=== PATIENT | female | born 1975 | race Caucasian/White ===

== ENCOUNTER 2023-07-12 09:57 | Outpatient (AMB) | payer OTHER, SELFPAY ==
--- NOTE | 2023-07-12 10:00 | MHC.PC.OV ---
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 She would like to see Ortho for right small toe, and degerative disc disease in her neck. Is last menstrual period known: No (hystorectomy in 2019) Allergies buspirone [From BuSpar] Adverse Reaction (Mild, Verified 07/12/23 10:08) anxiety, jittery steri strips Allergy (Mild, Uncoded 07/12/23 10:08) burning skin Medication List - Last Reconciled 07/12/23 by Ney Fermin MD albuterol (refill) 90 mcg/actuation mcg inhalation buprenorphine-naloxone 2-0.5 mg (Suboxone) 1 film buccal DAILY clonidine HCl 0.1 mg PO BID escitalopram oxalate 20 mg PO DAILY hydroxyzine HCl 10 mg PO BEDTIME Tobacco use date assessed: 07/12/23 Dental Screening Dental Screen Date: 07/12/23 Did you have a dental visit in the last 12 months?: Yes Did you have a dental problem in the last 6 months where you did not have access to dental care?: No Was dental information given to patient?: Patient has dentist HPI 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 Cervicalgia, Fibroids SurgHx: Hysterctomy, L breast lumpectomy benign x 2. Iridotomy b/L FHx: Mom: Breast CA., Anx/Dep. Dad: Anx/Dep. SocHx: Smokes 1/2 ppd. EtoH None. MJ daily. No recent drug since 2010 IV and opiods 2018 [facility] Medical History (Updated 07/12/23 @ 10:56 by Joe Mariano) Pneumothorax Cellulitis Pneumonia Tuberculosis Hepatitis Surgical History S/P lumpectomy, left breast [place] teeth extracted H/O: hysterectomy Family History Mother Breast cancer Anxiety Depression Substance use disorder Father Mental health disorder Paternal Grandmother Breast cancer Social History Household Members: Family Both parents involved: No Caregiver staying overnight: No Housing: House Are you a primary critical care unit manager to a significant other at home: No Do you presently have visiting nurse or other home services: No 75 years or older and lives alone: No Alcohol intake: former Patient Tobacco Use Status: Current everyday Tobacco user Tobacco use type: Cigarette Cigarette Packs Per Day: 10 e-Cigarette/Vaping Use: Never Used Patient Interested in Nicotine Replacement: No Use of substances other than those prescribed or required for medical reasons: Yes Substance Use Type: Club/Commercial Credit Lead Drugs, Crack/Cocaine, Hallucinogens, Heroin, IV Drugs, Marijuana, Opiates, Other, Painkillers and Prescription Drugs Substance Use Type Other:: cannabis Last Used Substance Other:: 2019 clean since Have you been hit, kicked, punched, or otherwise hurt by someone within the past year? 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 1. Little interest or pleasure in doing things: more than half the days 2. Feeling down, depressed, or hopeless: more than half the days 3. Trouble falling or staying asleep, or sleeping too much: several days 4. Feeling tired or having little energy: several days 5. Poor appetite or overeating: several days 6. Feeling bad about yourself - or that you are a failure or have let yourself or your family down: several days 7. Trouble concentrating on things, such as reading the newspaper or watching television: more than half the days 8. Moving or speaking so slowly that other people could have noticed. Or the opposite - being so fidgety or restless that you have been moving around a lot more than usual: several days 9. Thoughts that you would be better off or of hurting yourself in some way: not at all Total score: 11 Depression Screening Interpretation: Positive Depression Screening Done: Yes 39761 - PHQ-9 Billing: Yes Source: Developed by Drs. Kingston Neff, Tyesha Silver, Roberto Tamayo and colleagues, with an educational yovany from [employer]. Thrive Questionnaire Date Thrive assessed: 07/12/23 I am a: Patient What is your living situation today?: I have a steady place to live Within the past 12 months, did the food you bought not last and you didn't have the money to get more?: Never true Within the past 12 months, did you worry whether your food would run out before you got money to buy more?: Never true Do you have trouble paying for medicines?: No Do you have trouble getting transportation to medical appointments?: No Do you have trouble paying your heating and electricity bill?: No Do you have trouble taking care of your child, family member or friend?: No Do you have trouble with day-to-day activities such as bathing, preparing meals, shopping, managing finances, etc.?: No Are you currently unemployed and looking for a job?: No Are you interested in more education?: No THRIVE Score: 0 AUDIT C Alcohol Use Questionnaire (AUDIT-C) 1. How often do you have a drink containing alcohol?: Never 3. How often do you have six or more drinks on one occasion?: Never Total Score: 0 CHEMA-7 AMB Questionnaire CHEMA-7 Date CHEMA - 7 assessed: 07/12/23 Feeling nervous, anxious, or on edge: 2 = More than half the days Not being able to stop or control worryin = More than half the days Worrying too much about different things: 2 = More than half the days Trouble relaxin = More than half the days Being so restless that it is hard to sit still: 2 = More than half the days Becoming easily annoyed or irritable: 0 = Not at all Feeling afraid as if something awful might happen: 2 = More than half the days Total CHEMA-7 score (0-4 normal; 5-9 mild; 10-14 moderate; 15-21 severe): 12 Source: Developed by Drs. Kingston Neff, Tyesha Silver, Roberto Tamayo and colleagues, with an educational yovany from [employer]. CHEMA-7 Assessment Billing CHEMA-7 Assessment Tool: CHEMA-7 Assessment 30025 ACT Questionnaire In the past 4 weeks, how much of the time did your asthma keep you from getting as much done at work, school or at home?: A little of the time During the past 4 weeks, how often have you had shortness of breath?: 1-2 times a week (5 times in the past 4 weeks) During the past 4 weeks, how often did your asthma symptoms wake you up at night or earlier than usual in the morning?: Not at all During the past 4 weeks, how often have you had to use your rescue inhaler or nebulizer medication?: Once a week or less (5 or 6 times in the last month) How would you rate your asthma control during the past 4 weeks?: Well controlled ACT Interpretation: Positive Score: 21 Review of Systems Const Denies chills, Denies fatigue, Denies fever(s), Denies headache(s) and Denies weakness ENT Denies dizziness and Denies headache(s) Card Denies chest pain, Denies lightheadedness, Denies dyspnea and Denies other (Palpitations) Resp Denies cough, Denies dyspnea, Denies wheezing and Denies other ( shortness of breath) Musc Denies numbness and Denies tingling Neuro Denies dizziness, Denies headache(s), Denies numbness, Denies tingling, Denies paresthesias and Denies weakness Psych Reports anxiety and Reports depression Endo Denies fatigue Aller/Immun Denies wheezing Physical exam (Primary Care) Vital Signs: Last Vital Signs Pulse 71 07/12/23 10:03 BP 104/62 07/12/23 10:03 Pulse Ox 97 07/12/23 10:03 Oxygen Delivery Method Room Air 07/12/23 10:03 BMI result Body Mass Index 23.4 Tobacco/Smoking Status: Tobacco use Status Tobacco use date assessed 04/11/24 04/11/24 10:32 Patient Tobacco Use Status Current everyday Tobacco 07/12/23 10:32 Tobacco use type Cigarette 07/12/23 10:32 e-Cigarette/Vaping Use Never Used 07/12/23 10:32 PHQ-9: PHQ-9 Score PHQ-9: Total score 11 07/12/23 10:38 Depression Screening Interpretation: Positive Thrive Assessment: Date of Thrive Assessment Date Thrive assessed 07/12/23 07/12/23 10:32 Const General: no acute distress and well developed Nutritional Appearance: well nourished Orientation/consciousness: patient oriented x3 HENMT Head: Yes normocephalic and Yes atraumatic Eyes General: appearance normal, both eyes and all related structures Pupils: Equal, round and reactive pupils present EOM: EOMs intact bilaterally Resp Effort & Inspection: normal respiratory effort Auscultation: clear to auscultation bilaterally Cardio Rate: regular rate Rhythm: regular rhythm Heart sounds: S1 normal heart sound present, S2 normal heart sound present, no gallops, no murmurs and no rubs Neuro General: patient oriented x3 and gait normal Cranial nerves: Yes Equal, round and reactive pupils present Psych Affect: normal affect Assessment and Plan Assessment & Plan (1) Abnormal bowel movement: Code(s): R19.8 - Other specified symptoms and signs involving the digestive system and abdomen Plan: Patient?notes?abnormal?BM?and?is?also?due?for?screening?colonoscopy Referred?to?GI (2) Cervicalgia: Code(s): M54.2 - Cervicalgia Plan: Neck?pain?with?radicular?symptoms?on?the?left She?had?been?followed?by?Ortho?and?I?have?referred?her?to?Orthopedics (3) Right foot pain: Code(s): M79.671 - Pain in right foot Plan: Right?5th?toe?dislocation.??Checking?x-ray?and?refer?to?ortho (4) Fungal infection of toenail: Code(s): B35.1 - Tinea unguium Plan: Avoid?excess?moisture Terbinafine?cream Checking?liver?enzymes?for?discussion?of?oral?medication (5) Asthma: Code(s): J45.909 - Unspecified asthma, uncomplicated Plan: Asthma?with?symptoms?more?than?once?a?week Refilled?her?Ventolin?and?added?Symbicort,?controller?medication.??She?says?she?had?been?on?Advair?in?the?past. Advised?smoking?cessation (6) Smoker: Code(s): F17.200 - Nicotine dependence, unspecified, uncomplicated Plan: Has?nicotine?gum?and?I?advised?she?continue?this?and?work?at?weaning?down?and?stop She?can?also?discuss?bupropion?with?her?psych?med?provider (7) Carpal tunnel syndrome: Code(s): G56.00 - Carpal tunnel syndrome, unspecified upper limb Plan: History?of?Bilateral?carpal?tunnel. She?can?let?me?know?if?this?is?acting?up?and?requires?intervention. (8) History of substance abuse: Code(s): F19.11 - Other psychoactive substance abuse, in remission Plan: History?of?IVDU - last?use?2010 History?of?opiate?abuse?around?2019 Now?on?Suboxone from?[facility] ?and?doing?well.??Has?a?psych?med?provider?and?therapist. Recently?started?clonidine?for?anxiety?and?can?also?help?with?this (9) Depression with anxiety: Code(s): F41.8 - Other specified anxiety disorders Plan: Anxiety?is?elevated?and?also?has?depression.??She?is?in?treatment?and?has?escitalopram?and?clonidine Continue?current?care. (10) Screening for colon cancer: Code(s): Z12.11 - Encounter for screening for malignant neoplasm of colon Plan: Patient?is?47?and?due?for?colonoscopy. Referred?to?GI (11) Laboratory exam ordered as part of routine general medical examination: Code(s): Z00.00 - Encounter for general adult medical examination without abnormal findings Plan: Check?labs Orders: Orders Complete Blood Count Auto Diff Today Z00.00 - Encounter for general adult medical examination without abnormal findings Microalbumin, Random (w Creat) Today I10 - Essential (primary) hypertension TSH reflex Free T4 Today Z00.00 - Encounter for general adult medical examination without abnormal findings UA and rflx microscopic Today Z00.00 - Encounter for general adult medical examination without abnormal findings Vitamin D 25-OH Total Today E55.9 - Vitamin D deficiency, unspecified Vitamin B12 and Folate Today E53.8 - Deficiency of other specified B group vitamins Comprehensive [place]. Panel Fast Today Z00.00 - Encounter for general adult medical examination without abnormal findings Lipid Panel Today Z00.00 - Encounter for general adult medical examination without abnormal findings XR foot RT min 3V Today M54.2 - Cervicalgia, M79.671 - Pain in right foot, R19.8 - Other specified symptoms and signs involving the digestive system and abdomen Referrals Orthopedics Referral M54.2 - Cervicalgia, M79.671 - Pain in right foot Gastroenterology Referral R19.8 - Other specified symptoms and signs involving the digestive system and abdomen, Z12.11 - Encounter for screening for malignant neoplasm of colon Medications: New albuterol sulfate 90 mcg/actuation (Ventolin HFA) 2 puffs inhalation Q4-6H 30 days PRN 8.5 grams 4RF shortness of breath or wheezing budesonide-formoterol 80-4.5 mcg/actuation (Symbicort) 1 inh inhalation BID 30 days 10.2 grams 3RF terbinafine HCl 1% (Antifungal (terbinafine)) 1 appl topical BID 30 days 30 grams 2RF Coding Level of Care Code New Pt Level 4 (06417) Diagnoses Abnormal bowel movement R19.8 Cervicalgia M54.2 Right foot pain M79.671 Fungal infection of toenail B35.1 Asthma J45.909 Smoker F17.200 Carpal tunnel syndrome G56.00 History of substance abuse F19.11 Depression with anxiety F41.8 Screening for colon cancer Z12.11 Laboratory exam ordered as part of routine general medical examination Z00.00 Additional Codes CHEMA-7 Assessment Billing - CHEMA-7 Assessment Tool: CHEMA-7 Assessment 18589 ([id number])
[2023-07-12 10:03] VITALS: BP 104/62; PULSE 71; O2SAT 97; BMI 23.4
== END 2023-07-12 11:14 | disposition home or self-care (01) ==
PROVIDERS: Visit Provider Family Medicine
DX: M54.2 Cervicalgia (principal); M79.671 Pain in right foot; F19.11 Other psychoactive substance abuse, in remission; B35.1 Tinea unguium; R19.8 Other specified symptoms and signs involving the digestive system and abdomen; J45.909 Unspecified asthma, uncomplicated; F17.200 Nicotine dependence, unspecified, uncomplicated; G56.00 Carpal tunnel syndrome, unspecified upper limb; F41.8 Other specified anxiety disorders; Z12.11 Encounter for screening for malignant neoplasm of colon
CPT/HCPCS: 99204

== ENCOUNTER 2023-07-24 09:15 | Outpatient (REF) | payer OTHER, SELFPAY ==
[2023-07-24 11:29] LABS: Appearance Urine Clear; Color Urine Yellow; Glucose Urine UA Negative (Negative); Leukocyte Esterase Urine Negative (Negative); Nitrite Urine Negative (Negative); PH 5.5 (5.0-9.0); Specific Gravity - Urine 1.015 (1.005-1.025); Urine Blood Negative (Negative); Urine Ketones Negative (Negative); Urine Protein Negative (Neg-Trace)
[2023-07-24 11:36] LABS: MANUAL DIFF FLAG NO
[2023-07-24 11:42] LABS: Basophils Absolute Auto 0.1 X10*3/uL (0.0-0.2); Eosinophils Percent Auto 0.8 % (0-4); Hematocrit 44.6 % (37.0-47.0); Hemoglobin 15.1 g/dl (12.0-16.0); Imm Gran Abs Auto 0.01 X10*3/uL (0.00-0.03); Imm Gran Pct Auto 0.2 % (0.0-0.4); Lymphocytes Absolute Auto 1.7 X10*3/uL (1.2-4.9); Lymphocytes Percent Auto 33.3 % (20-40); Mean Corpuscular HGB Conc 33.9 g/dl (31.0-35.0); Mean Corpuscular Hemoglobin 31.5 pg (27.0-33.0); Mean Corpuscular Volume 93.1 fL (80.0-98.0); Mean Platelet Volume 10.2 fL (9.4-12.3); Monocytes Absolute Auto 0.3 X10*3/uL (0.1-1.2); Monocytes Percent Auto 6.2 % (2-11); Neutrophils Absolute Auto 2.9 x10*3/uL (2.0-8.3); Neutrophils Percent Auto 58.5 % (45-73); Platelet Count 238 X10*3/uL (160-400); Red Blood Count 4.79 X10*6/uL (4.20-5.50); Red Cell Distribution Width 12.7 % (11.0-16.0)
[2023-07-24 12:17] LABS: Microalbumin Urine < 5.0 mg/L
[2023-07-24 12:36] LABS: Alanine Aminotransferase 12 U/L (0-31); Albumin Level 4.3 g/dL (3.5-5.0); Alkaline Phosphatase 74 U/L (39-117); Anion Gap 9 (12-20); Aspartate Amino Transferase 18 U/L (5-31); Bilirubin Total 0.8 mg/dL (0.0-1.0); Blood Urea Nitrogen 13 mg/dL (9-16); Calcium 9.6 mg/dL (8.4-10.2); Carbon Dioxide 28 mmol/L (22-29); Chloride 108 mmol/L (96-108); Cholesterol 220 mg/dL (<200); Estimated Glomerular Filt Rate > 60; Glucose Fasting 95 mg/dL (60-99); HDL Cholesterol 58 mg/dL (>40); LDL Cholesterol Calculated 151 mg/dL (<100); Potassium 4.2 mmol/L (3.3-5.1); Sodium 141 mmol/L (135-145); Total Protein 7.3 g/dL (6.5-8.0); Triglycerides 56 mg/dL (<150)
[2023-07-24 12:39] LABS: TSH reflex Free T4 0.72 uIU/mL (0.32-4.0); Vitamin D 25-OH Total 17.7 ng/mL (>30)
[2023-07-24 12:54] LABS: Folate 7.8 ng/mL (> or = 4.0); Vitamin B12 345 pg/mL (200-900)
== END 2023-07-24 09:16 | disposition home or self-care (01) ==
LOC: HO.WFDLDS 09:15
PROVIDERS: Visit Provider Family Medicine
DX: Z00.00 Encounter for general adult medical examination without abnormal findings (principal); E55.9 Vitamin D deficiency, unspecified; E53.8 Deficiency of other specified B group vitamins; I10 Essential (primary) hypertension
CPT/HCPCS: 36415; 80053; 80061; 81003; 82043; 82306; 82570; 82607; 82746; 84443; 85025

== ENCOUNTER 2023-08-23 08:36 | Outpatient (AMB) | payer OTHER, SELFPAY ==
[2023-08-23 08:43] VITALS: BMI 26.2
--- NOTE | 2023-08-23 08:43 | MHC.OFFVIS ---
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 She was reffered by her PCP, Ney Fermin for degenerative disc disease in her neck. Patient reports that she has seen an ortho spine surgeon in the past who recommended surgical intervention. She also reports that she has carpal tunnel of bilateral hands. She reports that she has a chronically dislocated small toe on the right foot, she was told that she would need to have a pin placed in her foot. Allergies buspirone [From BuSpar] Adverse Reaction (Mild, Verified 08/23/23 08:52) anxiety, jittery steri strips Allergy (Mild, Uncoded 08/23/23 08:52) burning skin Medication List - Last Reconciled 08/23/23 by Chely Vo MD albuterol sulfate 90 mcg/actuation (Ventolin HFA) 2 puffs inhalation Q4-6H PRN 30 days budesonide-formoterol 80-4.5 mcg/actuation (Symbicort) 1 inh inhalation BID 30 days buprenorphine-naloxone 2-0.5 mg (Suboxone) 1 film buccal DAILY clonidine HCl 0.1 mg PO BID escitalopram oxalate 20 mg PO DAILY hydroxyzine HCl 10 mg PO BEDTIME terbinafine HCl 1% (Antifungal (terbinafine)) 1 appl topical BID 30 days HPI Comments Details: Chronic neck pain, more than 5 years. Not as frequent from previous. Hurts less with exercise and yoga. Currently having pain mostly left trapezius. Alternates sides. Tinglings on arms but not numbness. Sometimes cracks . History of CTS bilateral, based on EMG per patient's report, no surgery. Treatment done so far: physical therapy - none past year yoga at home No injection yet. History of substance abuse; on suboxoen. Smokes cigarette and marijuana. Last MRI 5 years ago. Saw a neurosurgeon around that time. Have not seen any specialist since. [facility] Medical History (Updated 08/23/23 @ 09:10 by Chely Vo MD) Cervical spondylosis Pneumothorax Cellulitis Pneumonia Tuberculosis Hepatitis Surgical History S/P lumpectomy, left breast [place] teeth extracted H/O: hysterectomy Family History Mother Breast cancer Anxiety Depression Substance use disorder Father Mental health disorder Paternal Grandmother Breast cancer Social History Household Members: Family Both parents involved: No Caregiver staying overnight: No Housing: House Are you a primary care coordinator to a significant other at home: No Do you presently have visiting nurse or other home services: No 75 years or older and lives alone: No Alcohol intake: former Patient Tobacco Use Status: Current everyday Tobacco user Tobacco use type: Cigarette Cigarette Packs Per Day: 10 e-Cigarette/Vaping Use: Never Used 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 Use 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: 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 Bilingual Drugs, Crack/Cocaine, Hallucinogens, Heroin, IV Drugs, Marijuana, Opiates, Other, Painkillers and Prescription Drugs Special nick needs: Yes Special nick accommodation details: [facility] service: No Current occupational status: employed 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 Patient was appropriately conversant and oriented. Good historian. MSK: Inspection reveals appropriate head and neck positioning. Tight on left upper trapezius. Trigger points on left rhomboids. Cervical ROM was full. Spurling's sign negative. Negative scapular winging. Bilateral shoulder, elbow and wrist ROM WNL. No ligamentous laxity or crepitance. No increased effusion. Strength is 5/5 in all muscle groups tested. No increased tone noted. Neurological: Neurologic examination of the upper and lower extremities was nonfocal with intact sensation, muscle stretch reflexes and without focal motor deficits. Nunez?s negative bilaterally. Babinski was down going bilaterally. Clonus was negative. Gait is non-antalgic without loss of balance. Results Reviewed Results Reviewed: I independently reviewed the results of the following: Cervical x-rays done today in the office shows loss of lordosis, decreased disc space most notably C3-4. Await final reading. I reviewed records from the following: PCP Assessment & Plan Assessment & Plan (1) Myofascial pain: Code(s): M79.18 - Myalgia, other site Category: Medical (2) Cervical spondylosis: Code(s): M47.812 - Spondylosis without myelopathy or radiculopathy, cervical region Category: Medical Plan Chronic neck pain, presenting today with tightness and trapezius and rhomboids. Suspect myofascial. No signs of cervical myelopathy radiculopathy at this time. Encouraged to continue got home as this helps with myofascial pain. Also agreed on referring her to physical therapy. We briefly discussed options for trigger point injections, which she will consider if not improve after PT. Assessment and plan discussed with patient, and patient was agreeable. All questions were answered thoroughly. Follow-up after 3-4 months. 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 She understands that I am not a foot/ankle surgeon but she still wants to see me as scheduled in a couple weeks for preliminary workup. Chely Vo MD, NANCY Board Certified, [place] [employer] and Rehabilitation (ABPMR) Board Certified, [place] Board [employer] Electrodiagnostic [employer] (ABEM) Orders: Orders XR cervical spine 3V Today M54.2 - Cervicalgia PT Evaluation and Treatment Today M47.812 - Spondylosis without myelopathy or radiculopathy, cervical region, M79.18 - Myalgia, other site Coding Level of Care Code New Pt Level 4 (71879) Diagnoses Myofascial pain M79.18 Cervical spondylosis M47.812
== END 2023-08-23 09:10 | disposition home or self-care (01) ==
PROVIDERS: Visit Provider Physical Medicine & Rehabilitation
DX: M47.812 Spondylosis without myelopathy or radiculopathy, cervical region (principal); M79.18 Myalgia, other site
CPT/HCPCS: 99203

== ENCOUNTER 2023-08-23 08:59 | Outpatient (REF) | payer OTHER, SELFPAY ==
--- NOTE | ~2023-08-23 | XR_ITS ---
EXAMINATION: XR CERVICAL SPINE CLINICAL INFORMATION: Neck pain. COMPARISON: None available. TECHNIQUE: 3 views of the cervical spine were obtained. FINDINGS: Straightening of the normal cervical lordosis. Advanced multilevel degenerative changes in the cervical spine with loss of disc space height and hypertrophic change at C3-C4, C4-C5, C5-C6, and C6-C7. Limited visualization of C7 due to overlying soft tissues. XR/XR cervical spine 3V IMPRESSION: Advanced multilevel degenerative disc disease in the cervical spine.
== END 2023-08-23 09:00 | disposition home or self-care (01) ==
LOC: HO.HOSX 08:59
PROVIDERS: Visit Provider Physical Medicine & Rehabilitation
DX: M79.18 Myalgia, other site (principal); M47.812 Spondylosis without myelopathy or radiculopathy, cervical region
CPT/HCPCS: 72040; 99202

== ENCOUNTER 2023-09-06 10:07 | Outpatient (REF) | payer OTHER, SELFPAY ==
--- NOTE | ~2023-09-06 | XR_ITS ---
EXAMINATION: XR FOOT, RIGHT CLINICAL INFORMATION: An unspecified foot fifth toe. COMPARISON: None available. TECHNIQUE: AP, lateral, and oblique views of the right foot. FINDINGS: There is subluxation at the proximal interphalangeal joint of the fifth toe with lateral and proximal displacement of the distal component. Small ossicle along the medial base of the distal portion. Moderate degenerative changes at the PIP joint of the fifth digit. Minimal degenerative changes in the first metatarsophalangeal joint. Moderate plantar calcaneal spur. Tiny dorsal calcaneal spur. XR/XR foot RT min 3V IMPRESSION: Subluxation at the proximal interphalangeal joint of the fifth toe with lateral and proximal displacement of the distal component. Small ossicle along the medial base of the distal portion. Moderate degenerative changes at the PIP joint of the fifth digit.
== END 2023-09-06 10:08 | disposition home or self-care (01) ==
LOC: HO.HOSX 10:07
PROVIDERS: Visit Provider Physical Medicine & Rehabilitation
DX: S93.104S Unspecified dislocation of right toe(s), sequela (principal)
CPT/HCPCS: 73630; 99212

== ENCOUNTER 2023-10-19 09:35 | Outpatient (AMB) | payer OTHER, SELFPAY ==
--- NOTE | 2023-10-19 09:38 | A.OFFVIS_ITS ---
Vital Signs 10/19/23 09:50 Height 5 ft 3 in Weight 135 lb 12.876 oz BMI 24.1 BP 110/76 Blood Pressure Location Rt brachial Position Sitting Pulse 82 Pulse Source Pulse Oximeter Pulse Oximetry (%) 98 Oxygen Delivery Method Room Air Intake Visit Reasons: Colonoscopy Screening Intake Note: Noa presents in office today for a scheduled initial assessment visit. CC; Pt is here for colo screen. Pt has hx of multiple GI issues including but not limited to; abnormal bowel habits, h pylori infection, as well as gastroparesis. Pt reports that they often experience nausea and abdominal pain which they report could be somewhat related to their moderate to severe anxiety, however; given their GI related hx, they are also concerned about the potential health related implications. Pt also reports having frequent diarrhea which has been a recent change. Pt also reports a new onset of motor vehicle / motion related sickness. Pt states that this will result in moderate to severe nausea and vomiting. Pt has prior hx of colo s/p approximately 10 years ago. Evaluation Analyst Required: No Allergies benzoin Allergy (Intermediate, Verified 10/19/23 09:41) Rash povidone-iodine Allergy (Intermediate, Verified 10/19/23 09:41) Rash buspirone [From BuSpar] Adverse Reaction (Mild, Verified 10/19/23 09:41) anxiety, jittery steri strips Allergy (Mild, Uncoded 08/23/23 08:52) burning skin HPI HPI Colonoscopy Screening: Details: 47 year old? female here today for pre colonoscopy screening.? Patient was sent to us by her PCP.? Patient reports that she had colonoscopy 9 or 10 years ago along with upper endoscopy.? Patient admits to have symptoms of anxiety and occasionally attributes that her nausea and epigastric pain she feels like is worse when patient gets very anxious. Patient recently started drinking more water. Started couple months ago on Lexapro back again and it feels like it helps. Currently patient is on Suboxone. Previously patient was on methadone last time when she had upper endoscopy in day found H pylori, possible gastroparesis, that is when she started taking Suboxone. Denies any personal or family history of gastrointestinal disease, colon polyps, or CRC.? Denies history of difficulty with sedation or anesthesia in the past.? Negative for history of sleep apnea.? Denies any history of cardiac, renal, pulmonary, or hepatic disease.?? No history of infectious? diseases like hepatitis A, B, C, HIV or tuberculosis.? Patient is not on any anticoagulation [facility] Medical History Dislocation of fifth toe, right, closed Cervical spondylosis Pneumothorax Cellulitis Pneumonia Tuberculosis Hepatitis Surgical History Hx of colonoscopy (~2013) S/P lumpectomy, left breast [place] teeth extracted H/O: hysterectomy Family History Mother Breast cancer Anxiety Depression Substance use disorder Father Mental health disorder Paternal Grandmother Breast cancer Social History Household Members: Family Housing: House Are you a primary home health care coordinator to a significant other at home: No Do you presently have visiting nurse or other home services: No Alcohol intake: former Patient Tobacco Use Status: Current everyday Tobacco user Tobacco use type: Cigarette Cigarette Packs Per Day: 10 e-Cigarette/Vaping Use: Never Used Substance Use Type: Club/Lock Fitter Drugs, Crack/Cocaine, Hallucinogens, Heroin, IV Drugs, Marijuana, Opiates, Other, Painkillers and Prescription Drugs Special nick needs: Yes Special nick accommodation details: anglican service: No Current occupational status: employed 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 Cognitive needs: No Hearing needs: No Vision needs: Yes (Patient wears glasses) Review of Systems Const Denies weight gain and Denies weight loss ENT Reports no additional complaints, Denies dysphagia and Denies odynophagia Card Reports no additional complaints Resp Reports no additional complaints GI Reports abdominal pain (Occasional epigastric), Denies belching, Denies melena, Reports bloating, Denies change in bowel habits, Denies dysphagia, Denies excessive flatus, Denies dyspepsia, Reports heartburn, Denies diarrhea, Denies loose stools, Denies nausea, Denies odynophagia and Denies vomiting Reports no additional complaints Musc Reports no additional complaints Neuro Reports no additional complaints Psych Reports no additional complaints Endo Reports no additional complaints Physical Exam Vital Signs: Last Vital Signs Pulse 82 10/19/23 09:50 BP 110/76 10/19/23 09:50 Pulse Ox 98 10/19/23 09:50 Oxygen Delivery Method Room Air 10/19/23 09:50 BMI result Body Mass Index 24.1 Const General: healthy appearing, no acute distress and well developed Nutritional Appearance: well nourished Orientation/consciousness: patient oriented x3 Resp Effort & Inspection: normal respiratory effort, able to speak in complete sentences, no tracheal deviation and symmetric chest movement Auscultation: clear to auscultation bilaterally Cardio Rate: regular rate GI Inspection: Yes normal to inspection and No distended Palpation (GI): Soft to palpation, not firm, nontender and No hepatosplenomegaly present Auscultation: normal bowel sounds General: Yes no CVA tenderness Back/Spine/Pelvis Back: no CVA tenderness Skin General skin exam: elasticity normal, turgor normal and dry skin Neuro General: patient oriented x3 Psych Appearance: grossly normal Mental Status: mental status grossly normal Assessment & Plan Assessment & Plan (1) Screening for colon cancer: Code(s): Z12.11 - Encounter for screening for malignant neoplasm of colon Category: Medical (2) Nausea: Code(s): R11.0 - Nausea (3) GERD (gastroesophageal reflux disease): Code(s): K21.9 - Gastro-esophageal reflux disease without esophagitis Qualifiers: Esophagitis presence: esophagitis presence not specified Qualified Code(s): K21.9 - Gastro-esophageal reflux disease without esophagitis Plan Patient denies any cardiac or respiratory symptoms. Patient reports occasional epigastric pain, nausea and acid reflux. Occasional dyspepsia without dysphagia or odynophagia. Patient does admit that her anxiety makes her symptoms worse. Patient will be sent for upper endoscopy, history of H pylori in the past that he was on endoscopy and treated. Patient will be started on Nexium. She will call our office she will continue to have symptoms. Discussed with patient avoiding dietary triggers and late night snacking. Staying upright for minimum 3 hours after meals discussed patient.? Denies any issues with anesthesia in the past.? Denies any history of sleep apnea.? No history infectious diseases in the past or present.? Not on any anticoagulation therapy.? No family or personal history of colon cancer or polyps.? Patient denies melena, hematochezia, unintentional weight loss or ribbon like stools.? Discussed at length the pre- procedure,? prep, diet & medications as well as what to expect prior, during and after the procedure.?? Stressed the importance of good bowel prep.? Recommended the use of Vaseline or Calmoseptine OTC & baby wipes with bowel movements to promote comfort.? ?Patient verbalizes understanding and agrees to plan of care.? She was given the opportunity to ask questions and all questions answered.? We will see her after the procedure.? Medications: New polyethylene glycol 3350 (Miralax) As directed by gastroenterology department at [facility] 238 grams PO ONCE 238 grams 0RF Z12.11 - Encounter for screening for malignant neoplasm of colon esomeprazole magnesium (Nexium) 20 mg PO DAILY 30 caps 4RF bisacodyl (Dulcolax (bisacodyl)) take 4 tabs at noon the day before your colonoscopy 20 mg (4 x 5 mg) PO ONCE 1 day 4 tabs 0RF Z12.11 - Encounter for screening for malignant neoplasm of colon Coding Level of Care Code New Pt Level 4 (49378) Diagnoses Screening for colon cancer Z12.11 Nausea R11.0 Gastroesophageal reflux disease, unspecified whether esophagitis present K21.9 Esophagitis presence: esophagitis presence not specified Time Spent (min) 45 Comment 30 minutes spent with patient and additional 15 minutes spent reviewing her records
[2023-10-19 09:50] VITALS: BP 110/76; PULSE 82; O2SAT 98; BMI 24.1
== END 2023-10-19 11:03 | disposition home or self-care (01) ==
PROVIDERS: Visit Provider Nurse Practitioner Family
DX: Z12.11 Encounter for screening for malignant neoplasm of colon (principal); R11.0 Nausea; K21.9 Gastro-esophageal reflux disease without esophagitis; Z01.818 Encounter for other preprocedural examination
CPT/HCPCS: 99204

== ENCOUNTER → 2023-10-19 09:35 | Outpatient (BNVA) | payer OTHER, SELFPAY | PROVIDERS: Visit Provider Nurse Practitioner Family | DX: Z01.818 Encounter for other preprocedural examination (principal); K31.84 Gastroparesis; R11.0 Nausea; K21.9 Gastro-esophageal reflux disease without esophagitis | CPT/HCPCS: 99202 ==

== ENCOUNTER 2023-11-20 11:00 | Outpatient (RCR) | payer OTHER, SELFPAY | END 2023-11-21 14:28 | disposition home or self-care (01) | LOC: HO.PT 11:00 | PROVIDERS: PCP Family Medicine; Visit Provider Physical Medicine & Rehabilitation | DX: M79.18 Myalgia, other site (principal); M47.812 Spondylosis without myelopathy or radiculopathy, cervical region | CPT/HCPCS: 97110; 97112; 97140; 97162 ==

== ENCOUNTER 2023-12-05 09:03 | Outpatient (AMB) | payer OTHER, SELFPAY ==
--- NOTE | 2023-12-05 09:22 | A.OFFPC_ITS ---
Vital Signs 12/05/23 09:31 Height 5 ft 3 in Weight 136 lb 4 oz BMI 24.1 BP 116/60 Blood Pressure Location Rt brachial Position Sitting Respiration 12 Pulse 93 Pulse Source Pulse Oximeter Temp 98.6 F Temp Source Temporal Artery Scan Pulse Oximetry (%) 94 Oxygen Delivery Method Room Air Intake Visit Reasons: CPE with f/u labs and health maint. Intake Note: CPE Is last menstrual period known: No Post menopausal: Yes Patient : No Allergies benzoin Allergy (Intermediate, Verified 12/05/23 09:23) Rash povidone-iodine Allergy (Intermediate, Verified 12/05/23 09:23) Rash buspirone [From BuSpar] Adverse Reaction (Mild, Verified 12/05/23 09:23) anxiety, jittery steri strips Allergy (Mild, Uncoded 08/23/23 08:52) burning skin Tobacco use date assessed: 12/05/23 Dental Screening Dental Screen Date: 12/05/23 Did you have a dental visit in the last 12 months?: Yes Did you have a dental problem in the last 6 months where you did not have access to dental care?: No Was dental information given to patient?: Patient has dentist HPI CPE with f/u labs and health maint. HPI Details 48 y/o female presents for a CPE with f/ u labs and health maintenance. Labs drawn 07/24/23. Reviewed labs with pt. Triglycerides 56. TC 220. LDL 151. HDL 58. Vitamin D level low at 17.7. PHQ-9 11, CHEMA-7 13 today. Has complaints of perimenopausal symptoms. Ongoing complaints of toenail fungus. Her liver enzymes were fine at last check. HPI Comments History of Present Illness Details Documentation assistance for Ney Fermin MD, was provided by Joe Mariano, Prop Making Supervisor on 12/05/2023 at 9:26 AM EST. I, Dr. Fermin, have read, observed, and verified documentation. [facility] Medical History Dislocation of fifth toe, right, closed Cervical spondylosis Pneumothorax Cellulitis Pneumonia Tuberculosis Hepatitis Surgical History Hx of colonoscopy (~2013) S/P lumpectomy, left breast [place] teeth extracted H/O: hysterectomy Family History Mother Breast cancer Anxiety Depression Substance use disorder Father Mental health disorder Paternal Grandmother Breast cancer Social History (Updated 12/05/23 @ 09:28 by Maggie Araujo) Household Members: Family Both parents involved: No Caregiver staying overnight: No Housing: House Are you a primary career development counselor to a significant other at home: No Do you presently have visiting nurse or other home services: No 75 years or older and lives alone: No Alcohol intake: former Patient Tobacco Use Status: Current everyday Tobacco user Tobacco use type: Cigarette Cigarette Packs Per Day: 10 e-Cigarette/Vaping Use: Never Used Use of substances other than those prescribed or required for medical reasons: Yes Substance Use Type: Club/Licensed Psychologist Director Drugs, Crack/Cocaine, Hallucinogens, Heroin, IV Drugs, Marijuana, Opiates, Other, Painkillers and Prescription Drugs Substance Use Type Other:: MARIJUANA Special nick needs: Yes Special nick accommodation details: nondenominational Patient : No service: No Current occupational status: employed 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 1. Little interest or pleasure in doing things: several days 2. Feeling down, depressed, or hopeless: several days 3. Trouble falling or staying asleep, or sleeping too much: not at all 4. Feeling tired or having little energy: more than half the days 5. Poor appetite or overeating: several days 6. Feeling bad about yourself - or that you are a failure or have let yourself or your family down: several days 7. Trouble concentrating on things, such as reading the newspaper or watching television: nearly every day 8. Moving or speaking so slowly that other people could have noticed. Or the opposite - being so fidgety or restless that you have been moving around a lot more than usual: more than half the days 9. Thoughts that you would be better off or of hurting yourself in some way: not at all Total score: 11 Depression Screening Interpretation: Positive Depression Screening Done: Yes 67248 - PHQ-9 Billing: Yes Source: Developed by Drs. Kingston Neff, Tyesha Silver, Roberto Tamayo and colleagues, with an educational yovany from [employer]. Thrive Questionnaire Date Thrive assessed: 12/05/23 I am a: Patient What is your living situation today?: I have a steady place to live Within the past 12 months, did the food you bought not last and you didn't have the money to get more?: Never true Within the past 12 months, did you worry whether your food would run out before you got money to buy more?: Never true Do you have trouble paying for medicines?: No Do you have trouble getting transportation to medical appointments?: No Do you have trouble paying your heating and electricity bill?: No Do you have trouble taking care of your child, family member or friend?: No Do you have trouble with day-to-day activities such as bathing, preparing meals, shopping, managing finances, etc.?: No Are you currently unemployed and looking for a job?: No Are you interested in more education?: No Please select the resources that you would like help with: None Currently or been in a relationship where the following occur: No concerns reported THRIVE Score: 0 AUDIT C Alcohol Use Questionnaire (AUDIT-C) 1. How often do you have a drink containing alcohol?: Never 3. How often do you have six or more drinks on one occasion?: Never Total Score: 0 Score Reviewed/Action Taken: Yes CHEMA-7 AMB Questionnaire CHEMA-7 Date CHEMA - 7 assessed: 12/05/23 Feeling nervous, anxious, or on edge: 3 = Nearly every day Not being able to stop or control worryin = More than half the days Worrying too much about different things: 2 = More than half the days Trouble relaxin = More than half the days Being so restless that it is hard to sit still: 2 = More than half the days Becoming easily annoyed or irritable: 1 = Several days Feeling afraid as if something awful might happen: 1 = Several days Total CHEMA-7 score (0-4 normal; 5-9 mild; 10-14 moderate; 15-21 severe): 13 Source: Developed by Tyesha Alexander. Nadeem, Roberto Tamayo and colleagues, with an educational yovany from [employer]. CHEMA-7 Assessment Billing CHEMA-7 Assessment Tool: CHEMA-7 Assessment 93145 Review of Systems Const Denies chills, Denies fatigue, Denies fever(s), Denies headache(s) and Denies weakness Eyes Denies change in vision ENT Denies dizziness, Denies headache(s), Denies hearing loss, Denies nasal congestion, Denies sinus pain, Denies sinus pressure and Denies sore throat Card Denies chest pain, Denies lightheadedness, Denies dyspnea and Denies other (pal pitations) Resp Denies cough, Denies dyspnea and Denies wheezing GI Denies abdominal pain, Denies melena, Denies hematochezia, Denies change in bowel habits, Denies dyspepsia and Denies nausea Denies hematuria and Denies dysuria Musc Denies abnormal gait, Denies myalgias, Denies arthralgias, Denies numbness and Denies tingling Skin/Breast Denies rash, Denies unusual bruising and Denies wounds Neuro Denies abnormal gait, Denies dizziness, Denies headache(s), Denies memory loss, Denies numbness, Denies Sensory deficit (Neuro), Denies tingling and Denies weakness Psych Reports anxiety, Reports depression and Denies memory loss Endo Denies cold intolerance, Denies fatigue, Denies heat intolerance, Denies polydipsia and Denies polyuria Khalif/Lymph Denies easy bleeding and Denies easy bruising Aller/Immun Denies wheezing Physical exam (Primary Care) Vital Signs: Last Vital Signs Temp 98.6 F 12/05/23 09:31 Pulse 93 12/05/23 09:31 Resp 12 12/05/23 09:31 BP 116/60 12/05/23 09:31 Pulse Ox 94 12/05/23 09:31 Oxygen Delivery Method Room Air 12/05/23 09:31 BMI result Body Mass Index 24.1 Tobacco/Smoking Status: Tobacco use Status Tobacco use date assessed 12/05/23 12/05/23 09:34 Patient Tobacco Use Status Current everyday Tobacco 12/05/23 09:28 Tobacco use type Cigarette 12/05/23 09:28 e-Cigarette/Vaping Use Never Used 12/05/23 09:28 PHQ-9: PHQ-9 Score PHQ-9: Total score 11 12/05/23 09:34 Depression Screening Interpretation: Positive Thrive Assessment: Date of Thrive Assessment Date Thrive assessed 12/05/23 12/05/23 09:34 Currently or been in a relationship where the following occur: No concerns reported Const General: no acute distress, well developed, alert and awake Nutritional Appearance: well nourished Orientation/consciousness: patient oriented x3 HENMT Head: Yes normocephalic and Yes atraumatic Ears: hearing grossly normal bilaterally and TM's normal bilaterally General nose exam: Normal external nose present and Normal nares present Mouth: Normal oral and palatal mucosa present and moist mucous membranes Teeth and gingiva: dentition normal Throat: Yes posterior oropharynx normal Eyes General: appearance normal, both eyes and all related structures Pupils: Equal, round and reactive pupils present and Pupil accommodation reflex normal EOM: EOMs intact bilaterally Neck Neck: Yes normal visual inspection, Yes no lymphadenopathy and Yes trachea midline Thyroid: Thyroid normal Carotids: no bruits Lymphatic: no lymphadenopathy noted Chest Chest palpation & inspection: normal inspection of the chest Resp Effort & Inspection: normal respiratory effort Auscultation: clear to auscultation bilaterally Cardio Rate: regular rate Rhythm: regular rhythm Heart sounds: S1 normal heart sound present, S2 normal heart sound present, no gallops, no murmurs and no rubs Bruits: no abdominal aortic bruits and no carotid bruits GI Palpation (GI): No Abdominal aortic bruit present, Soft to palpation, nontender, No hepatosplenomegaly present and No Rebound tenderness present Auscultation: normal bowel sounds General: Yes no CVA tenderness Back/Spine/Pelvis Back: no CVA tenderness Cervical Spine: cervical ROM normal and No Cervical spine tenderness Thoracic/Lumbar Spine: thoraco-lumbar ROM normal, No pain with thoraco-lumbar ROM, No thoracic spinal tenderness and No lumbar spinal tenderness Skin Lesions: no lesions Rashes: no rashes Trauma: no lacerations or abrasions Wounds: no wounds Nails: normal Neuro General: patient oriented x3 Cranial nerves: Yes Equal, round and reactive pupils present Cognition (Neuro): normal cognition Gait exam (Neuro): Normal gait present Motor exam (neuro): 5/5 motor strength present throughout Sensory Exam: No Sensory deficit (Neuro) Deep tendon reflexes (DTR's): Right patellar reflex intensity grade: 2+ and Left patellar reflex intensity grade: 2+ Extrem General: Yes normal to inspection and No edema Psych Appearance: grossly normal Affect: normal affect Attitude: cooperative Thought process: Normal thought process present Assessment and Plan Assessment & Plan (1) Adult general medical exam: Code(s): Z00.00 - Encounter for general adult medical examination without abnormal findings Plan: 48-year-old?female?presents?for?complete?physical?exam Encouraged?healthy?diet?with?active?lifestyle?and?plenty?of?exercise (2) Hypercholesterolemia: Code(s): E78.00 - Pure hypercholesterolemia, unspecified Plan: LDL?cholesterol?is?too?high Encouraged?diet?low?in?saturated?fats?and?cholesterol Will?recheck?in?3?months.??We?discussed?that?if?she?is?unable?to?bring?this?down ?significantly,?we?should?discuss?medications (3) Low vitamin D level: Code(s): R79.89 - Other specified abnormal findings of blood chemistry Plan: Vitamin-D?level?is?significantly?low. Will?send?script?for?vitamin?D We?can?follow-up?at?in?a?few?months. (4) Perimenopausal symptoms: Code(s): N95.1 - Menopausal and female climacteric states Plan: Referred?to?director safety?at?patient?request (5) Screening for cervical cancer: Code(s): Z12.4 - Encounter for screening for malignant neoplasm of cervix Plan: She?is?s/p?hysterectomy She?would?like?a?referral?to?discuss?with?director safety Referred (6) Breast cancer screening by mammogram: Code(s): Z12.31 - Encounter for screening mammogram for malignant neoplasm of breast Plan: Prior?mammograms?at?[facility] History?of?lumpectomy She?says?she?is?due ?in?December?and?I?have?ordered?mammogram?which?she?can?get?done?at?[facility] (7) Screening for colon cancer: Code(s): Z12.11 - Encounter for screening for malignant neoplasm of colon Plan: Followed?by?Gastroenterology?at?[facility]?and?has?colonoscopy?scheduled (8) Fungal infection of toenail: Code(s): B35.1 - Tinea unguium Plan: Liver?enzymes?are?normal Trial?Lamisil She?will?follow-up?by?telemedicine?in?a?few?weeks?to?recheck?liver?enzymes Orders: Orders Comprehensive [place]. Panel Fast 2 Months E78.00 - Pure hypercholesterolemia, unspecified, Z00.00 - Encounter for general adult medical examination without abnormal findings Lipid Panel 2 Months E78.00 - Pure hypercholesterolemia, unspecified, Z00.00 - Encounter for general adult medical examination without abnormal findings Comprehensive [place]. Panel Fast Today B35.1 - Tinea unguium, Z00.00 - Encounter for general adult medical examination without abnormal findings Vitamin D 25-OH Total 2 Months E55.9 - Vitamin D deficiency, unspecified, R79.89 - Other specified abnormal findings of blood chemistry MM tomosynthesis screening BI Today Z12.31 - Encounter for screening mammogram for malignant neoplasm of breast Referrals [facility] Referral N95.1 - Menopausal and female climacteric states Medications: New terbinafine HCl 250 mg PO DAILY 30 days 30 tabs 1RF Coding Level of Care Code Est Pt Level 3 (49368) Est Pt Prev Care 40-64y(64311) Diagnoses Adult general medical exam Z00.00 Hypercholesterolemia E78.00 Low vitamin D level R79.89 Perimenopausal symptoms N95.1 Screening for cervical cancer Z12.4 Breast cancer screening by mammogram Z12.31 Screening for colon cancer Z12.11 Fungal infection of toenail B35.1 Additional Codes CHEMA-7 Assessment Billing - CHEMA-7 Assessment Tool: CHEMA-7 Assessment [id number] ([id number])
[2023-12-05 09:31] VITALS: BP 116/60; PULSE 93; RESP 12; TEMP 37; O2SAT 94; BMI 24.1
== END 2023-12-05 10:10 | disposition home or self-care (01) ==
PROVIDERS: PCP Family Medicine; Visit Provider Family Medicine
DX: Z00.00 Encounter for general adult medical examination without abnormal findings (principal); E78.00 Pure hypercholesterolemia, unspecified; R79.89 Other specified abnormal findings of blood chemistry; N95.1 Menopausal and female climacteric states; Z12.31 Encounter for screening mammogram for malignant neoplasm of breast; Z12.11 Encounter for screening for malignant neoplasm of colon; B35.1 Tinea unguium
CPT/HCPCS: 99213; 99396

== ENCOUNTER 2023-12-26 10:54 | Outpatient (REF) | payer OTHER, SELFPAY ==
[2023-12-26 15:02] LABS: Appearance Urine Clear; Color Urine Yellow; Glucose Urine UA Negative (Negative); Leukocyte Esterase Urine Negative (Negative); Nitrite Urine Negative (Negative); PH 6.5 (5.0-9.0); Specific Gravity - Urine <= 1.005 (1.005-1.025); Urine Blood Negative (Negative); Urine Ketones Negative (Negative); Urine Protein Negative (Neg-Trace)
== END 2023-12-26 10:55 | disposition home or self-care (01) ==
LOC: HO.LAB 10:54
PROVIDERS: PCP Family Medicine; Visit Provider Family Medicine
DX: N83.202 Unspecified ovarian cyst, left side (principal); R82.71 Bacteriuria
CPT/HCPCS: 81003; 87086; 99212

== ENCOUNTER 2023-12-26 10:54 | Outpatient (AMB) | payer OTHER, SELFPAY ==
--- NOTE | 2023-12-26 11:04 | A.OFFPC_ITS ---
Vital Signs 12/26/23 11:07 Height 5 ft 3 in Weight 138 lb BMI 24.4 BP 110/60 Blood Pressure Location Lt brachial Position Sitting Respiration 12 Pulse 105 H Pulse Source Pulse Oximeter Temp 96.3 F L Temp Source Tympanic Pulse Oximetry (%) 97 Oxygen Delivery Method Room Air Intake Visit Reasons: Cyst on ovary Intake Note: tcm Allergies benzoin Allergy (Intermediate, Verified 12/26/23 11:07) Rash povidone-iodine Allergy (Intermediate, Verified 12/26/23 11:07) Rash buspirone [From BuSpar] Adverse Reaction (Mild, Verified 12/26/23 11:07) anxiety, jittery steri strips Allergy (Mild, Uncoded 08/23/23 08:52) burning skin Medication List - Last Reconciled 12/26/23 by Ney Fermin MD acetylcysteine (NAC) 600 mg PO BID albuterol sulfate 90 mcg/actuation (Ventolin HFA) 2 puffs inhalation Q4-6H PRN 30 days bisacodyl (Dulcolax (bisacodyl)) 20 mg (4 x 5 mg) PO ONCE 1 day budesonide-formoterol 80-4.5 mcg/actuation (Symbicort) 1 inh inhalation BID 30 days buprenorphine-naloxone 2-0.5 mg (Suboxone) 1 film buccal DAILY clonidine HCl 0.1 mg PO BID escitalopram oxalate 20 mg PO DAILY pantoprazole 20 mg PO DAILY polyethylene glycol 3350 (Miralax) 238 grams PO ONCE terbinafine HCl 1% (Antifungal (terbinafine)) 1 appl topical BID 30 days terbinafine HCl 250 mg PO DAILY 30 days Tobacco use date assessed: 12/05/23 Dental Screening Dental Screen Date: 12/05/23 HPI Cyst on ovary HPI Details 48 y/o female presents today to f/u hosp [facility] discharge admit date 12/08/23, discharge date 12/10/23. Had presented for evaluation of L sided back pain accompanied by nausea and vomiting. Labs and UA unremarkable. US with ovarian cyst within septation and low flow. proof inspector did not feel small pelvic abscess likely source of pain. Had been admitted for intractable abd. pain. Pt notes abd pain eventually improved but she states they were unsure what had caused it. Pt notes they had seen bacteria in urine. TCM TCM Information Date of Discharge 12/10/23 Discharged From Other ([facility]) Interactive Contact Date (Reference documentation from this date) 12/26/23 HPI Comments History of Present Illness Details Documentation assistance for Ney Fermin MD, was provided by Joe Mariano, [employer] on 12/26/2023 at 11:54 AM EST. I, Dr. Fermin, have read, observed, and verified documentation. [facility] Medical History Dislocation of fifth toe, right, closed Cervical spondylosis Pneumothorax Cellulitis Pneumonia Tuberculosis Hepatitis Surgical History Hx of colonoscopy (~2013) S/P lumpectomy, left breast [place] teeth extracted H/O: hysterectomy Family History Mother Breast cancer Anxiety Depression Substance use disorder Father Mental health disorder Paternal Grandmother Breast cancer Social History (Updated 12/05/23 @ 09:28 by Maggie Araujo MA) Household Members: Family Both parents involved: No Caregiver staying overnight: No Housing: House Are you a primary manager of care to a significant other at home: No Do you presently have visiting nurse or other home services: No 75 years or older and lives alone: No Alcohol intake: former Patient Tobacco Use Status: Current everyday Tobacco user Tobacco use type: Cigarette Cigarette Packs Per Day: 10 e-Cigarette/Vaping Use: Never Used Substance Use Type: Club/Wireless Watcher Drugs, Crack/Cocaine, Hallucinogens, Heroin, IV Drugs, Marijuana, Opiates, Other, Painkillers and Prescription Drugs Special nick needs: Yes Special nick accommodation details: hinduism service: No Current occupational status: employed 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 Kingston Neff, Tyesha Silver, Roberto Tamayo and colleagues, with an educational yovany from [email or web address]. Review of Systems Const Denies chills, Denies fatigue, Denies fever(s), Denies headache(s) and Denies weakness ENT Denies dizziness and Denies headache(s) Card Denies dyspnea Resp Denies cough, Denies dyspnea, Denies wheezing and Denies other (shortness of breath) Musc Denies numbness and Denies tingling Neuro Denies dizziness, Denies headache(s), Denies numbness, Denies tingling and Denies weakness Psych Denies anxiety and Denies depression Endo Denies fatigue Aller/Immun Denies wheezing Physical exam (Primary Care) Vital Signs: Last Vital Signs Temp 96.3 F L 12/26/23 11:07 Pulse 105 H 12/26/23 11:07 Resp 12 12/26/23 11:07 BP 110/60 12/26/23 11:07 Pulse Ox 97 12/26/23 11:07 Oxygen Delivery Method Room Air 12/26/23 11:07 BMI result Body Mass Index 24.4 Tobacco/Smoking Status: Tobacco use Status Tobacco use date assessed 12/05/23 12/26/23 11:10 Patient Tobacco Use Status Current everyday Tobacco 12/26/23 11:10 Tobacco use type Cigarette 12/26/23 11:10 e-Cigarette/Vaping Use Never Used 12/26/23 11:10 Thrive Assessment: Date of Thrive Assessment Date Thrive assessed 12/05/23 12/26/23 11:10 Const General: well developed; No acute distress Nutritional Appearance: well nourished Orientation/consciousness: patient oriented x3 HENMT Head: Yes normocephalic and Yes atraumatic Eyes General: appearance normal, both eyes and all related structures Pupils: Equal, round and reactive pupils present EOM: EOMs intact bilaterally Resp Effort & Inspection: normal respiratory effort Neuro General: patient oriented x3 and gait normal Cranial nerves: Yes Equal, round and reactive pupils present Psych Affect: normal affect Assessment and Plan Assessment & Plan (1) Abdominal pain: Code(s): R10.9 - Unspecified abdominal pain Plan: This?has?resolved Uncertain?cause. Workup?included?CT?abdomen?pelvis?and?ultrasound. Ultrasound?did?show?a?complex?ovarian?cyst?but?this?was?rather?small?at?2.1?cm?a nd?no?evidence?torsion. Patient?is?on?Suboxone?and?may?have?issues?with ?constipation.??She?also?noted?some?urinary?symptoms?though?no?clear?evidence?of ?UTI. Will?recheck?urine?studies. Advised?patient?to?hydrate?well?and?avoid?constipation. (2) Complex ovarian cyst: Code(s): N83.299 - Other ovarian cyst, unspecified side Plan: Left?ovarian?cyst?with?septations, 2.1?cm?in?largest?dimension Recommended?follow-up?to?ensure?stability Referred?to?general production worker (3) Bacteria in urine: Code(s): R82.71 - Bacteriuria Plan: Some?bacteria?in?urine?and?patient?had?significant?abdominal?pain. Pain?has?resolved?but?patient?is?still?noting?some?urinary?symptoms Rechecking?urine?studies Orders: Orders UA and rflx microscopic Today R82.71 - Bacteriuria, Z00.00 - Encounter for general adult medical examination without abnormal findings Urine Culture Today R82.71 - Bacteriuria Referrals POINT OF CARE TECHNICIAN Referral N83.299 - Other ovarian cyst, unspecified side Coding Level of Care Code TCM Mod MDM <= 7 Days Diagnoses Abdominal pain R10.9 Complex ovarian cyst N83.299 Bacteria in urine R82.71
[2023-12-26 11:07] VITALS: BP 110/60; PULSE 105; RESP 12; TEMP 35.7; O2SAT 97; BMI 24.4
== END 2023-12-26 14:45 | disposition home or self-care (01) ==
PROVIDERS: PCP Family Medicine; Visit Provider Family Medicine
DX: R10.9 Unspecified abdominal pain (principal); N83.299 Other ovarian cyst, unspecified side; R82.71 Bacteriuria

== ENCOUNTER 2024-01-17 08:48 | Outpatient (REF) | payer OTHER, SELFPAY ==
[2024-01-17 11:42] LABS: Alanine Aminotransferase 13 U/L (0-31); Albumin Level 4.3 g/dL (3.5-5.0); Alkaline Phosphatase 81 U/L (39-117); Anion Gap 10 (12-20); Aspartate Amino Transferase 18 U/L (5-31); Bilirubin Total 0.7 mg/dL (0.0-1.0); Blood Urea Nitrogen 18 mg/dL (9-16); Calcium 9.6 mg/dL (8.4-10.2); Carbon Dioxide 23 mmol/L (22-29); Chloride 108 mmol/L (96-108); Cholesterol 209 mg/dL (<200); Estimated Glomerular Filt Rate > 60; Glucose Fasting 106 mg/dL (60-99); HDL Cholesterol 59 mg/dL (>40); LDL Cholesterol Calculated 140 mg/dL (<100); Potassium 4.2 mmol/L (3.3-5.1); Sodium 137 mmol/L (135-145); Total Protein 7.3 g/dL (6.5-8.0); Triglycerides 52 mg/dL (<150)
[2024-01-17 12:02] LABS: Vitamin D 25-OH Total 31.4 ng/mL (>30)
== END 2024-01-17 08:49 | disposition home or self-care (01) ==
LOC: HO.WFDLDS 08:48
PROVIDERS: Visit Provider Family Medicine
DX: Z00.00 Encounter for general adult medical examination without abnormal findings (principal); B35.1 Tinea unguium; E78.00 Pure hypercholesterolemia, unspecified; E55.9 Vitamin D deficiency, unspecified; R79.89 Other specified abnormal findings of blood chemistry
CPT/HCPCS: 36415; 80053; 80061; 82306

== ENCOUNTER 2024-01-23 15:31 | Outpatient (AMB) | payer OTHER, SELFPAY ==
--- NOTE | 2024-01-23 15:28 | A.OFFPC_ITS ---
Intake Visit Reasons: F/U LIVER ENZYMES VIA TELEMEDICINE Allergies benzoin Allergy (Intermediate, Verified 12/26/23 11:07) Rash povidone-iodine Allergy (Intermediate, Verified 12/26/23 11:07) Rash buspirone [From BuSpar] Adverse Reaction (Mild, Verified 12/26/23 11:07) anxiety, jittery steri strips Allergy (Mild, Uncoded 08/23/23 08:52) burning skin Tobacco use date assessed: 12/05/23 Dental Screening Dental Screen Date: 12/05/23 HPI F/U LIVER ENZYMES VIA TELEMEDICINE HPI Details 48 y/o female presents to f/u labs via t elemedicine. Labs drawn 01/17/24. Reviewed labs with pt. Elevated fasting glucose of 106. Liver enzymes are fine - AST 18 and ALT 13. Triglycerides 52. TC 209. LDL 140. HDL 59. Vitamin D 31.4. PFSH Medical History Dislocation of fifth toe, right, closed Cervical spondylosis Pneumothorax Cellulitis Pneumonia Tuberculosis Hepatitis Surgical History Hx of colonoscopy (~2013) S/P lumpectomy, left breast [place] teeth extracted H/O: hysterectomy Family History Mother Breast cancer Anxiety Depression Substance use disorder Father Mental health disorder Paternal Grandmother Breast cancer Social History (Updated 12/05/23 @ 09:28 by RENETTA Willis) Household Members: Family Both parents involved: No Caregiver staying overnight: No Housing: House Are you a primary healthcare project manager to a significant other at home: No Do you presently have visiting nurse or other home services: No 75 years or older and lives alone: No Alcohol intake: former Patient Tobacco Use Status: Current everyday Tobacco user Tobacco use type: Cigarette Cigarette Packs Per Day: 10 e-Cigarette/Vaping Use: Never Used Substance Use Type: Club/Information Technology Teacher Drugs, Crack/Cocaine, Hallucinogens, Heroin, IV Drugs, Marijuana, Opiates, Other, Painkillers and Prescription Drugs Special nick needs: Yes Special nick accommodation details: nondenominational service: No Current occupational status: employed 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 How many drinks containing alcohol do you have on a typical day when you are drinking?: 1 or 2 3. How often do you have six or more drinks on one occasion?: Never Total Score: 0 CHEMA-7 AMB Questionnaire CHEMA-7 Date CHEMA - 7 assessed: 12/05/23 Source: Developed by Drs. Kingston Neff, Tyesha Silver, Roberto Tamayo and colleagues, with an educational yovany from [employer]. Review of Systems Const Denies chills, Denies fatigue, Denies fever(s), Denies headache(s) and Denies weakness ENT Denies dizziness and Denies headache(s) Card Denies dyspnea Resp Denies cough, Denies dyspnea, Denies wheezing and Denies other (shortness of breath) Musc Denies numbness and Denies tingling Neuro Denies dizziness, Denies headache(s), Denies numbness, Denies tingling and Denies weakness Psych Denies anxiety and Denies depression Endo Denies fatigue Aller/Immun Denies wheezing Physical exam (Primary Care) Tobacco/Smoking Status: Tobacco use Status Tobacco use date assessed 12/05/23 01/23/24 15:31 Patient Tobacco Use Status Current everyday Tobacco 01/23/24 15:31 Tobacco use type Cigarette 01/23/24 15:31 e-Cigarette/Vaping Use Never Used 01/23/24 15:31 Thrive Assessment: Date of Thrive Assessment Date Thrive assessed 12/05/23 01/23/24 15:31 Telehealth Telehealth Telehealth Platform: Telephone Location of provider rendering services: practice address Location of patient: address on file Patient Identification confirmed using: Name, : Yes Telehealth method: voice only Patient verbally consented to treatment: Yes Patient verbally consented to billing insurance company: Yes Patient informed of any privacy concerns related to visit: Yes Minutes spent on Phone/Video with Pt.: 11 Coding Level of Care Code Tele Est Pt Level 2 (75801) Diagnoses Hypercholesterolemia E78.00 Elevated fasting glucose R73.01 Complex ovarian cyst N83.299 Assessment & Plan Assessment & Plan (1) Hypercholesterolemia: Code(s): E78.00 - Pure hypercholesterolemia, unspecified Category: Medical Plan: LDL?cholesterol?is?still?too?high?though?she?did?make?some?improvements. She?says?she?could?still?make?very?significant?improvements? to?her?diet?and?so?I?advised?she?try?to?do?so Will?recheck?in?about?3?months.??If?she?is?unable?to?make?significant?impact,?wi ll?discuss?medication (2) Elevated fasting glucose: Code(s): R73.01 - Impaired fasting glucose Category: Medical Plan: Mi ldly?elevated?fasting?blood?sugar?though?prior?check?showed?normal?fasting?blood ?sugar. Will?recheck?this?with?next?blood?draw?as?well?as?an?A1c (3) Complex ovarian cyst: Code(s): N83.299 - Other ovarian cyst, unspecified side Category: Medical Plan: Had?referred?patient?to?inpatient coder?at?[facility]?and?then?at?[facility] [place]. She?is?having?difficulty?getting?scheduled.??I?have?made?a?new?referral. I?have?also?advised?patient?to?check?with?her?insurance?to?see?where?she ?could?be?referred. Will?continue?to?follow-up?on Orders: Orders Comprehensive [place]. Panel Fast Today R73.01 - Impaired fasting glucose, Z00.00 - Encounter for general adult medical examination without abnormal findings Lipid Panel Today E78.00 - Pure hypercholesterolemia, unspecified, Z00.00 - Encounter for general adult medical examination without abnormal findings Hemoglobin A1c Today R73.01 - Impaired fasting glucose Vitamin D 25-OH Total Today E55.9 - Vitamin D deficiency, unspecified, R79.89 - Other specified abnormal findings of blood chemistry Referrals ENTRY DRIVER OPERATOR Referral N83.299 - Other ovarian cyst, unspecified side
== END 2024-01-23 17:05 ==
LOC: HO.HMCFM 15:31
PROVIDERS: PCP Family Medicine; Visit Provider Family Medicine
DX: E78.00 Pure hypercholesterolemia, unspecified (principal); R73.01 Impaired fasting glucose; N83.299 Other ovarian cyst, unspecified side

== ENCOUNTER → 2024-01-23 15:31 | Outpatient (BNVA) | payer OTHER, SELFPAY | PROVIDERS: PCP Family Medicine; Visit Provider Family Medicine ==

== ENCOUNTER 2024-01-29 09:00 | Outpatient (REF) | payer OTHER, SELFPAY ==
--- NOTE | ~2024-01-29 | MM_ITS ---
EXAMINATION: MM SCREENING DIGITAL BREAST TOMOSYNTHESIS, BILATERAL CLINICAL INFORMATION: Screening. Asymptomatic. COMPARISON: Mammography: Comparison is made with available priors TECHNIQUE: Digital breast mammography with tomosynthesis is performed in both the craniocaudal and mediolateral oblique views along with computer-aided detection (CAD). FINDINGS: The breasts are extremely dense, which lowers the sensitivity of mammography (ACR BI-RADS breast composition Category d). Postprocedural changes in the upper central left breast with distortion are stable. Marker clip in the left breast from previous needle core biopsy. Marker clip in the right breast from previous needle core biopsy. There are no significant masses, abnormal calcifications, or other abnormalities. MM/MM tomosynthesis screening BI IMPRESSION: No mammographic evidence of malignancy. ASSESSMENT: BI-RADS BI-RADS 2 - Benign Findings RECOMMENDATION: Routine annual mammography screening. 1 year F/U This examination should not preclude the clinical evaluation of a suspicious palpable abnormality. This patient's information was entered into a reminder system with a target due date for their next mammogram. Electronically signed by: Marietta Love DO 02/06/2024 10:46 AM [place]
== END 2024-01-29 09:01 | disposition home or self-care (01) ==
LOC: HO.MAMMO 09:00
PROVIDERS: PCP Family Medicine; Visit Provider Family Medicine
DX: Z12.31 Encounter for screening mammogram for malignant neoplasm of breast (principal)
CPT/HCPCS: 77063; 77067

== ENCOUNTER → 2024-01-29 09:00 | Outpatient (BNV) | payer OTHER, SELFPAY | PROVIDERS: PCP Family Medicine; Visit Provider Internal Medicine | DX: Z12.31 Encounter for screening mammogram for malignant neoplasm of breast (principal) | CPT/HCPCS: 77063; 77067 ==

== ENCOUNTER 2024-02-27 09:20 | Outpatient (REF) | payer OTHER, SELFPAY ==
[2024-02-27 11:47] LABS: Estimated Average Glucose 100 mg/dL; Hemoglobin A1C 118.5755 umol/L; Hemoglobin A1c % 5.1 % (<6.0); Total Hemoglobin (HGBA1C) 3728.0435 umol/L
[2024-02-27 12:09] LABS: Alanine Aminotransferase 19 U/L (0-31); Albumin Level 4.2 g/dL (3.5-5.0); Alkaline Phosphatase 83 U/L (39-117); Anion Gap 14 (12-20); Aspartate Amino Transferase 26 U/L (5-31); Bilirubin Total 0.6 mg/dL (0.0-1.0); Blood Urea Nitrogen 15 mg/dL (9-16); Calcium 9.6 mg/dL (8.4-10.2); Carbon Dioxide 23 mmol/L (22-29); Chloride 106 mmol/L (96-108); Cholesterol 211 mg/dL (<200); Estimated Glomerular Filt Rate > 60; Glucose Fasting 104 mg/dL (60-99); HDL Cholesterol 53 mg/dL (>40); LDL Cholesterol Calculated 144 mg/dL (<100); Potassium 4.3 mmol/L (3.3-5.1); Sodium 139 mmol/L (135-145); Triglycerides 73 mg/dL (<150)
[2024-02-27 12:10] LABS: Vitamin D 25-OH Total 19.9 ng/mL (>30)
== END 2024-02-27 09:21 | disposition home or self-care (01) ==
LOC: HO.WFDLDS 09:20
PROVIDERS: Visit Provider Family Medicine
DX: Z00.00 Encounter for general adult medical examination without abnormal findings (principal); R73.01 Impaired fasting glucose; E78.00 Pure hypercholesterolemia, unspecified; E55.9 Vitamin D deficiency, unspecified; R79.89 Other specified abnormal findings of blood chemistry
CPT/HCPCS: 36415; 80053; 80061; 82306; 83036

== ENCOUNTER 2024-03-05 08:48 | Outpatient (AMB) | payer OTHER, SELFPAY ==
--- NOTE | 2024-03-05 08:51 | MHC.PC.OV ---
Vital Signs 03/05/24 08:56 Height 5 ft 3 in Weight 140 lb BMI 24.8 BP 100/60 Blood Pressure Location Rt brachial Position Sitting Respiration 16 Pulse 101 H Pulse Source Pulse Oximeter Pulse Oximetry (%) 96 Oxygen Delivery Method Room Air Intake Visit Reasons: f/u hypercholesterolemia, low vitamin d Intake Note: f/u for lab review Allergies benzoin Allergy (Intermediate, Verified 03/05/24 08:53) Rash povidone-iodine Allergy (Intermediate, Verified 03/05/24 08:53) Rash buspirone [From BuSpar] Adverse Reaction (Mild, Verified 03/05/24 08:53) anxiety, jittery steri strips Allergy (Mild, Uncoded 08/23/23 08:52) burning skin Tobacco use date assessed: 12/05/23 Dental Screening Dental Screen Date: 12/05/23 HPI f/u hypercholesterolemia, low vitamin d HPI Details 48 y/o female presents to f/u hypercholesterolemia, low vitamin D. Labs drawn 02/27/24. Reviewed labs with pt. Elevated fasting gllucose of 104. A1c 5.1%. Triglycerides 73. TC 211. LDL 144. HDL 53. Vitamin D low at 19.9. PFSH Medical History Dislocation of fifth toe, right, closed Cervical spondylosis Pneumothorax Cellulitis Pneumonia Tuberculosis Hepatitis Surgical History Hx of colonoscopy (~2013) S/P lumpectomy, left breast [place] teeth extracted H/O: hysterectomy Family History Mother Breast cancer Anxiety Depression Substance use disorder Father Mental health disorder Paternal Grandmother Breast cancer Social History (Updated 12/05/23 @ 09:28 by RENETTA Willis) Household Members: Family Both parents involved: No Caregiver staying overnight: No Housing: House Are you a primary transitional care liaison to a significant other at home: No Do you presently have visiting nurse or other home services: No 75 years or older and lives alone: No Alcohol intake: former Patient Tobacco Use Status: Current everyday Tobacco user Tobacco use type: Cigarette Cigarette Packs Per Day: 10 e-Cigarette/Vaping Use: Never Used Substance Use Type: Club/Operations Support Coordinator Drugs, Crack/Cocaine, Hallucinogens, Heroin, IV Drugs, Marijuana, Opiates, Other, Painkillers and Prescription Drugs Special nick needs: Yes Special nick accommodation details: druze service: No Current occupational status: employed 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 1. Little interest or pleasure in doing things: more than half the days 2. Feeling down, depressed, or hopeless: several days 3. Trouble falling or staying asleep, or sleeping too much: several days 4. Feeling tired or having little energy: several days 5. Poor appetite or overeating: several days 6. Feeling bad about yourself - or that you are a failure or have let yourself or your family down: several days 7. Trouble concentrating on things, such as reading the newspaper or watching television: more than half the days 8. Moving or speaking so slowly that other people could have noticed. Or the opposite - being so fidgety or restless that you have been moving around a lot more than usual: several days 9. Thoughts that you would be better off or of hurting yourself in some way: not at all Total score: 10 Source: Developed by Drs. Kingston Neff, Tyesha Silver, Roberto Tamayo and colleagues, with an educational yovany from [employer]. Thrive Questionnaire Date Thrive assessed: 02/27/24 I am a: Patient What is your living situation today?: I have a steady place to live Within the past 12 months, did the food you bought not last and you didn't have the money to get more?: Never true Within the past 12 months, did you worry whether your food would run out before you got money to buy more?: Sometimes True Do you have trouble paying for medicines?: Yes Do you have trouble getting transportation to medical appointments?: No Do you have trouble paying your heating and electricity bill?: No Do you have trouble taking care of your child, family member or friend?: No Do you have trouble with day-to-day activities such as bathing, preparing meals, shopping, managing finances, etc.?: No Are you currently unemployed and looking for a job?: No Are you interested in more education?: No Please select the resources that you would like help with: None Currently or been in a relationship where the following occur: No concerns reported THRIVE Score: 1 AUDIT C Alcohol Use Questionnaire (AUDIT-C) 1. How often do you have a drink containing alcohol?: Never Total Score: 0 CHEMA-7 AMB Questionnaire CHEMA-7 Date CHEMA - 7 assessed: 12/05/23 Feeling nervous, anxious, or on edge: 2 = More than half the days Not being able to stop or control worryin = More than half the days Worrying too much about different things: 2 = More than half the days Trouble relaxin = More than half the days Being so restless that it is hard to sit still: 3 = Nearly every day Becoming easily annoyed or irritable: 1 = Several days Feeling afraid as if something awful might happen: 2 = More than half the days Total CHMEA-7 score (0-4 normal; 5-9 mild; 10-14 moderate; 15-21 severe): 14 Source: Developed by Drs. Kingston Neff, Tyesha Silver, Roberto Tamayo and colleagues, with an educational yovany from [employer]. Review of Systems Const Denies chills, Denies fatigue, Denies fever(s), Denies headache(s) and Denies weakness ENT Denies dizziness and Denies headache(s) Card Denies dyspnea Resp Denies cough, Denies dyspnea, Denies wheezing and Denies other (shortness of breath) Musc Denies numbness and Denies tingling Neuro Denies dizziness, Denies headache(s), Denies numbness, Denies tingling and Denies weakness Psych Denies anxiety and Denies depression Endo Denies fatigue Aller/Immun Denies wheezing Physical exam (Primary Care) Vital Signs: Last Vital Signs Pulse 101 H 03/05/24 08:56 Resp 16 03/05/24 08:56 BP 100/60 03/05/24 08:56 Pulse Ox 96 03/05/24 08:56 Oxygen Delivery Method Room Air 03/05/24 08:56 BMI result Body Mass Index 24.8 Tobacco/Smoking Status: Tobacco use Status Tobacco use date assessed 12/05/23 03/05/24 08:52 Patient Tobacco Use Status Current everyday Tobacco 03/05/24 08:52 Tobacco use type Cigarette 03/05/24 08:52 e-Cigarette/Vaping Use Never Used 03/05/24 08:52 PHQ-9: PHQ-9 Score PHQ-9: Total score 10 03/05/24 09:31 Thrive Assessment: Date of Thrive Assessment Date Thrive assessed 02/27/24 03/05/24 08:52 Currently or been in a relationship where the following occur: No concerns reported Const General: well developed; No acute distress Nutritional Appearance: well nourished Orientation/consciousness: patient oriented x3 HENMT Head: Yes normocephalic and Yes atraumatic Eyes General: appearance normal, both eyes and all related structures Pupils: Equal, round and reactive pupils present EOM: EOMs intact bilaterally Resp Effort & Inspection: normal respiratory effort Neuro General: patient oriented x3 and gait normal Cranial nerves: Yes Equal, round and reactive pupils present Psych Affect: normal affect Coding Level of Care Code Est Pt Level 4 (23666) Diagnoses Hypercholesterolemia E78.00 Low vitamin D level R79.89 Complex ovarian cyst N83.299 Elevated fasting glucose R73.01 Fungal infection of toenail B35.1 Assessment & Plan Assessment & Plan (1) Hypercholesterolemia: Code(s): E78.00 - Pure hypercholesterolemia, unspecified Category: Medical Plan: Lipids?are?again?to?high?despite?attempts?at?lifestyle?changes Start?atorvastatin Will?recheck?lipids?in?about?6?weeks (2) Low vitamin D level: Code(s): R79.89 - Other specified abnormal findings of blood chemistry Category: Medical Plan: Vitamin-D?level?is?low.??Advised?in?OTC?supplement (3) Complex ovarian cyst: Code(s): N83.299 - Other ovarian cyst, unspecified side Category: Medical Plan: Patient?has?followed?up?with?her?assistant city attorney (4) Elevated fasting glucose: Code(s): R73.01 - Impaired fasting glucose Category: Medical Plan: A1c?5.1%?is?at?upper?end?of?normal Encouraged?a?diet?lower?in?sugars?and?starches (5) Fungal infection of toenail: Code(s): B35.1 - Tinea unguium Category: Medical Plan: Check?liver?enzymes Orders: Orders Comprehensive [place]. Panel Fast Today B35.1 - Tinea unguium, Z00.00 - Encounter for general adult medical examination without abnormal findings Lipid Panel Today E78.00 - Pure hypercholesterolemia, unspecified, Z00.00 - Encounter for general adult medical examination without abnormal findings Medications: New atorvastatin 10 mg PO DAILY 90 days 90 tabs 3RF
[2024-03-05 08:56] VITALS: BP 100/60; PULSE 101; RESP 16; O2SAT 96; BMI 24.8
== END 2024-03-05 09:42 | disposition home or self-care (01) ==
PROVIDERS: PCP Family Medicine; Visit Provider Family Medicine
DX: E78.00 Pure hypercholesterolemia, unspecified (principal); R79.89 Other specified abnormal findings of blood chemistry; N83.299 Other ovarian cyst, unspecified side; R73.01 Impaired fasting glucose; B35.1 Tinea unguium

== ENCOUNTER → 2024-03-05 08:48 | Outpatient (BNVA) | payer OTHER, SELFPAY | PROVIDERS: PCP Family Medicine; Visit Provider Family Medicine | DX: E78.00 Pure hypercholesterolemia, unspecified (principal); R79.89 Other specified abnormal findings of blood chemistry; R73.01 Impaired fasting glucose; B35.1 Tinea unguium; N83.299 Other ovarian cyst, unspecified side | CPT/HCPCS: 96127; 99212 ==

== ENCOUNTER 2024-04-10 09:24 | Outpatient (REF) | payer OTHER, SELFPAY ==
--- OUTSIDE RECORDS SUMMARY | 2024-04-10 09:39 | XMS_ITS | Continuity of Care Document ---
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 [address] [place] [address], [facility], . tel:[phone] Referring Provider: Sin Mendiola , [address] [place] [address], [facility]. tel:[phone] [facility] [address] Services, [address], [place] [address], tel:[phone] [facility] No Information Marlena Vogt. [address] [place] [address], [facility], . tel:[phone] Referring Provider: Sin Mendiola [address] [place] [address], [facility]. tel:[phone] Family History Family Member Type Diagnosis Age [...]
[2024-04-10 11:56] LABS: Alanine Aminotransferase 18 U/L (0-31); Anion Gap 11 (12-20); Aspartate Amino Transferase 25 U/L (5-31); Bilirubin Total 0.8 mg/dL (0.0-1.0); Blood Urea Nitrogen 17 mg/dL (9-16); Calcium 9.6 mg/dL (8.4-10.2); Carbon Dioxide 22 mmol/L (22-29); Chloride 110 mmol/L (96-108); Cholesterol 175 mg/dL (<200); Estimated Glomerular Filt Rate > 60; Glucose Fasting 110 mg/dL (60-99); HDL Cholesterol 54 mg/dL (>40); LDL Cholesterol Calculated 112 mg/dL (<100); Potassium 4.1 mmol/L (3.3-5.1); Sodium 139 mmol/L (135-145); Total Protein 7.7 g/dL (6.5-8.0); Triglycerides 47 mg/dL (<150)
[2024-04-10 12:28] LABS: Alkaline Phosphatase 82 U/L (39-117)
== END 2024-04-10 09:25 | disposition home or self-care (01) ==
LOC: HO.WFDLDS 09:24
PROVIDERS: Visit Provider Family Medicine
DX: Z00.00 Encounter for general adult medical examination without abnormal findings (principal); B35.1 Tinea unguium; E78.00 Pure hypercholesterolemia, unspecified
CPT/HCPCS: 36415; 80053; 80061

== ENCOUNTER 2024-04-16 10:31 | Outpatient (AMB) | payer OTHER, SELFPAY ==
--- NOTE | 2024-04-16 10:33 | A.OFFPC_ITS ---
Vital Signs 04/16/24 10:41 Height 5 ft 3 in Weight 137 lb 4 oz BMI 24.3 BP 117/72 Blood Pressure Location Lt brachial Position Sitting Respiration 16 Pulse 96 Pulse Source Pulse Oximeter Temp 98.2 F Temp Source Oral Pulse Oximetry (%) 96 Oxygen Delivery Method Room Air Intake Visit Reasons: f/u liver enzymes, fungal treatment Intake Note: patient here for follow up on liver enzymes and fungal treatment Scale Model Maker Required: No Is last menstrual period known: No Post menopausal: No Patient : No Allergies benzoin Allergy (Intermediate, Verified 04/16/24 10:36) Rash povidone-iodine Allergy (Intermediate, Verified 04/16/24 10:36) Rash buspirone [From BuSpar] Adverse Reaction (Mild, Verified 04/16/24 10:36) anxiety, jittery steri strips Allergy (Mild, Uncoded 08/23/23 08:52) burning skin Medication List - Last Reconciled 04/16/24 by Ney Fermin MD acetylcysteine (NAC) 600 mg PO BID albuterol sulfate 90 mcg/actuation (Ventolin HFA) 2 puffs inhalation Q4-6H PRN 30 days atomoxetine 25 mg PO QAM atorvastatin 10 mg PO DAILY 90 days bisacodyl (Dulcolax (bisacodyl)) 20 mg (4 x 5 mg) PO ONCE 1 day budesonide-formoterol 80-4.5 mcg/actuation (Symbicort) 1 inh inhalation BID 30 days buprenorphine-naloxone 2-0.5 mg (Suboxone) 1 film buccal DAILY escitalopram oxalate 20 mg PO DAILY pantoprazole 20 mg PO DAILY polyethylene glycol 3350 (Miralax) 238 grams PO ONCE prazosin 1 mg PO BID terbinafine HCl 250 mg PO DAILY 30 days Tobacco use date assessed: 04/16/24 Dental Screening Dental Screen Date: 04/16/24 Did you have a dental visit in the last 12 months?: Yes Did you have a dental problem in the last 6 months where you did not have access to dental care?: No Was dental information given to patient?: Patient has dentist HPI f/u liver enzymes, fungal treatment HPI Details 48 y/o female presents to f/u terbinafin e treatment. Also f/u labs. Labs drawn 04/10/24. Reviewed labs with pt. Elevated fasting glucose of 110. Last A1c in January 5.1%. Liver enzymes are fine. Triglycerides 47. TC 175. LDL improved from 144 to 112. Had started her on artovastatin 10mg daily. HPI Comments History of Present Illness Details Documentation assistance for Ney Fermin MD, was provided by Joe Mariano,? Absorption Operator on 04/16/2024 at 10:56 AM EST. I, Dr. Fermin, have read, observed, and verified documentation. [facility] Medical History Dislocation of fifth toe, right, closed Cervical spondylosis Pneumothorax Cellulitis Pneumonia Tuberculosis Hepatitis Surgical History Hx of colonoscopy (~2013) S/P lumpectomy, left breast [place] teeth extracted H/O: hysterectomy Family History Mother Breast cancer Anxiety Depression Substance use disorder Father Mental health disorder Paternal Grandmother Breast cancer Social History (Updated 12/05/23 @ 09:28 by RENETTA Willis) Household Members: Family Both parents involved: No Caregiver staying overnight: No Housing: House Are you a primary emergency care tech to a significant other at home: No Do you presently have visiting nurse or other home services: No 75 years or older and lives alone: No Alcohol intake: former Patient Tobacco Use Status: Current everyday Tobacco user Tobacco use type: Cigarette Cigarette Packs Per Day: 10 e-Cigarette/Vaping Use: Never Used Substance Use Type: Club/Figure Model Drugs, Crack/Cocaine, Hallucinogens, Heroin, IV Drugs, Marijuana, Opiates, Other, Painkillers and Prescription Drugs Special nick needs: Yes Special nick accommodation details: tenriism service: No Current occupational status: employed 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 1. Little interest or pleasure in doing things: more than half the days 2. Feeling down, depressed, or hopeless: more than half the days 3. Trouble falling or staying asleep, or sleeping too much: more than half the days 4. Feeling tired or having little energy: more than half the days 5. Poor appetite or overeating: more than half the days 6. Feeling bad about yourself - or that you are a failure or have let yourself or your family down: several days 7. Trouble concentrating on things, such as reading the newspaper or watching television: several days 8. Moving or speaking so slowly that other people could have noticed. Or the opposite - being so fidgety or restless that you have been moving around a lot more than usual: not at all 9. Thoughts that you would be better off or of hurting yourself in some way: not at all Total score: 12 Depression Screening Interpretation: Positive Depression Screening Done: Yes 07010 - PHQ-9 Billing: Yes Source: Developed by Drs. Kingston Neff, Tyesha Silver, Roberto Tamayo and colleagues, with an educational yovany from [email or web address]. Thrive Questionnaire Date Thrive assessed: 04/16/24 I am a: Patient What is your living situation today?: I have a steady place to live Within the past 12 months, did the food you bought not last and you didn't have the money to get more?: Never true Within the past 12 months, did you worry whether your food would run out before you got money to buy more?: Never true Do you have trouble paying for medicines?: Yes Do you have trouble getting transportation to medical appointments?: No Do you have trouble paying your heating and electricity bill?: No Do you have trouble taking care of your child, family member or friend?: No Do you have trouble with day-to-day activities such as bathing, preparing meals, shopping, managing finances, etc.?: No Are you currently unemployed and looking for a job?: No Are you interested in more education?: Yes Please select the resources that you would like help with: Paying for medicine Currently or been in a relationship where the following occur: I choose not to answer THRIVE Score: 0 AUDIT C Alcohol Use Questionnaire (AUDIT-C) 1. How often do you have a drink containing alcohol?: Never 3. How often do you have six or more drinks on one occasion?: Never Total Score: 0 Score Reviewed/Action Taken: Yes CHEMA-7 AMB Questionnaire CHEMA-7 Date CHEMA - 7 assessed: 04/16/24 Feeling nervous, anxious, or on edge: 3 = Nearly every day Not being able to stop or control worryin = More than half the days Worrying too much about different things: 2 = More than half the days Trouble relaxin = More than half the days Being so restless that it is hard to sit still: 2 = More than half the days Becoming easily annoyed or irritable: 1 = Several days Feeling afraid as if something awful might happen: 2 = More than half the days Total CHEMA-7 score (0-4 normal; 5-9 mild; 10-14 moderate; 15-21 severe): 14 Source: Developed by Drs. Kingston Neff, Tyesha Silver, Roberto Tamayo and colleagues, with an educational yovany from [email or web address]. CHEMA-7 Assessment Billing CHEMA-7 Assessment Tool: CHEMA-7 Assessment 11788 ACT Questionnaire In the past 4 weeks, how much of the time did your asthma keep you from getting as much done at work, school or at home?: None of the time During the past 4 weeks, how often have you had shortness of breath?: 1-2 times a week During the past 4 weeks, how often did your asthma symptoms wake you up at night or earlier than usual in the morning?: Once a week During the past 4 weeks, how often have you had to use your rescue inhaler or nebulizer medication?: 2-3 times a week How would you rate your asthma control during the past 4 weeks?: Somewhat controlled Score: 18 Review of Systems Const Denies chills, Denies fatigue, Denies fever(s), Denies headache(s) and Denies weakness ENT Denies dizziness and Denies headache(s) Card Denies dyspnea Resp Denies cough, Denies dyspnea, Denies wheezing and Denies other (shortness of breath) Musc Denies numbness and Denies tingling Neuro Denies dizziness, Denies headache(s), Denies numbness, Denies tingling and Denies weakness Psych Denies anxiety and Denies depression Endo Denies fatigue Aller/Immun Denies wheezing Physical exam (Primary Care) Tobacco/Smoking Status: Tobacco use Status Tobacco use date assessed 12/05/23 04/16/24 10:35 Patient Tobacco Use Status Current everyday Tobacco 04/16/24 10:35 Tobacco use type Cigarette 04/16/24 10:35 e-Cigarette/Vaping Use Never Used 04/16/24 10:35 PHQ-9: PHQ-9 Score PHQ-9: Total score 12 04/16/24 10:35 Depression Screening Interpretation: Positive Thrive Assessment: Date of Thrive Assessment Date Thrive assessed 04/10/24 04/16/24 10:35 Currently or been in a relationship where the following occur: I choose not to answer Const General: well developed; No acute distress Nutritional Appearance: well nourished Orientation/consciousness: patient oriented x3 HENMT Head: Yes normocephalic and Yes atraumatic Eyes General: appearance normal, both eyes and all related structures Pupils: Equal, round and reactive pupils present EOM: EOMs intact bilaterally Resp Other: Some wheezing Effort & Inspection: normal respiratory effort Auscultation: clear to auscultation bilaterally Cardio Rate: regular rate Rhythm: regular rhythm Heart sounds: S1 normal heart sound present, S2 normal heart sound present, no gallops, no murmurs and no rubs Neuro General: patient oriented x3 and gait normal Cranial nerves: Yes Equal, round and reactive pupils present Psych Affect: normal affect Coding Level of Care Code Est Pt Level 4 (10739) Diagnoses Hypercholesterolemia E78.00 Fungal infection of toenail B35.1 Low vitamin D level R79.89 Depression with anxiety F41.8 Asthma J45.909 Additional Codes PHQ-9 - 69436 - PHQ-9 Billing: Yes ([id number]) CHEMA-7 Assessment Billing - CHEMA-7 Assessment Tool: CHEMA-7 Assessment 75044 ([id number]) Assessment & Plan Assessment & Plan (1) Hypercholesterolemia: Code(s): E78.00 - Pure hypercholesterolemia, unspecified Category: Medical Plan: Had?started?patient?on?atorvastatin?10?mg?daily?at?last?visit. LDL?cholesterol?is?significantly?improved?though?still?slightly?above?goal?of?le ss?than?100 Will?continue?current?medication?and?dose?but?a ?encouraged?her?to?work?at?a?diet?lower?in?saturated?fats?and?cholesterol Will?recheck?with?next?lab?draw (2) Fungal infection of toenail: Code(s): B35.1 - Tinea unguium Category: Medical Plan: Liver?enzymes?have?remained?low?in?stable on?oral?terbinafine She?notes?improvement?in?fungal?infection Continue?current?medication?and?interventions?discussed?at?last?visit. Will?continue?to?monitor (3) Low vitamin D level: Code(s): R79.89 - Other specified abnormal findings of blood chemistry Category: Medical Plan: Had?advise?an?oral?supplement?at?last?visit Will?recheck?vitamin-D?with?next?lab?draw (4) Depression with anxiety: Code(s): F41.8 - Other specified anxiety disorders Category: Medical Plan: She?is?on?escitalopram?and?has?been?recently?started?on?atomoxetine She?feels?these?medications?are?helping Follow-up?with?your?psych?med?provider (5) Asthma: Code(s): J45.909 - Unspecified asthma, uncomplicated Category: Medical Plan: Mild?wheezing?on?auscultation I?recommended?she?use?her?albuterol?inhaler?frequently Orders: Orders Comprehensive [place]. Panel Fast Today B35.1 - Tinea unguium, Z00.00 - Encounter for general adult medical examination without abnormal findings Lipid Panel Today E78.5 - Hyperlipidemia, unspecified, Z00.00 - Encounter for general adult medical examination without abnormal findings Vitamin D 25-OH Total Today E55.9 - Vitamin D deficiency, unspecified, R79.89 - Other specified abnormal findings of blood chemistry Medications: Refilled atorvastatin 10 mg PO DAILY 90 days 90 tabs 3RF albuterol sulfate 90 mcg/actuation (Ventolin HFA) 2 puffs inhalation Q4-6H 30 days PRN 8.5 grams 4RF shortness of breath or wheezing
[2024-04-16 10:41] VITALS: BP 117/72; PULSE 96; RESP 16; TEMP 36.8; O2SAT 96; BMI 24.3
--- OUTSIDE RECORDS SUMMARY | 2024-04-16 12:06 | XMS_ITS | Continuity of Care Document ---
Author Organization [address] [facility] Address [address] [place] [address] Phone Care Team Providers Care Director Of Cardiac Cath Lab Name Role Phone Sin Mendiola MD Unavailable Unavailabl e Procedures Procedure Date HOSPITAL DISCHARGE DAY INITIAL HOSPITAL CARE Advance Directives Directive Yes / No Effective Date File Name No Information Encounters Encounter Description Practice Location Reason(s) For Visit Diagnoses Date Provider Providers Copied on Encounter HOSPITAL DISCHARGE DAY [id number] [facility], [address], [place], [place], [facility], tel:[phone] [facility] No Information Marlena Vogt. [address] [place] [address], [facility], . tel:[phone] Referring Provider: Sin Mendiola , [address] [place] [address], [facility]. tel:[phone] [facility] [address] Services, [address], [place] [address], tel:[phone] [facility] No Information Marlena Vogt. [address] [place] [address], [facility], . tel:[phone] Referring Provider: Sin Mendiola [address] [place] [address], [facility]. tel:[phone] Family History Family Member Type Diagnosis Age [...]
== END 2024-04-16 10:59 | disposition home or self-care (01) ==
PROVIDERS: PCP Family Medicine; Visit Provider Family Medicine
DX: E78.00 Pure hypercholesterolemia, unspecified (principal); B35.1 Tinea unguium; R79.89 Other specified abnormal findings of blood chemistry; F41.8 Other specified anxiety disorders; J45.909 Unspecified asthma, uncomplicated

== ENCOUNTER → 2024-04-16 10:31 | Outpatient (BNVA) | payer OTHER, SELFPAY | PROVIDERS: PCP Family Medicine; Visit Provider Family Medicine | DX: E78.00 Pure hypercholesterolemia, unspecified (principal); B35.1 Tinea unguium; R79.89 Other specified abnormal findings of blood chemistry; F41.8 Other specified anxiety disorders; J45.909 Unspecified asthma, uncomplicated | CPT/HCPCS: 96127; 99212 ==

== ENCOUNTER 2024-06-04 06:30 | Day surgery (SDC) | payer OTHER, SELFPAY ==
--- OUTSIDE RECORDS SUMMARY | 2024-03-14 07:03 | XMS_ITS | Continuity of Care Document ---
Author Organization [address] [facility] Address [address] [place] [address] Phone Care Team Providers Care Extrusion Operator Name Role Phone Sin Mendiola MD Unavailable Unavailabl e Procedures Procedure Date HOSPITAL DISCHARGE DAY [facility]ITIAL HOSPITAL CARE Advance Directives Directive Yes / No Effective Date File Name No Information Encounters Encounter Description Practice Location Reason(s) For Visit Diagnoses Date Provider Providers Copied on Encounter HOSPITAL DISCHARGE DAY [id number] [facility], [address], [place], [place], [facility], tel:[phone] [facility] No Information Marlena Vogt. [address] [place] [address], [facility], . tel:[phone] Referring Provider: Sin Mendiola , [address] [place] [address], [facility]. tel:[phone] [facility] [address] Services, [address], [place] [address], tel:[phone] [facility] No Information Marlena Vogt. [address] [place] [address], [facility], . tel:[phone] Referring Provider: Sin Mendiola [address] [place] [address], [facility]. tel:[phone] Family History Family Member Type Diagnosis Age At Onset No Information Payers Payer name Insurance type Covered constitution party ID Authoriza tion(s) No Information Social History [...]
[2024-05-30 16:28] VITALS: BMI 24.3
--- NOTE | 2024-06-03 10:36 | HO.ANESPROP2 ---
HPI - Anesthesia Eval Consult details Narrative: 48yo F for Upper Endoscopy and Colonoscopy Suboxone daily TB in PMHx - ? previous treatment PMFSH Active Problems Active Problems: All Active Problems Hyperlipidemia (Acute) Elevated fasting glucose (Acute) Bacteria in urine (Acute) Complex ovarian cyst (Acute) Abdominal pain (Acute) Perimenopausal symptoms (Acute) Low vitamin D level (Acute) Hypercholesterolemia (Acute) Breast cancer screening by mammogram (Acute) Screening for cervical cancer (Acute) Adult general medical exam (Acute) Dislocation of fifth toe, right, closed (Acute) Cervical spondylosis (Acute) Myofascial pain (Acute) Smoker (Acute) Asthma (Acute) History of substance abuse (Acute) Screening for colon cancer (Acute) Carpal tunnel syndrome (Acute) Fungal infection of toenail (Acute) Laboratory exam ordered as part of routine general medical examination (Acute) Depression with anxiety (Acute) Right foot pain (Acute) Cervicalgia (Acute) Abnormal bowel movement (Acute) Past Medical History Medical History Dislocation of fifth toe, right, closed Cervical spondylosis Pneumothorax Cellulitis Pneumonia Tuberculosis Hepatitis Family History Family History Mother Breast cancer Anxiety Depression Substance use disorder Father Mental health disorder Paternal Grandmother Breast cancer Surgical History Surgical History Hx of colonoscopy (~2013) S/P lumpectomy, left breast [place] teeth extracted H/O: hysterectomy Social History Social History (Updated 12/05/23 @ 09:28 by RENETTA Willis) Household Members: Family Both parents involved: No Caregiver staying overnight: No Housing: House Are you a primary customer care specialist to a significant other at home: No Do you presently have visiting nurse or other home services: No 75 years or older and lives alone: No Alcohol intake: former Patient Tobacco Use Status: Current everyday Tobacco user Tobacco use type: Cigarette Cigarette Packs Per Day: 10 e-Cigarette/Vaping Use: Never Used Substance Use Type: Club/Environmental Control Administrator Drugs, Crack/Cocaine, Hallucinogens, Heroin, IV Drugs, Marijuana, Opiates, Other, Painkillers and Prescription Drugs Special nick needs: Yes Special nick accommodation details: [email or web address] service: No Current occupational status: employed 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 Cognitive needs: No Hearing needs: No Vision needs: Yes (Patient wears glasses) Meds Allergies Allergy/AdvReac Type Severity Reaction Status Date / Time benzoin Allergy Intermediate Rash Verified 04/16/24 10:36 povidone-iodine Allergy Intermediate Rash Verified 04/16/24 10:36 buspirone [From BuSpar] AdvReac Mild anxiety, Verified 04/16/24 10:36 jittery steri strips Allergy Mild burning Uncoded 08/23/23 08:52 skin Home Medications ?Medication ?Instructions ?Recorded ?Confirmed ?Last Taken ?Type buprenorphine 2 mg-naloxone 0.5 mg 1 film buccal DAILY 07/12/23 04/16/24 Unknown History sublingual film (Suboxone) escitalopram oxalate 20 mg tablet 20 mg PO DAILY 07/12/23 04/16/24 Unknown History acetylcysteine 600 mg capsule (NAC) 600 mg PO BID 12/05/23 04/16/24 Unknown History prazosin 1 mg capsule 1 mg PO BID 03/05/24 04/16/24 Unknown History atomoxetine 25 mg capsule 25 mg PO QAM 04/16/24 04/16/24 Unknown History Exam Height,Weight and Vital Signs: Height 5 ft 3 in Weight 62.256 kg Assessment and Plan Assessment Anesthesia Assessment: Chart Reviewed
[2024-06-04 07:20] VITALS: BP 121/73; PULSE 101; RESP 15; TEMP 36.9; O2SAT 97; BMI 22.9
[2024-06-04] MEDS: Lactated Ringers 1,000 ML 100 ML IVCONT (07:20)
--- NOTE | 2024-06-04 07:32 | P.CONAN_ITS ---
[facility] Active Problems Active Problems: All Active Problems Hyperlipidemia (Acute) Elevated fasting glucose (Acute) Bacteria in urine (Acute) Complex ovarian cyst (Acute) Abdominal pain (Acute) Perimenopausal symptoms (Acute) Low vitamin D level (Acute) Hypercholesterolemia (Acute) Breast cancer screening by mammogram (Acute) Screening for cervical cancer (Acute) Adult general medical exam (Acute) Myofascial pain (Acute) Smoker (Acute) Asthma (Acute) History of substance abuse (Acute) Screening for colon cancer (Acute) Carpal tunnel syndrome (Acute) Fungal infection of toenail (Acute) Laboratory exam ordered as part of routine general medical examination (Acute) Depression with anxiety (Acute) Right foot pain (Acute) Cervicalgia (Acute) Abnormal bowel movement (Acute) Dislocation of fifth toe, right, closed (Acute) Cervical spondylosis (Acute) Past Medical History Medical History Asthma Dislocation of fifth toe, right, closed Cervical spondylosis Pneumothorax Cellulitis Pneumonia Tuberculosis Hepatitis Functional capacity: independent ambulation Patient : No Family History Family History Mother Breast cancer Anxiety Depression Substance use disorder Father Mental health disorder Paternal Grandmother Breast cancer Surgical History Surgical History Hx of colonoscopy (~2013) S/P lumpectomy, left breast [place] teeth extracted H/O: hysterectomy History of Problems with Anesthesia: No Social History Social History Household Members: Family Housing: House Are you a primary manager primary care to a significant other at home: No Do you presently have visiting nurse or other home services: No Alcohol intake: former Patient Tobacco Use Status: Current everyday Tobacco user Tobacco use type: Cigarette Cigarette Packs Per Day: 10 e-Cigarette/Vaping Use: Never Used Substance Use Type: Club/Hot Strip Mill Supervisor Drugs, Crack/Cocaine, Hallucinogens, Heroin, IV Drugs, Marijuana, Opiates, Other, Painkillers and Prescription Drugs Special nick needs: Yes Special nick accommodation details: taoist Advance Directives: No Advance Directives Information Provided: Yes service: No Current occupational status: employed 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 Cognitive needs: No Hearing needs: No Vision needs: Yes (Patient wears glasses) Meds Allergies Allergy/AdvReac Type Severity Reaction Status Date / Time benzoin Allergy Intermediate Rash Verified 06/04/24 07:12 povidone-iodine Allergy Intermediate Rash Verified 06/04/24 07:12 buspirone [From BuSpar] AdvReac Mild anxiety, Verified 06/04/24 07:12 jittery steri strips Allergy Mild burning Uncoded 08/23/23 08:52 skin Active Medications: Current Medications Lactated Ringer's (Lr) 1,000 mls @ 100 mls/hr IVCONT .Q10H ZACH Home Medications ?Medication ?Instructions ?Recorded ?Confirmed ?Last Taken ?Type buprenorphine 2 mg-naloxone 0.5 mg 1 film buccal DAILY 07/12/23 04/16/24 Unknown History sublingual film (Suboxone) escitalopram oxalate 20 mg tablet 20 mg PO DAILY 07/12/23 04/16/24 Unknown History (Lexapro) acetylcysteine 600 mg capsule (NAC) 600 mg PO BID 12/05/23 04/16/24 Unknown History prazosin 1 mg capsule 1 mg PO BID 03/05/24 04/16/24 Unknown History atomoxetine 25 mg capsule 25 mg PO QAM 04/16/24 04/16/24 Unknown History Exam Height,Weight and Vital Signs: Height 5 ft 3 in Weight 62.256 kg Airway Mallampati Class: II TM Dist: >3cm Neck ROM: Full Heart: RRR Lungs: CTA Assessment and Plan Assessment Anesthesia Assessment: Anesthesia Plan Discussed, Smoking Cess. Discussed and Chart Reviewed Final Anesthetic Review History of Problems with Anesthesia: No NPO: Yes ASA Class: III Final Preanesthetic Review: Meds/Allgs Chart Reviewed, Consent Obtained/Reviewed and Anes Risks/Benef Reviewed Patient Risk: Low Procedure Risk: Low Anesthetic Plan Anesthetic Plan: MAC: Disposition: Standard PACU
--- NOTE | 2024-06-04 07:49 | P.HPSUR_ITS ---
Pre-Procedural Eval Section A - 24 Hr Update-Section A only Date of Service: 06/04/24 Section B - Complete if H&P > 30 days Chief Complaint: GERD, change in bowel habits Details of Present Illness: Dislocation of fifth toe, right, closed Cervical spondylosis Pneumothorax Cellulitis Pneumonia Tuberculosis Hepatitis Surgical History Hx of colonoscopy (~2013) S/P lumpectomy, left breast [place] teeth extracted H/O: hysterectomy Present Medications: see Short Stay Collaborative assessment Allergies: Allergies Allergy/AdvReac Type Severity Reaction Status Date / Time benzoin Allergy Intermediate Rash Verified 06/04/24 07:12 povidone-iodine Allergy Intermediate Rash Verified 06/04/24 07:12 buspirone [From BuSpar] AdvReac Mild anxiety, Verified 06/04/24 07:12 jittery steri strips Allergy Mild burning Uncoded 08/23/23 08:52 skin Review of Systems Review of Systems Comment: Ten point ROS negative Exam Exam Comment: Gen appear: No acute distress HEENT: no icterus Chest: No overt resp distress Abd: soft, nontender, nondistended Psych: Stable affect, answering questions appropriately Neuro: A/Ox3 noted to move all extremities spontaneously Ext: no peripheral edema Plan Diagnosis/Plan: Unchanged I have reviewed the history and physical and performed a pertinent physical examination on my patient. No changes have occurred unless specified. Time Spent With Patient Time: Total time managing care of this patient today ____ minutes.
--- NOTE | 2024-06-04 08:33 | P.OPN-COLO_ITS ---
Colonoscopy Operative Note Operative Note Date of Service: 06/04/24 Narrative: Procedure: Upper endoscopy and colonoscopy Indication: Abd pain, change in bowel habits Endoscopist: Shiloh Singre MD Anesthesia Provider: Dr Jenny Steele Anesthesia type: MAC Instrument: [id number]-H190 and [id number]-[id number] EGD Procedure:?? The procedure, indications, preparation and potential complications were reviewed with the patient, who indicated understanding and gave written informed consent to proceed. The endoscope was introduced through the mouth, and advanced to the 2nd part of the duodenum. The mucosa was carefully examined on slow withdrawal of the endoscope. The patient tolerated the procedure well. There were no immediate complications.? EGD Findings:? * Esophagus:? Normal esophageal mucosa was noted. The Z-line was at 39 cm. Cold forceps biopsies were taken from middle and lower esophagus to rule out eosinophilic esophagitis. * Stomach:? Normal gastric mucosa. Retroflexion was performed in the cardia. Random cold forceps biopsies were taken from the stomach. * Duodenum:? Patchy loss of vili with petechiae noted in the sweep. Remaining duodenal mucosa was normak. Cold forceps biopsies were taken to rule out celiac sprue. Colonoscopy Procedure:? The patient was then turned for the colonoscopy. A digital rectal exam was performed which was normal.? A distal attachment cap was affixed to the tip of the scope and the colonoscope was then inserted through the anus and advanced through the colon and advanced to the cecum at 70 cm and terminal ileum.? Appendiceal orifice and ileocecal valve were identified. Mucosa was carefully examined under high definition white light as the instrument was slowly withdrawn in a retrograde panoramic fashion. Retroflexion was performed in ascending colon and rectum. The procedure was not difficult. The quality of the prep was BBPS: 3+2+2 = adequate Withdrawal time 6 minutes Limitations: No limitations Findings: Mucosa: Normal colon and terminal ileum mucosa. Protruding lesions: * 1 sessile polyp of size 6 mm in transverse colon. Cold snare polypectomy was performed. The polyp was completely removed and retrieved. * Medium internal hemorrhoids without stigmata of recent bleeding. Impression: 1. Normal esophagus (biopsy) 2. Normal stomach (biopsy) 3. Duodenitis (biopsy) 4. Normal colon and terminal ileum mucosa (biopsy) 5. 1 polyp removed 6. Internal hemorrhoids Recommendations:?? * Follow-up path results * Avoid NSAIDs * H Pylori treatment if biopsies + * Repeat colonoscopy for CRC screening in 7-10 years.
[2024-06-04 08:37] VITALS: BP 117/78; PULSE 75; RESP 16; TEMP 36.1; O2SAT 98
[2024-06-04 08:52] VITALS: BP 124/88; PULSE 87; RESP 16; O2SAT 98
--- NOTE | 2024-06-04 14:22 | HO.POSTANES ---
Post Anesthesia Evaluation Post Anesthesia Evaluation Date of Service: 06/04/24 Vital Signs: Vital Signs Temp Pulse Resp BP Pulse Ox O2 Del Method 06/04/24 08:52 87 16 124/88 98 Room Air 06/04/24 08:37 97 F 75 16 117/78 98 Room Air 06/04/24 07:20 98.4 F 101 H 15 121/73 97 Room Air Anesthesia: Monitored Mental Status: Awake Pain Control: Satisfactory Nausea/Vomiting: None Hydration: Adequate Anesthesia-Related Issues: No Anes. Related Issues
== END 2024-06-04 09:19 | disposition home or self-care (01) ==
PROVIDERS: PCP Family Medicine; Visit Provider Internal Medicine
PROC: (CPT 45385; principal; 2024-06-04 07:30)
DX: R19.4 Change in bowel habit (principal); D12.3 Benign neoplasm of transverse colon; K64.8 Other hemorrhoids; R10.13 Epigastric pain; K21.9 Gastro-esophageal reflux disease without esophagitis; K29.80 Duodenitis without bleeding; J45.909 Unspecified asthma, uncomplicated; E78.00 Pure hypercholesterolemia, unspecified; F41.8 Other specified anxiety disorders; F11.20 Opioid dependence, uncomplicated; Z79.899 Other long term (current) drug therapy; Z88.8 Allergy status to other drugs, medicaments and biological substances; F19.11 Other psychoactive substance abuse, in remission; F17.210 Nicotine dependence, cigarettes, uncomplicated; Z98.890 Other specified postprocedural states
CPT/HCPCS: 45385; 43239; 88305; 88313; 88342; J2003; J2704

== ENCOUNTER → 2024-06-04 06:30 | Outpatient (BNV) | payer OTHER, SELFPAY | PROVIDERS: PCP Family Medicine; Visit Provider Internal Medicine | DX: Z12.11 Encounter for screening for malignant neoplasm of colon (principal); R19.4 Change in bowel habit; D12.3 Benign neoplasm of transverse colon; K64.8 Other hemorrhoids; K21.9 Gastro-esophageal reflux disease without esophagitis; K29.80 Duodenitis without bleeding | CPT/HCPCS: 43239; 45385 ==

== ENCOUNTER 2024-07-01 13:39 | Outpatient (AMB) | payer OTHER, SELFPAY ==
--- NOTE | 2024-07-01 13:41 | A.OFFPC_ITS ---
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 Is last menstrual period known: No Post menopausal: No Patient : No Allergies benzoin Allergy (Intermediate, Verified 07/01/24 13:45) Rash povidone-iodine Allergy (Intermediate, Verified 07/01/24 13:45) Rash buspirone [From BuSpar] Adverse Reaction (Mild, Verified 07/01/24 13:45) anxiety, jittery steri strips Allergy (Mild, Uncoded 08/23/23 08:52) burning skin Tobacco use date assessed: 07/01/24 Dental Screening Dental Screen Date: 07/01/24 Did you have a dental visit in the last 12 months?: Yes Did you have a dental problem in the last 6 months where you did not have access to dental care?: No Was dental information given to patient?: Patient has dentist HPI HPI Comments History of Present Illness Details 48-year-old female presents with complai nts of a possible spider bite to her right index finger. She noticed 3 small bumps to the lateral aspect of t he right index finger 4 days ago. She denies itching or pain. A day prior, she was doing house cleaning including cobweb. She notes history of spider bite with hospitalization a few years ago. [facility] Medical History (Updated 07/01/24 @ 14:44 by Catracho Leon CNP) Anxiety Depression OCD (obsessive compulsive disorder) ADHD Asthma Dislocation of fifth toe, right, closed Cervical spondylosis Pneumothorax Cellulitis Pneumonia Tuberculosis Hepatitis Surgical History Hx of colonoscopy (~2013) S/P lumpectomy, left breast [place] teeth extracted H/O: hysterectomy Family History Mother Breast cancer Anxiety Depression Substance use disorder Father Mental health disorder Paternal Grandmother Breast cancer Social History Household Members: Family Both parents involved: No Caregiver staying overnight: No Housing: House Are you a primary care transitions manager to a significant other at home: No Do you presently have visiting nurse or other home services: No 75 years or older and lives alone: No Alcohol intake: former Patient Tobacco Use Status: Current everyday Tobacco user Tobacco use type: Cigarette Cigarette Packs Per Day: 10 Cigarettes Per Day: 10 e-Cigarette/Vaping Use: Never Used Second Hand Smoke Exposure: Yes Substance Use Type: Club/Cad Draftsman Drugs, Crack/Cocaine, Hallucinogens, Heroin, IV Drugs, Marijuana, Opiates, Other, Painkillers and Prescription Drugs Special nick needs: Yes Special nick accommodation details: orthodoxy Patient : No service: No Current occupational status: employed 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 Cognitive needs: No Hearing needs: No Vision needs: Yes (Patient wears glasses) Questionnaire Thrive Questionnaire Date Thrive assessed: 04/10/24 I am a: Patient What is your living situation today?: I have a steady place to live Within the past 12 months, did the food you bought not last and you didn't have the money to get more?: Never true Within the past 12 months, did you worry whether your food would run out before you got money to buy more?: Never true Do you have trouble paying for medicines?: Yes Do you have trouble getting transportation to medical appointments?: No Do you have trouble paying your heating and electricity bill?: No Do you have trouble taking care of your child, family member or friend?: No Do you have trouble with day-to-day activities such as bathing, preparing meals, shopping, managing finances, etc.?: No Are you currently unemployed and looking for a job?: No Are you interested in more education?: Yes Please select the resources that you would like help with: Paying for medicine Currently or been in a relationship where the following occur: I choose not to answer THRIVE Score: 0 CHEMA-7 AMB Questionnaire CHEMA-7 Date CHEMA - 7 assessed: 04/16/24 Source: Developed by Drs. Kingston Neff, Tyesha Silver, Roberto Tamayo and colleagues, with an educational yovany from [employer]. Review of Systems Const Details: Const Denies chills, Denies fatigue, Denies fever(s), Denies headache(s) and Denies weakness ENT Denies dizziness and Denies headache(s) Card Denies chest pain, Denies lightheadedness, Denies dyspnea and Denies other (Palpitations) Resp Denies cough, Denies dyspnea, Denies wheezing and Denies other ( shortness of breath) GI Denies abdominal pain, Denies melena, Denies hematochezia, Denies change in bowel habits, Denies dyspepsia and Denies nausea Denies hematuria and Denies dysuria Musc Denies abnormal gait, Denies myalgias, Denies arthralgias, Denies numbness and Denies tingling Skin/Breast Reports as per HPI Neuro Denies abnormal gait, Denies dizziness, Denies headache(s), Denies memory loss, Denies numbness, Denies Sensory deficit (Neuro), Denies tingling and Denies weakness Psych Denies anxiety, Denies depression, Denies memory loss Endo Denies cold intolerance, Denies fatigue, Denies heat intolerance, Denies estephanie ydipsia and Denies polyuria Aller/Immun Denies wheezing Physical exam (Primary Care) Vital Signs: Last Vital Signs Temp 98.3 F 07/01/24 13:46 Pulse 105 H 07/01/24 13:46 Resp 16 07/01/24 13:46 BP 116/76 07/01/24 13:46 Pulse Ox 97 07/01/24 13:46 Oxygen Delivery Method Room Air 07/01/24 13:46 BMI result Body Mass Index 42.0 Tobacco/Smoking Status: Tobacco use Status Tobacco use date assessed 07/01/24 07/01/24 13:49 Patient Tobacco Use Status Current everyday Tobacco 07/01/24 13:44 Tobacco use type Cigarette 07/01/24 13:44 e-Cigarette/Vaping Use Never Used 07/01/24 13:44 Thrive Assessment: Date of Thrive Assessment Date Thrive assessed 04/10/24 07/01/24 13:44 Currently or been in a relationship where the following occur: I choose not to answer Const Other: General: no acute distress and well developed Nutritional Appearance: well nourished Orientation/consciousness: patient oriented x3 HENMT Head: Yes normocephalic and Yes atraumatic Eyes General: appearance normal, both eyes and all related structures Pupils: Equal, round and reactive pupils present EOM: EOMs intact bilaterally Resp Effort & Inspection: normal respiratory effort Auscultation: clear to auscultation bilaterally Cardio Rate: regular rate Rhythm: regular rhythm Heart sounds: S1 normal heart sound present, S2 normal heart sound present, no gallops, no murmurs and no rubs GI Palpation (GI): No Abdominal aortic bruit present, Soft to palpation, nontender, No hepatosplenomegaly present and No Rebound tenderness present Auscultation: normal bowel sounds General: Yes no CVA tenderness Back/Spine/Pelvis Back: no CVA tenderness Cervical Spine: cervical ROM normal and No Cervical spine tenderness Thoracic/Lumbar Spine: thoraco-lumbar ROM normal, No pain with thoraco-lumbar ROM, No thoracic spinal tenderness and No lumbar spinal tenderness Extrem General: Yes normal to inspection, No edema and No calf tenderness Skin General: warm and dry. Normal skin color. Normal skin turgor Lesions: no lesions Rashes: 3 slightly red, slightly raised blister like bumps to the lateral aspect of the right index finger, no pain, drainage, or overt infection Trauma: no lacerations or abrasions Wounds: no wounds Nails: normal Neuro General: patient oriented x3, gait normal and no focal neuro deficit Cranial nerves: Yes Equal, round and reactive pupils present Cognition (Neuro): normal cognition Gait exam (Neuro): Normal gait present Sensory Exam: No Sensory deficit (Neuro) Psych Appearance: grossly normal Affect: normal affect Attitude: cooperative Thought process: Normal thought process present Coding Level of Care Code Est Pt Level 3 (66583) Diagnoses Skin lesion L98.9 Assessment & Plan Assessment & Plan (1) Skin lesion: Code(s): L98.9 - Disorder of the skin and subcutaneous tissue, unspecified Category: Medical Plan: Reports possible spider bite to her right index finger which she noticed 4 days ago. Three slightly red, slightly raised blister like bumps to the lateral aspect of the right index finger, no pain, drainage, or overt infection. Advised to not pop the bumps. Encouraged to wash the area with soap and water few times daily and apply antibiotic ointment such as bacitracin or Neosporin twice daily. May apply antihistamine cream such as Benadryl for itching. May take Tylenol ibuprofen will apply cool compresses for pain or discomfort. Follow-up with worsening or new signs and symptoms such as fever, chills, body aches, severe pain, or increase redness to the area. Verbalized understanding and agreed with the plan.
[2024-07-01 13:46] VITALS: BP 116/76; PULSE 105; RESP 16; TEMP 36.8; O2SAT 97; BMI 42.0
== END 2024-07-01 14:44 | disposition home or self-care (01) ==
LOC: HO.HMCFM 13:40
PROVIDERS: PCP Family Medicine; Visit Provider Nurse Practitioner Family
DX: L98.9 Disorder of the skin and subcutaneous tissue, unspecified (principal)

== ENCOUNTER → 2024-07-01 13:39 | Outpatient (BNVA) | payer OTHER, SELFPAY | PROVIDERS: PCP Family Medicine; Visit Provider Nurse Practitioner Family | DX: L98.9 Disorder of the skin and subcutaneous tissue, unspecified (principal) | CPT/HCPCS: 99212 ==

== ENCOUNTER 2024-07-02 09:59 | Outpatient (AMB) | payer OTHER, SELFPAY ==
--- NOTE | 2024-07-02 10:01 | A.OFFVIS_ITS ---
Vital Signs 07/02/24 10:02 Height 5 ft 3 in Weight 134 lb 0.657 oz BMI 23.7 BP 90/64 Blood Pressure Location Rt brachial Position Sitting Pulse 128 H Pulse Source Pulse Oximeter Pulse Oximetry (%) 98 Oxygen Delivery Method Room Air Intake Visit Reasons: S/P Double; Dr. Singer Intake Note: ESTABLISHED PATIENT for s/p jasmin w/ Dr. Singer. Chief Complaint; C/O generalized GI upset related to stress and anxiety per pt. No additional concerns at this time. Pt reports this is per her baseline. Respiratory Care Specialist Required: No Accompanied by: Self / Same As Patient Allergies benzoin Allergy (Intermediate, Verified 07/02/24 11:35) Rash povidone-iodine Allergy (Intermediate, Verified 07/02/24 11:35) Rash buspirone [From BuSpar] Adverse Reaction (Mild, Verified 07/02/24 11:35) anxiety, jittery steri strips Allergy (Mild, Uncoded 07/02/24 11:35) burning skin HPI HPI S/P Double; Dr. Singer: Details: LAST VISIT: Screening for colon cancer Nausea GERD (gastroesophageal reflux disease) Plan Patient denies any cardiac or respiratory symptoms. Patient reports occasional epigastric pain, nausea and acid reflux. Occasional dyspepsia without dysphagia or odynophagia. Patient does admit that her anxiety makes her symptoms worse. Patient will be sent for upper endoscopy, history of H pylori in the past that he was on endoscopy and treated. Patient will be started on Nexium. She will call our office she will continue to have symptoms. Discussed with patient avoiding dietary triggers and late night snacking. Staying upright for minimum 3 hours after meals discussed patient.? Denies any issues with anesthesia in the past.? Denies any history of sleep apnea.? No history infectious diseases in the past or present.? Not on any anticoagulation therapy.? No family or personal history of colon cancer or polyps.? Patient denies melena, hematochezia, unintentional weight loss or ribbon like stools.? Discussed at length the pre- procedure,? prep, diet & medications as well as what to expect prior, during and after the procedure.?? Stressed the importance of good bowel prep.? Recommended the use of Vaseline or Calmoseptine OTC & baby wipes with bowel movements to promote comfort.? ?Patient verbalizes understanding and agrees to plan of care.? She was given the opportunity to ask questions and all questions answered.? We will see her after the procedure.? Medications New polyethylene glycol 3350 (Miralax) As directed by gastroenterology department at [facility] 238 grams PO ONCE 238 grams 0RF Z12.11 esomeprazole magnesium (Nexium) 20 mg PO DAILY 30 caps 4RF bisacodyl (Dulcolax (bisacodyl)) take 4 tabs at noon the day before your colonoscopy 20 mg (4 x 5 mg) PO ONCE 1 day 4 tabs 0RF Z12.11 UPPER ENDOSCOPY AND COLONOSCOPY EGD Procedure:?? The procedure, indications, preparation and potential complications were re viewed with the patient, who indicated understanding and gave written informed consent to proceed. The endoscope was introduced through the mouth, and advanced to the 2nd part of the duodenum. The mucosa was carefully examined on slow withdrawal of the endoscope. The patient tolerated the procedure well. There were no immediate complications.? EGD Findings:? * Esophagus:? Normal esophageal mucosa was noted. The Z-line was at 39 cm. Cold forceps biopsies were taken from middle and lower esophagus to rule out eosinophilic esophagitis. * Stomach:? Normal gastric mucosa. Retroflexion was performed in the cardia. Random cold forceps biopsies were taken from the stomach. * Duodenum:? Patchy loss of vili with petechiae noted in the sweep. Remaining duodenal mucosa was normak. Cold forceps biopsies were taken to rule out celiac sprue. Colonoscopy Procedure:? The patient was then turned for the colonoscopy. A digital rectal exam was performed which was normal.? A distal attachment cap was affixed to the tip of the scope and the colonoscope was then inserted through the anus and advanced through the colon and advanced to the cecum at 70 cm and terminal ileum.? Appendiceal orifice and ileocecal valve were identified. Mucosa was carefully examined under high definition white light as the instrument was slowly withdrawn in a retrograde panoramic fashion. Retroflexion was performed in ascending colon and rectum. The procedure was not difficult. The quality of the prep was BBPS: 3+2+2 = adequate Withdrawal time 6 minutes Limitations: No limitations Findings: Mucosa: Normal colon and terminal ileum mucosa. Protruding lesions: * 1 sessile polyp of size 6 mm in transverse colon. Cold snare polypectomy was performed. The polyp was completely removed and retrieved. * Medium internal hemorrhoids without stigmata of recent bleeding. Impression: 1. Normal esophagus (biopsy) 2. Normal stomach (biopsy) 3. Duodenitis (biopsy) 4. Normal colon and terminal ileum mucosa (biopsy) 5. 1 polyp removed 6. Internal hemorrhoids Recommendations:?? * Follow-up path results * Avoid NSAIDs * H Pylori treatment if biopsies + * Repeat colonoscopy for CRC screening in 7-10 years. PATHOLOGY: Diagnosis A. Duodenum, biopsy: Chronic inactive duodenitis. B. Stomach, random, biopsy: Antral-type mucosa with mild chronic inactive inflammation; no Helicobacter organisms seen. C. Esophagus, lower, biopsy: - Cardiac-type mucosa with mild chronic inactive inflammation; no intestinal metaplasia seen. - Active esophagitis (few neutrophils and eosinophils). D. Esophagus, middle, biopsy: Squamous epithelium within normal limits; no inflammation seen. D. Colon, transverse, polypectomy: Fragments of tubular adenoma; negative for high-grade dysplasia or carcinoma. TODAY'S VISIT Patient is here today for follow-up and to discuss upper endoscopy and colonoscopy results. Patient denies any ill effects from the prep, anesthesia or procedure itself. Patient reports to be feeling well takes pantoprazole daily and her symptoms are suppressed for the most part. Sometimes and patient eat something spicy or fried she my have symptoms, however she is trying to avoid dietary triggers. Patient had normal esophagus and stomach mild duodenitis. Patient is not taking NSAIDs. Colonoscopy showed tubular adenoma without high-grade dysplasia or carcinoma in transverse colon. Colonoscopy recommended in 7 years. Patient denies any melena, hematochezia, unintentional weight loss or ribbon like stools. Patient denies any dyspepsia, dysphagia or odynophagia. [facility] Medical History (Updated 07/02/24 @ 18:54 by Glenis Dozier FIELD ARTILLERY CANNONEER-) Tubular adenoma of colon Anxiety Depression OCD (obsessive compulsive disorder) ADHD Asthma Dislocation of fifth toe, right, closed Cervical spondylosis Pneumothorax Cellulitis Pneumonia Tuberculosis Hepatitis Surgical History Normal esophagogastroduodenoscopy (EGD) Hx of colonoscopy (~2013) S/P lumpectomy, left breast [place] teeth extracted H/O: hysterectomy Family History Mother Breast cancer Anxiety Depression Substance use disorder Father Mental health disorder Paternal Grandmother Breast cancer Social History Household Members: Family Both parents involved: No Caregiver staying overnight: No Housing: House Are you a primary animal daycare provider to a significant other at home: No Do you presently have visiting nurse or other home services: No 75 years or older and lives alone: No Alcohol intake: former Patient Tobacco Use Status: Current everyday Tobacco user Tobacco use type: Cigarette Cigarette Packs Per Day: 10 Cigarettes Per Day: 10 e-Cigarette/Vaping Use: Never Used Second Hand Smoke Exposure: Yes Substance Use Type: Club/Material Flow Analyst Drugs, Crack/Cocaine, Hallucinogens, Heroin, IV Drugs, Marijuana, Opiates, Other, Painkillers and Prescription Drugs Special nick needs: Yes Special nick accommodation details: voodoo service: No Current occupational status: employed 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 Cognitive needs: No Hearing needs: No Vision needs: Yes (Patient wears glasses) Review of Systems Const Denies weight gain and Denies weight loss ENT Reports no additional complaints, Denies dysphagia and Denies odynophagia Card Reports no additional complaints Resp Reports no additional complaints GI Reports abdominal pain (Occasional epigastric), Denies belching, Denies melena, Reports bloating, Denies change in bowel habits, Denies dysphagia, Denies excessive flatus, Denies dyspepsia, Reports heartburn, Denies diarrhea, Denies loose stools, Denies nausea, Denies odynophagia and Denies vomiting Reports no additional complaints Musc Reports no additional complaints Neuro Reports no additional complaints Psych Reports no additional complaints Endo Reports no additional complaints Physical Exam Vital Signs: Last Vital Signs Pulse 128 H 07/02/24 10:02 BP 90/64 07/02/24 10:02 Pulse Ox 98 07/02/24 10:02 Oxygen Delivery Method Room Air 07/02/24 10:02 BMI result Body Mass Index 23.7 Assessment & Plan Assessment & Plan (1) Tubular adenoma of colon: Code(s): D12.6 - Benign neoplasm of colon, unspecified Category: Medical (2) Status post colonoscopy: Code(s): Z98.890 - Other specified postprocedural states (3) Duodenitis: Code(s): K29.80 - Duodenitis without bleeding (4) GERD (gastroesophageal reflux disease): Code(s): K21.9 - Gastro-esophageal reflux disease without esophagitis Qualifiers: Esophagitis presence: without esophagitis Qualified Code(s): K21.9 - Gastro-esophageal reflux disease without esophagitis Plan Patient will continue taking pantoprazole daily. Avoid dietary triggers and late night snacking. Staying upright for minimum 3 hours of him as discussed with patient. Colonoscopy in 7 years, sooner if clinically necessary. Patient will follow-up in the office in 6 months, sooner on as needed basis. Patient is agreeable to this plan and verbalizes understanding of instructions. She was given the opportunity to ask questions and all questions answered. Thank you for allowing me to participate in her care Medications: Refilled pantoprazole 20 mg PO DAILY 90 tabs 1RF Coding Level of Care Code Est Pt Level 3 (99628) Diagnoses Tubular adenoma of colon D12.6 Status post colonoscopy Z98.890 Duodenitis K29.80 Gastroesophageal reflux disease without esophagitis K21.9 Esophagitis presence: without esophagitis Time Spent (min) 30 Comment 20 minutes spent with patient and additional 10 minutes spent reviewing her records
[2024-07-02 10:02] VITALS: BP 90/64; PULSE 128; O2SAT 98; BMI 23.7
== END 2024-07-02 10:46 | disposition home or self-care (01) ==
LOC: HO.HGI 09:59
PROVIDERS: PCP Family Medicine; Visit Provider Nurse Practitioner Family
DX: D12.6 Benign neoplasm of colon, unspecified (principal); Z98.890 Other specified postprocedural states; K29.80 Duodenitis without bleeding; K21.9 Gastro-esophageal reflux disease without esophagitis
CPT/HCPCS: 99213

== ENCOUNTER → 2024-07-02 09:59 | Outpatient (BNVA) | payer OTHER, SELFPAY | PROVIDERS: PCP Family Medicine; Visit Provider Nurse Practitioner Family | DX: B00.89 Other herpesviral infection (principal); I89.1 Lymphangitis; K29.80 Duodenitis without bleeding; K21.9 Gastro-esophageal reflux disease without esophagitis; D12.6 Benign neoplasm of colon, unspecified; Z79.899 Other long term (current) drug therapy; Z98.890 Other specified postprocedural states | CPT/HCPCS: 99212 ==

== ENCOUNTER 2024-07-02 11:09 | Outpatient (AMB) | payer OTHER, SELFPAY ==
--- NOTE | 2024-07-02 11:33 | AM.OFFWIN_ITS ---
Intake Vital Signs 07/02/24 11:34 Weight 135 lb BP 120/70 Blood Pressure Location Lt brachial Position Sitting Pulse 139 H Pulse Source Pulse Oximeter Temp 98.1 F Temp Source Oral Pulse Oximetry (%) 97 Oxygen Delivery Method Room Air Intake Visit Reasons: EP-rt arm sore thru pointer finger Intake Note: Patient here for bumps on pointer finger on right hand and is now having a red trail up the arm and armpit soreness. Patient Tobacco Use Status: Current everyday Tobacco user Allergies benzoin Allergy (Intermediate, Verified 07/02/24 11:35) Rash povidone-iodine Allergy (Intermediate, Verified 07/02/24 11:35) Rash buspirone [From BuSpar] Adverse Reaction (Mild, Verified 07/02/24 11:35) anxiety, jittery steri strips Allergy (Mild, Uncoded 07/02/24 11:35) burning skin Do you need a note to return to daycare/school/sports/work: No HPI HPI Comments History of Present Illness Details History of Present Illness - The patient is a 48-year-old female pr esenting with a recurrent finger infection x5d. She has a history of cellulitis, lymphangitis, and past MRSA infections but notes no recent intravenous drug use despite a history 15 years ago. The current episode involves blistering and swelling primarily on the right index finger following minor skin injuries and potential environmental exposure. Burning symptoms began Sunday after recent hand trauma, with subsequent blister worsening the following day. Previous episodes have led to significant finger enlargement and streaking, leading to hospital admissions. The patient works in a [id number] environment and utilizes artificial nails to mitigate compulsive biting due to OCD. She tells me she did go to her primary care doctor's office yesterday but was told to ?go home and wash her hands and put Neosporin on it . She now states the infection is worse, her skin is warm and painful. Patient has brought discharge paperwork from [facility] supporting her recurrent issues with cellulitis and lymphangitis x2 admissions. Physical Exam General: Cooperative, healthy appearing, comfortable, no acute distress and well developed Orientation: Patient oriented x3 Limitations: No limitations Head: Normal to inspection Ears: Hearing grossly normal bilaterally Nose: Normal External nose present Face and sinus: Normal facial exam Eyes: Appearance normal, both eyes and all related structures Neck: Normal visual inspection and Yes full ROM Respiratory: Normal respiratory effort and able to speak in complete sentences. Skin: No rashes or lesions noted Neuro: Patient oriented x3 Extremities: Right index finger with 3 small raised papules (not fluid filled) on medial side with erythema and warmth and red swath traversing up to her elbow. Full ROM hand, fingers and elbow. Fingers NVI. PFSH Medical History Anxiety Depression OCD (obsessive compulsive disorder) ADHD Asthma Dislocation of fifth toe, right, closed Cervical spondylosis Pneumothorax Cellulitis Pneumonia Tuberculosis Hepatitis Surgical History Normal esophagogastroduodenoscopy (EGD) Hx of colonoscopy (~2013) S/P lumpectomy, left breast [place] teeth extracted H/O: hysterectomy Family History Mother Breast cancer Anxiety Depression Substance use disorder Father Mental health disorder Paternal Grandmother Breast cancer Social History Household Members: Family Both parents involved: No Caregiver staying overnight: No Housing: House Are you a primary career services coordinator to a significant other at home: No Do you presently have visiting nurse or other home services: No 75 years or older and lives alone: No Alcohol intake: former Patient Tobacco Use Status: Current everyday Tobacco user Tobacco use type: Cigarette Cigarette Packs Per Day: 10 Cigarettes Per Day: 10 e-Cigarette/Vaping Use: Never Used Second Hand Smoke Exposure: Yes Substance Use Type: Club/Gaming Worker Drugs, Crack/Cocaine, Hallucinogens, Heroin, IV Drugs, Marijuana, Opiates, Other, Painkillers and Prescription Drugs Special nick needs: Yes Special nick accommodation details: jehovah's witness service: No Current occupational status: employed 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 Cognitive needs: No Hearing needs: No Vision needs: Yes (Patient wears glasses) Review of Systems Const All systems reviewed & are unremarkable except as noted in HPI and below Physical Exam Vital Signs: Last Vital Signs Temp 98.1 F 07/02/24 11:34 Pulse 139 H 07/02/24 11:34 BP 120/70 07/02/24 11:34 Pulse Ox 97 04/02/25 11:34 Oxygen Delivery Method Room Air 07/02/24 11:34 Assessment & Plan Assessment & Plan (1) Herpetic ronny of finger of right hand with lymphangitis: Code(s): B00.89 - Other herpesviral infection; I89.1 - Lymphangitis Plan: VSS, pt well appearing, right 2nd digit has a likely secondary bacterial infection from viral infection, now traveling up her right arm. The approach to managing the recurrent finger infection includes initiating a course of Keflex and Bactrim. We discussed a plan to escalate care to potential IV antibiotics if there is no improvement after initiating PO abx. The rationale includes a history of MRSA, former IVDA, and recurrent infections. The patient is advised to proceed to the ER with progression to systemic symptoms for further evaluation and management. The medications provided are aimed at symptomatic relief and containment pending reevaluation of the clinical response. Patient was informed and verbally consented to the use of an ambient scribe for clinic note documentation during this visit. Medications: New sulfamethoxazole-trimethoprim 800-160 mg (Bactrim DS) 1 tab PO Q12H 14 tabs 0RF cephalexin 500 mg PO Q6H 28 caps 0RF Coding Level of Care Code Est Pt Level 3 (75826) Diagnoses Herpetic ronny of finger of right hand with lymphangitis B00.89; I89.1
[2024-07-02 11:34] VITALS: BP 120/70; PULSE 139; TEMP 36.7; O2SAT 97
== END 2024-07-02 12:33 | disposition home or self-care (01) ==
PROVIDERS: PCP Family Medicine; Visit Provider Physician Assistant
DX: B00.89 Other herpesviral infection (principal); I89.1 Lymphangitis

== ENCOUNTER 2024-07-03 11:45 | Inpatient (IN) | payer OTHER, SELFPAY ==
[2024-07-03 11:59] VITALS: BP 116/87; PULSE 110; RESP 20; TEMP 37.2; O2SAT 97; BMI 24.5
--- NOTE | 2024-07-03 12:00 | ED.GENADULT ---
HPI - General Adult General Chief complaint: Skin/Abscess/Foreign Body Stated complaint: Bump on R hand Time Seen by Provider: 07/03/24 15:04 Source: patient, RN notes reviewed and old records reviewed Mode of arrival: ambulatory History of Present Illness ED Provider: Avis Del Real PA-C HPI narrative: 48-year-old female with a past medical history of anxiety, depression, OCD, ADHD, asthma, hepatitis, history of MRSA, former IVDA, presenting to the ED complaining of right index finger blistering and increasing swelling / erythema progressing to axilla x 4 days. Admits was seen by PCP on Sunday who told her to apply topical antibiotic ointment and wash her hands. Was seen at urgent care yesterday prescribed Bactrim and Keflex which she started taking, however states streaking erythema has worsened since yesterday. Reports chills. Denies fever, injury, recent IV placement, current IVDA. Related Data Home Medications ?Medication ?Instructions ?Recorded ?Confirmed buprenorphine 2 mg-naloxone 0.5 mg 1 film buccal DAILY 07/12/23 04/16/24 sublingual film (Suboxone) escitalopram oxalate 20 mg tablet 20 mg PO DAILY 07/12/23 04/16/24 (Lexapro) acetylcysteine 600 mg capsule (NAC) 600 mg PO BID 12/05/23 04/16/24 atomoxetine 40 mg capsule mg PO QAM 07/02/24 Previous Rx's ?Medication ?Instructions ?Recorded terbinafine HCl 250 mg tablet 250 mg PO DAILY 30 days #30 tabs 03/18/24 albuterol sulfate 90 mcg/actuation 2 puff inhalation Q4-6H PRN 04/16/24 aerosol inhaler (Ventolin HFA) shortness of breath or wheezing 30 days #8.5 grams atorvastatin 10 mg tablet 10 mg PO DAILY 90 days #90 tabs 04/16/24 cephalexin 500 mg capsule 500 mg PO Q6H #28 caps 07/02/24 pantoprazole 20 mg tablet,delayed 20 mg PO DAILY #90 tabs 07/02/24 release sulfamethoxazole 800 1 tab PO Q12H #14 tabs 07/02/24 mg-trimethoprim 160 mg tablet (Bactrim DS) Allergies Allergy/AdvReac Type Severity Reaction Status Date / Time benzoin Allergy Intermediate Rash Verified 07/03/24 12:02 povidone-iodine Allergy Intermediate Rash Verified 07/03/24 12:02 buspirone [From BuSpar] AdvReac Mild anxiety, Verified 07/03/24 12:02 jittery steri strips Allergy Mild burning Uncoded 07/03/24 12:02 skin Review of Systems Review of Systems: Yes all other systems are reviewed and are negative Constitutional: Constitutional: Reports as per [facility] Past Medical History Attestation statement: The following information was validated with the patient. Source: old records reviewed Medical History Tubular adenoma of colon Anxiety Depression OCD (obsessive compulsive disorder) ADHD Asthma Dislocation of fifth toe, right, closed Cervical spondylosis Pneumothorax Cellulitis Pneumonia Tuberculosis Hepatitis Surgical History Normal esophagogastroduodenoscopy (EGD) Hx of colonoscopy (~2013) S/P lumpectomy, left breast [place] teeth extracted H/O: hysterectomy Family History Family History Mother Breast cancer Anxiety Depression Substance use disorder Father Mental health disorder Paternal Grandmother Breast cancer Social History Social History Household Members: Family Housing: House Are you a primary acute care nurse practitioner to a significant other at home: No Do you presently have visiting nurse or other home services: No Alcohol intake: former Patient Tobacco Use Status: Current everyday Tobacco user Tobacco use type: Cigarette Cigarette Packs Per Day: 10 Cigarettes Per Day: 10 Smoked in Last 30 Days: Yes e-Cigarette/Vaping Use: Never Used Second Hand Smoke Exposure: Yes Use of substances other than those prescribed or required for medical reasons: Yes Substance Use Type: Marijuana Substance Use Frequency: Daily Last Used Substance: Hours (ago) Special nick needs: Yes Special nick accommodation details: mosque Advance Directives: No Advance Directives Information Provided: No Do you have a plan to hurt others: No Plan Nutrition Risks: No Nutritional Risk service: No Current occupational status: employed 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 Cognitive needs: No Hearing needs: No Vision needs: Yes (Patient wears glasses) Physical Exam ED Vital Signs: Vital Signs - 24 hr 07/03/24 11:59 07/03/24 15:44 Temperature 98.9 F 98.8 F Pulse Rate 110 H 86 Respiratory Rate 20 16 Blood Pressure 116/87 107/83 Pulse Oximetry 97 96 Oxygen Delivery Method Room Air Room Air BMI result Body Mass Index 24.5 Const General: cooperative, healthy appearing and no acute distress Orientation/consciousness: patient oriented x3 Limitations: no limitations HENMT Head: Yes normal to inspection and Yes atraumatic Ears: hearing grossly normal bilaterally General nose exam: Normal external nose present Face and sinus: Yes normal facial exam Eyes General: appearance normal, both eyes and all related structures EOM: EOMs intact bilaterally Neck Neck: Yes normal visual inspection and Yes no meningeal signs Resp Effort & Inspection: normal respiratory effort and no respiratory distress Cardio Rate: regular rate Skin Wounds: no wounds Neuro General: patient oriented x3, tone normal and no meningeal signs Cranial nerves: Yes CN's II-XII intact bilaterally Gait exam (Neuro): Normal gait present Extrem Other: Please refer to image above. Fluid-filled blister noted to right index finger with extending lymphangitis to axilla. Tender to palpation. ROM to index finger slightly limited secondary to pain/ swelling. Neurovascularly intact. Course Course Course Narrative: This is a rapid medical exam performed by Rodrick Gibbons NP: Additional HPI, ROS, PE not included below will be deferred to primary provider. 07/03/24 12:01 Patient is a 48-year-old right hand dominant female presenting with complaint of blistering to right index finger since Sunday. Noted streaking up arm to elbow yesterday, now has lymphangitis to axilla. History of similar infections requiring inpatient hospitalization in the past. Denies fevers. Started PO abx from yesterday. Plan: labs including cultures 1424-- CRP minimally elevated. Labs otherwise reassuring. > plan to admit for further management. Will discuss case with hospitalist Medications Administered Generic Name Dose Route Start Last Admin Trade Name Freq PRN Reason Stop Dose Admin Sodium Chloride 3 ml 07/03/24 16:00 07/03/24 16:02 0.9 % Sodium Chloride Flush 3 Ml Syringe IVFLUSH 3 ml QSHIFT ZACH Administration Discontinued Medications Generic Name Dose Route Start Last Admin Trade Name Freq PRN Reason Stop Dose Admin Ceftriaxone Sodium 1 gm 07/03/24 15:21 07/03/24 15:57 Ceftriaxone Sodium 1 Gm Vial IVPUSH 07/03/24 15:22 1 gm ONCE ONE Administration Vancomycin HCl 1,500 mg/ 500 mls @ 333.333 mls/hr 07/03/24 15:21 07/03/24 16:20 Sodium Chloride IV 07/03/24 16:50 333.33 mls/hr ONCE ONE Administration Medical Decision Making Medical Decision Making MDM Narrative: 48-year-old female with a past medical history of anxiety, depression, OCD, ADHD, asthma, hepatitis, history of MRSA, former IVDA, presenting to the ED complaining of right index finger blistering and increasing swelling / erythema progressing to axilla x 4 days. On exam tachycardic, NAD, nontoxic appearing, please refer to images above. Concern for cellulitis with extending lymphangitis to axilla. Concern for possible spider bite vs herpetic ronny. lower suspicion for abscess. Lower suspicion for acute tenosynovitis or septic joint at this time Plan: Labs, lactic / blood cultures, IV antibiotics, admission Please refer to course for remaining clinical decision making, interpretation of labs/imaging results, and discussions with consultants and/or family members. Differential Diagnosis Differential Diagnoses: The differential diagnosis associated with the presentation includes As above Admission/Observation Consideration of admission/observation: Escalation of care including admission/observation considered Consult Healthcare Provider Management of the patient was discussed with: Hospitalist Lab Data [facility] Lab Attestation statement: I reviewed the patient's lab results. 07/03/24 12:22 07/03/24 12:22 Labs: Lab Results 07/03/24 Range/Units 12:22 WBC 5.1 (4.8-10.8) X10*3/uL RBC 4.52 (4.20-5.50) X10*6/uL Hgb 14.6 (12.0-16.0) g/dl Hct 40.3 (37.0-47.0) % MCV 89.2 (80.0-98.0) fL MCH 32.3 (27.0-33.0) pg MCHC 36.2 H (31.0-35.0) g/dl RDW 12.6 (11.0-16.0) % Plt Count 178 D (160-400) X10*3/uL MPV 9.7 (9.4-12.3) fL Immature Gran % (Auto) 0.2 (0.0-0.4) % Neut % (Auto) 71.2 (45-73) % Lymph % (Auto) 20.1 (20-40) % [place] % (Auto) 7.5 (2-11) % Eos % (Auto) 0.4 (0-4) % Baso % (Auto) 0.6 (0-2) % Lymph # (Auto) 1.0 L (1.2-4.9) X10*3/uL [place] # (Auto) 0.4 (0.1-1.2) X10*3/uL Eos # (Auto) 0.0 (0.0-0.4) X10*3/uL Baso # (Auto) 0.0 (0.0-0.2) X10*3/uL Abs Immat Gran (auto) 0.01 (0.00-0.03) X10*3/uL Absolute Neuts (auto) 3.6 (2.0-8.3) x10*3/uL Absolute Nucleated RBC 0.000 (0.0-0.012) X10*3/uL Nucleated RBC % (auto) 0.0 (0.0-0.2) /100WBC ESR 10 (0-20) MM/HR Sodium 134 L (135-145) mmol/L Potassium 4.3 (3.3-5.1) mmol/L Chloride 107 (96-108) mmol/L Carbon Dioxide 20 L (22-29) mmol/L Anion Gap 11 L (12-20) BUN 14 (9-16) mg/dL Creatinine 0.68 (0.5-1.4) mg/dL Estim Creat Clear Calc 85.5 Estimated GFR > 60 Random Glucose 86 (60-115) mg/dL Lactic Acid 0.8 (0.5-2.0) mmol/L Calcium 9.0 D (8.4-10.2) mg/dL Total Bilirubin 0.5 (0.0-1.0) mg/dL AST 27 (5-31) U/L ALT 15 (0-31) U/L Alkaline Phosphatase 87 (39-117) U/L C-Reactive Protein 1.47 H (< or = 0.50) mg/dL Total Protein 7.4 (6.5-8.0) g/dL Albumin 4.4 (3.5-5.0) g/dL Radiology Impression Discussion of test interpretation with radiology: I have reviewed the radiologist's reading. External Record Review External record reviewed: Inpatient record, Office record, Outpatient record, Prior outpatient labs, Prior outpatient radiology, Primary care record and Outside ED record Tests considered The following testing was considered but not selected: As above Prescription Management I considered prescription management with: Pain Medication and Antibiotic Chronic Conditions Patient?s care impacted by: Other Social Determinants Patient?s care significantly limited by Social Determinants of Health including: Alcoholism and drug addiction in family and Problems related to primary support group Critical Care Time Critical Care Time Critical Care Time: Yes Total Critical Care Time: 32 Attestation: I have personally provided critical care time exclusive of time spent on separately billable procedures. Time includes review of lab data, radiology results, discussion with consultants, and monitoring for potential decompensation. Intervention performed as documented. Discharge Plan Discharge Clinical Impression: Lymphangitis Cellulitis Qualifiers: Site of cellulitis: extremity Site of cellulitis of extremity: upper extremity Laterality: right Qualified Code(s): L03.113 - Cellulitis of right upper limb Patient Disposition: Admitted As Inpatient Print Language: Ukrainian
[2024-07-03 12:28] LABS: MANUAL DIFF FLAG NO
[2024-07-03 12:29] LABS: Basophils Percent Auto 0.6 % (0-2); Eosinophils Percent Auto 0.4 % (0-4); Hematocrit 40.3 % (37.0-47.0); Hemoglobin 14.6 g/dl (12.0-16.0); Imm Gran Abs Auto 0.01 X10*3/uL (0.00-0.03); Imm Gran Pct Auto 0.2 % (0.0-0.4); Lymphocytes Percent Auto 20.1 % (20-40); Mean Corpuscular HGB Conc 36.2 g/dl (31.0-35.0); Mean Corpuscular Hemoglobin 32.3 pg (27.0-33.0); Mean Corpuscular Volume 89.2 fL (80.0-98.0); Mean Platelet Volume 9.7 fL (9.4-12.3); Monocytes Absolute Auto 0.4 X10*3/uL (0.1-1.2); Monocytes Percent Auto 7.5 % (2-11); Neutrophils Absolute Auto 3.6 x10*3/uL (2.0-8.3); Neutrophils Percent Auto 71.2 % (45-73); Platelet Count 178 X10*3/uL (160-400); Red Blood Count 4.52 X10*6/uL (4.20-5.50); Red Cell Distribution Width 12.6 % (11.0-16.0); White Blood Count 5.1 X10*3/uL (4.8-10.8)
[2024-07-03 12:52] LABS: Lactic Acid 0.8 mmol/L (0.5-2.0)
[2024-07-03 13:03] LABS: Alanine Aminotransferase 15 U/L (0-31); Albumin Level 4.4 g/dL (3.5-5.0); Alkaline Phosphatase 87 U/L (39-117); Anion Gap 11 (12-20); Aspartate Amino Transferase 27 U/L (5-31); Bilirubin Total 0.5 mg/dL (0.0-1.0); Blood Urea Nitrogen 14 mg/dL (9-16); C Reactive Protein 1.47 mg/dL (< or = 0.50); Carbon Dioxide 20 mmol/L (22-29); Chloride 107 mmol/L (96-108); Creatinine Clr Calc Pharmacy 85.5; Estimated Glomerular Filt Rate > 60; Glucose Random 86 mg/dL (60-115); Potassium 4.3 mmol/L (3.3-5.1); Sodium 134 mmol/L (135-145); Total Protein 7.4 g/dL (6.5-8.0)
[2024-07-03 13:13] LABS: Erythrocyte Sedimentation Rate 10 MM/HR (0-20)
[2024-07-03 15:44] VITALS: BP 107/83; PULSE 86; RESP 16; TEMP 37.1; O2SAT 96
--- NOTE | 2024-07-03 15:54 | P.HPHOSP_ITS ---
History of Present Illness Date of Service: 07/03/24 Attending physician on admission: Keri Johnson Chief Complaint: arm cellulitis 48y/o F recurrent finger infection x5d. She has a history of cellulitis, lymphangitis, and past MRSA infections ,hx of ivdu (she says she off ivdu last 15 years): she went to urgent care for blistering and swelling primarily on the right index finger/hand ,arm erythema following minor skin injuries and potential environmental exposure. Burning symptoms began day after recent hand trauma, with subsequent blister worsening the following day. Previous episodes have led to significant finger enlargement and streaking, leading to hospital admissions. The patient works in a [id number] environment and utilizes artificial nails to mitigate compulsive biting due to OCD. Patient initially tried to use Neosporin at home which did not help. Then subsequently went to walk-in clinic because hand and upper extremity were getting more warm and erythematous. Lab imaging reviewed: CBC seems fine mild hypernatremia on bmp esr normal crp :1.47 Patient was given vanco and ceftriaxone by ED, requested admission for upper extremity cellulitis. Denies any new complaint of chest pain or shortness of breath or abdominal pain or fever or chills or nausea or vomiting. Has some hand pain and erythema of hand going all the way up to the forearm and even to the forearm area. Review of Systems 2 Review of Systems: As above. Yes all other systems are reviewed and are negative FOR[facility]LY [facility] Medical History Tubular adenoma of colon Anxiety Depression OCD (obsessive compulsive disorder) ADHD Asthma Dislocation of fifth toe, right, closed Cervical spondylosis Pneumothorax Cellulitis Pneumonia Tuberculosis Hepatitis Family History Mother Breast cancer Anxiety Depression Substance use disorder Father Mental health disorder Paternal Grandmother Breast cancer Surgical History Normal esophagogastroduodenoscopy (EGD) Hx of colonoscopy (~2013) S/P lumpectomy, left breast [place] teeth extracted H/O: hysterectomy Social History Household Members: Family Housing: House Are you a primary critical care paramedic to a significant other at home: No Do you presently have visiting nurse or other home services: No Alcohol intake: former Patient Tobacco Use Status: Current everyday Tobacco user Tobacco use type: Cigarette Cigarette Packs Per Day: 10 Cigarettes Per Day: 10 Smoked in Last 30 Days: Yes e-Cigarette/Vaping Use: Never Used Second Hand Smoke Exposure: Yes Use of substances other than those prescribed or required for medical reasons: Yes Substance Use Type: Marijuana Substance Use Type Other:: Suboxone Substance Use Frequency: Daily Last Used Substance: Hours (ago) Do you feel safe in your current relationship?: Yes Special nick needs: Yes Special nick accommodation details: [facility] Advance Directives: No Advance Directives Information Provided: No Do you have a plan to hurt others: No Plan Recently lost weight without trying: No Nutrition Risks: No Nutritional Risk Patient : No : No Poor oral hygiene: No service: No Current occupational status: employed 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 Cognitive needs: No Hearing needs: No Vision needs: Yes (Patient wears glasses) Meds Allergies Allergy/AdvReac Type Severity Reaction Status Date / Time benzoin Allergy Intermediate Rash Verified 07/03/24 12:02 povidone-iodine Allergy Intermediate Rash Verified 07/03/24 12:02 buspirone [From BuSpar] AdvReac Mild anxiety, Verified 07/03/24 12:02 jittery steri strips Allergy Mild burning Uncoded 07/03/24 12:02 skin Active Medications: Current Medications Acetaminophen (Acetaminophen 325 Mg Tablet) 650 mg PO Q6H PRN PRN Reason: Pain, Mild 1-3,fever,headache Calcium Carbonate (Calcium Carbonate 750 Mg Tab.Chew) 750 mg PO Q4H PRN PRN Reason: Heartburn Ceftriaxone Sodium (Ceftriaxone Sodium 2 Gm Vial) 2 gm IVPUSH Q24H Z[facility] Vancomycin HCl 1,500 mg/ (Sodium Chloride) 500 mls @ 333.333 mls/hr IV ONCE ONE Stop: 07/03/24 16:50 Magnesium Hydroxide (Milk Of Magnesia 30 Ml Oral.Susp) 30 ml PO DAILY PRN PRN Reason: Constipation Melatonin (Melatonin 3 Mg Tablet) 6 mg PO BEDTIME PRN PRN Reason: Insomnia Pharmacy Consult (Consult Rx Vancomycin Dosing) 1 each MISCELLANE DAILY PRN PRN Reason: Consult order Sodium Chloride (0.9 % Sodium Chloride Flush 3 Ml Syringe) 3 ml IVFLUSH QSHIFT [facility] Home Medications ?Medication ?Instructions ?Recorded ?Confirmed ?Last Taken ?Type buprenorphine 2 mg-naloxone 0.5 mg 0.5 film buccal DAILY 07/12/23 07/03/24 07/02/24 History sublingual film (Suboxone) escitalopram oxalate 20 mg tablet 20 mg PO BEDTIME 07/12/23 07/03/24 07/02/24 History (Lexapro) acetylcysteine 600 mg capsule (NAC) 1,200 mg PO BID 12/05/23 07/03/24 07/03/24 History atomoxetine 40 mg capsule 40 mg PO DAILY 07/02/24 07/03/24 07/02/24 History acetaminophen 325 mg tablet 650 mg PO Q6H PRN Pain 07/03/24 07/03/24 Unknown History atorvastatin 10 mg tablet 10 mg PO BEDTIME 07/03/24 07/03/24 07/02/24 History pantoprazole 20 mg tablet,delayed 20 mg PO DAILY@0630 07/03/24 07/03/24 07/02/24 History release prazosin 1 mg capsule 1 mg PO BID PRN anxiety 07/03/24 07/03/24 Unknown History Physical Exam 2 Vital Signs and Narrative: Vital Signs: Last Vital Signs Temp 98.8 F 07/03/24 15:44 Pulse 86 07/03/24 15:44 Resp 16 07/03/24 15:44 BP 107/83 07/03/24 15:44 Pulse Ox 96 07/03/24 15:44 O2 Del Method Room Air 07/03/24 15:44 BMI result Body Mass Index 24.5 Appearance: Alert.? Oriented X3.? cvs: [id number], [id number] . res: clear to auscultation ,no rhonchii or wheezing abd: no rebound or guarding ,nt, bs present. ext pulses present , no cyanosis . skin:Has some hand pain and erythema of hand going all the way up to the forearm and even to the forearm area. neuro: axo3 , nonfocal. Results Labs 07/03/24 12:22 07/04/24 07:17 Labs: Laboratory Results - last 24 hr 07/03/24 12:22 MCV 89.2 MCH 32.3 MCHC 36.2 H RDW 12.6 Plt Count 178 D MPV 9.7 Immature Gran % (Auto) 0.2 Neut % (Auto) 71.2 Lymph % (Auto) 20.1 [place] % (Auto) 7.5 Eos % (Auto) 0.4 Baso % (Auto) 0.6 Lymph # (Auto) 1.0 L [place] # (Auto) 0.4 Eos # (Auto) 0.0 Baso # (Auto) 0.0 Abs Immat Gran (auto) 0.01 Absolute Neuts (auto) 3.6 Absolute Nucleated RBC 0.000 Nucleated RBC % (auto) 0.0 ESR 10 Anion Gap 11 L Estim Creat Clear Calc 85.5 Estimated GFR > 60 Random Glucose 86 Lactic Acid 0.8 Calcium 9.0 D Total Bilirubin 0.5 AST 27 ALT 15 Alkaline Phosphatase 87 C-Reactive Protein 1.47 H Total Protein 7.4 Albumin 4.4 Assessment and Plan (1) Cellulitis: Qualifiers: Laterality: right Site of cellulitis: extremity Site of cellulitis of extremity: upper extremity Qualified Code(s): L03.113 - Cellulitis of right upper limb Status: Acute Plan 48y/o F recurrent finger infection x5d. She has a history of cellulitis, lymphangitis, anxiety, depression, OCD, ADHD, asthma(mild intermittent),and past MRSA infections ,hx of ivdu (she says she off ivdu last 15 years): she went to urgent care for blistering and swelling primarily on the right index finger/hand ,arm erythema. Right arm cellulitis/ lymphangitis: No leukocytosis, blood culture pending esr normal , crp mild elevated Currently not septic. Continue IV vanco and ceftriaxone, vanco trough monitoring as per pharmacy ID evaluation Rest of the medical reconciliation pending. DVT prophylaxis: Low risk, ambulation. Patient will benefit from two midnight stay considering multiple episode of cellulitis requiring IV antibiotics, failed outpatient antibiotic therapy: Need IV antibiotics, significant area of cellulitis need close monitoring, blood culture pending Quality Stroke Does the patient have a stroke diagnosis?: No VTE Prior VTE?: No VTE Risk Level:: Medical - moderate - high VTE Device Contraindication: N/A - Device Ordered VTE Drug Contraindication: N/A - Med Ordered
[2024-07-03] MEDS: cefTRIAXone sodium 1 GM VIAL IVPUSH (15:57)
[2024-07-03] MEDS: 0.9 % Sodium Chloride Flush 3 ML SYRINGE IVFLUSH (16:02)
--- NOTE | 2024-07-03 16:13 | PC.NURSE ---
pharmacy called by this RN to retime the rocephin as the ED dose was just given and it is Q24 hours.
[2024-07-03] MEDS: vancomycin HCL 1,500 MG in 0.9 % Sodium Chloride 500 ML 333.33 MG IV (16:20)
[2024-07-03 17:58] VITALS: BP 106/69; PULSE 86; RESP 20; TEMP 36.9; O2SAT 98
--- NOTE | 2024-07-03 18:43 | PC.NURSE ---
Diet order placed, aware, kitchen called at this time.
--- NOTE | 2024-07-03 19:05 | PHA.PROG ---
Admission Date/Time: July 03, 2024 16:31 Indication: Skin Weight in k.8 kg Adjusted body weight in Kg: [place] body weight in Kg: Obesity Dosing Indication % IBW: Serum Creatinine - Last 168 Hours 07/03/24 12:22 Creatinine 0.68 Estimated CrCl and GFR - Last 168 Hours 07/03/24 12:22 Estim Creat Clear Calc 85.5 Estimated GFR > 60 Vancomycin Loading Dose: 1500mg x 1 Current Vancomycin Dosing Regimen: 1000mg Q12H Vancomycin Monitoring using AUC goal of 400 - 600 range with trough as surrogate marker: 502 mg/L Date and Time for next Vancomycin Level to be drawn: 07/04 @1500 Pharmacist Comments on Vancomycin Plan: Predicted trough of 14.9mg/L. Have to get level after 2 doses due to timing. Will continue to monitor and adjust as necessary Vancomycin dosing will take advantage of [employer] as a clinical decision support tool that uses Bayesian modeling to calculate individual patient's pharmacokinetic parameters and forecast the patient's drug concentration time course with the target goal AUC 24 range of 400 - 600 mg/L/hr.
--- NOTE | 2024-07-03 19:09 | PHA.MEDREC ---
Addendum entered by Godfrey Mitchell RPh 07/03/24 19:42: Reviewed by [facility]. Pt started antibiotics yesterday to complete on 07/08. Original Note: Pharmacy Consult ? Medication Reconciliation Pharmacy has completed the medication reconciliation. Spoke with patient and confirmed her medications. Patient confirmed her buprenorphine 2 mg-naloxone 0.5 mg sublingual film and stated she cuts the films into 5ths (1/5 or 0.2mg) and takes 1 of those daily. She confirmed she started taking the Cephalexin 500mg and sulfamethoxazole 800 mg-trimethoprim 160 mg tablets yesterday. She states she stopped taking the Terbenafine about 1 month ago due to not seeing much of a different taking it or not. She confirmed she got switched from Clonidine 0.1mg tab to the Prazosin 1mg tab back in December for her anxiety. She confirmed she took a dose of the Cephalexin, NAC and sulfamethoxazole trimethoprim this morning and everything else was taken yesterday.
[2024-07-03 21:45] LABS: Amphetamine Screen Urine Not Detected (Not Detect); Barbiturates, Urine Not Detected (Not Detect); Benzodiazepines Screen Urine Not Detected (Not Detect); Buprenorphine Scr Positive (Not Detect); Cannabinoid Screen Urine POSITIVE (Not Detect); Cocaine Screen Urine Not Detected (Not Detect); Fentanyl, urine Not Detected (Not Detect); Methadone Screen, Urine Not Detected (Not Detect); Opiate Screen Urine Not Detected (Not Detect); Oxycodone Screen Urine Not Detected (Not Detect); Phencyclidine Screen Urine Not Detected (Not Detect)
[2024-07-03 23:41] VITALS: BP 112/70; PULSE 80; RESP 20; TEMP 36.9; O2SAT 96
[2024-07-04] MEDS: 0.9 % Sodium Chloride Flush 3 ML SYRINGE IVFLUSH ×4 (03:57→20:33)
[2024-07-04 04:05] VITALS: BP 119/70; PULSE 64; RESP 16; TEMP 36.4; O2SAT 99
[2024-07-04] MEDS: vancomycin HCL 1,000 MG in 0.9 % Sodium Chloride 250 ML 270 MG IV (05:54)
[2024-07-04 07:45] LABS: Creatinine Clr Calc Pharmacy 84.2; Estimated Glomerular Filt Rate > 60
--- NOTE | 2024-07-04 08:31 | PC.NURSE ---
eliu olivarez sent to Dr. Johnson requesting order of home medications
--- NOTE | 2024-07-04 09:00 | MHC.EDTECH ---
pt transfered to [facility], provided clean linens and oriented to room and controls, resting comfortably at this time
[2024-07-04] MEDS: Acetaminophen 325 MG TABLET 650 MG PO ×2 (09:47→20:29)
[2024-07-04] MEDS: Buprenorphine/Naloxone 2/0.5mg FILM 0.5 FILM SUBLINGUAL (09:48)
[2024-07-04 12:00] VITALS: BP 123/77; PULSE 87; RESP 16; TEMP 36.6; O2SAT 97
[2024-07-04 13:52] VITALS: BP 120/81; PULSE 97; RESP 18; TEMP 36.2; O2SAT 98
--- NOTE | 2024-07-04 14:03 | MHC.CM.PN ---
pt is indepedent and working has own ride home declined hcp
--- NOTE | 2024-07-04 14:53 | HO.PM.IMPN ---
Subjective Subjective Date of Service: 07/04/24 Interval History: arm erythema Review of Systems arm erythema somewhat improving , has significant erythema no fevers Physical Exam Vital Signs: Vital Signs: Last Vital Signs Temp 97.1 F 07/04/24 13:52 Pulse 97 07/04/24 13:52 Resp 18 07/04/24 13:52 BP 120/81 07/04/24 13:52 Pulse Ox 98 07/04/24 13:52 O2 Del Method Room Air 07/04/24 13:52 BMI result Body Mass Index 24.5 Appearance: Alert.? Oriented X3.? cvs: rrr, [id number] . res: clear to auscultation ,no rhonchii or wheezing abd: no rebound or guarding ,nt, bs present. ext pulses present , no cyanosis . skin:Has some hand pain and erythema of hand going all the way up to the forearm and even to the forearm area. neuro: axo3 , nonfocal. Objective Data Active Medications Acetaminophen (Acetaminophen 325 Mg Tablet) 650 mg PO Q6H PRN PRN Reason: Pain, Mild 1-3,fever,headache Last Admin: 07/04/24 09:47 Dose: 650 mg Documented By: NATALIA Albuterol Sulfate (Albuterol Sulfate 90 Mcg 8 Gm Inhaler) 2 puff INHALE Q4H PRN PRN Reason: sob Atorvastatin Calcium (Atorvastatin Calcium 10 Mg Tablet) 10 mg PO BEDTIME [facility] Buprenorphine/Naloxone (Buprenorphine/Naloxone 2/0.5mg Film) 0.5 film SUBLINGUAL DAILY [facility] Last Admin: 07/04/24 09:48 Dose: 0.5 film Documented By: NATALIA Calcium Carbonate (Calcium Carbonate 750 Mg Tab.Chew) 750 mg PO Q4H PRN PRN Reason: Heartburn Ceftriaxone Sodium (Ceftriaxone Sodium 2 Gm Vial) 2 gm IVPUSH Q24H [facility] Escitalopram Oxalate (Escitalopram Oxalate 20 Mg Tablet) 20 mg PO BEDTIME [facility] Vancomycin HCl 1,000 mg/ (Sodium Chloride) 270 mls @ 270 mls/hr IV Q12H [facility] Last Infusion: 07/04/24 07:36 Dose: Infused Documented By: ESTEFANIA Magnesium Hydroxide (Milk Of Magnesia 30 Ml Oral.Susp) 30 ml PO DAILY PRN PRN Reason: Constipation Melatonin (Melatonin 3 Mg Tablet) 6 mg PO BEDTIME PRN PRN Reason: Insomnia Pt Owned Med ( Atomoxetine 40mg Capsules) 1 each PO DAILY [facility] Pantoprazole Sodium (Pantoprazole Sodium 20 Mg Tablet.Dr) 20 mg PO DAILY@0630 [facility] Pharmacy Consult (Consult Rx Vancomycin Dosing) 1 each MISCELLANE DAILY PRN PRN Reason: Consult order Prazosin HCl (Prazosin Hcl 1 Mg Capsule) 1 mg PO BID PRN; Protocol PRN Reason: anxiety Sodium Chloride (0.9 % Sodium Chloride Flush 3 Ml Syringe) 3 ml IVFLUSH QSHIFT [facility] Last Admin: 07/04/24 07:36 Dose: 3 ml Documented By: ESTEFANIA Labs 07/03/24 12:22 07/04/24 07:17 Labs: Laboratory Results - last 24 hr 07/03/24 07/04/24 21:28 07:17 Estim Creat Clear Calc 84.2 Estimated GFR > 60 Urine Opiates Screen Not Detected Ur Buprenorphine Scrn Positive H Ur Oxycodone Screen Not Detected Urine Methadone Screen Not Detected Urine Fentanyl Screen Not Detected Ur Barbiturates Screen Not Detected Ur Phencyclidine Scrn Not Detected Ur Amphetamines Screen Not Detected U Benzodiazepines Scrn Not Detected Urine Cocaine Screen Not Detected U Marijuana (THC) Screen POSITIVE H Microbiology Microbiology Results: Microbiology 07/03/24 12:22 Blood Culture - Preliminary Blood - Venous No growth after 24 hours. Assessment and Plan (1) Cellulitis: Status: Acute (2) Lymphangitis: Status: Acute Assessment and Plan: 48y/o F recurrent finger infection x5d. She has a history of cellulitis, lymphangitis, anxiety, depression, OCD, ADHD, asthma(mild intermittent),and past MRSA infections ,hx of ivdu (she says she off ivdu last 15 years): she went to urgent care for blistering and swelling primarily on the right index finger/hand ,arm erythema. Right arm cellulitis/ lymphangitis: No leukocytosis, blood culture pending esr normal , crp mild elevated Currently not septic. Continue IV vanco and ceftriaxone, vanco trough monitoring as per pharmacy ID evaluation anxiety/depression: continue atomoxetine ,estalopram asthma(mild intermittent): stable continue prn albuterol DVT prophylaxis: Low risk, ambulation. ongoing need -considering multiple episode of cellulitis requiring IV antibiotics, failed outpatient antibiotic therapy: Need IV antibiotics, significant area of cellulitis need close monitoring, blood culture pending Quality Stroke Does the patient have a stroke diagnosis?: No VTE Prior VTE?: No VTE Risk Level:: Medical - moderate - high VTE Device Contraindication: N/A - Device Ordered VTE Drug Contraindication: N/A - Med Ordered
[2024-07-04 16:04] LABS: Vancomycin Random 8.9 mcg/mL (15-20)
[2024-07-04] MEDS: vancomycin HCL 1,250 MG in 0.9 % Sodium Chloride 250 ML 166.67 MG IV (16:20)
[2024-07-04] MEDS: cefTRIAXone sodium 2 GM VIAL IVPUSH (16:20)
[2024-07-04 19:34] VITALS: BP 115/77; PULSE 88; RESP 20; TEMP 37.1; O2SAT 96
[2024-07-04] MEDS: Atorvastatin Calcium 10 MG TABLET PO (20:33)
[2024-07-04] MEDS: Escitalopram Oxalate 20 MG TABLET PO (20:33)
--- NOTE | 2024-07-04 22:41 | P.CNID_ITS ---
History of Present Illness Data of Consult Service Date: 07/04/24 Requesting physician: Keri Johnson Primary Care Provider: Ney Fermin MD HPI Reason for consult: RUE cellulitis She presents with blister right index finger. She has had this started three days ago. She has no fever or chills. She has been on Keflex and Bactrim and no better. She has redness going up arm. Review of Systems 2 Review of Systems: Yes all other systems are reviewed and are negative PMFSH Past Medical History Medical History Tubular adenoma of colon Anxiety Depression OCD (obsessive compulsive disorder) ADHD Asthma Dislocation of fifth toe, right, closed Cervical spondylosis Pneumothorax Cellulitis Pneumonia Tuberculosis Hepatitis Family History Family History Mother Breast cancer Anxiety Depression Substance use disorder Father Mental health disorder Paternal Grandmother Breast cancer Family history: reviewed and not pertinent Surgical History Surgical History Normal esophagogastroduodenoscopy (EGD) Hx of colonoscopy (~2013) S/P lumpectomy, left breast [place] teeth extracted H/O: hysterectomy Social History Social History Household Members: Family Housing: House Are you a primary day care assistant to a significant other at home: No Do you presently have visiting nurse or other home services: No Alcohol intake: former Patient Tobacco Use Status: Current everyday Tobacco user Tobacco use type: Cigarette Cigarette Packs Per Day: 10 Cigarettes Per Day: 10 Smoked in Last 30 Days: Yes e-Cigarette/Vaping Use: Never Used Second Hand Smoke Exposure: Yes Use of substances other than those prescribed or required for medical reasons: Yes Substance Use Type: Marijuana Substance Use Type Other:: Suboxone Substance Use Frequency: Daily Last Used Substance: Hours (ago) Currently Displaying Signs/Symptoms of Drug Intoxication Withdrawal: No Do you feel safe in your current relationship?: Yes Special nick needs: Yes Special nick accommodation details: congregation Advance Directives: No Advance Directives Information Provided: No Do you have a plan to hurt others: No Plan Recently lost weight without trying: No Nutrition Risks: No Nutritional Risk Patient : No : No Poor oral hygiene: No service: No Current occupational status: employed 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 Cognitive needs: No Hearing needs: No Vision needs: Yes (Patient wears glasses) Meds Allergies Allergy/AdvReac Type Severity Reaction Status Date / Time benzoin Allergy Intermediate Rash Verified 07/03/24 12:02 povidone-iodine Allergy Intermediate Rash Verified 07/03/24 12:02 buspirone [From BuSpar] AdvReac Mild anxiety, Verified 07/03/24 12:02 jittery steri strips Allergy Mild burning Uncoded 07/03/24 12:02 skin Active Medications: Current Medications Acetaminophen (Acetaminophen 325 Mg Tablet) 650 mg PO Q6H PRN PRN Reason: Pain, Mild 1-3,fever,headache Last Admin: 07/04/24 20:29 Dose: 650 mg Albuterol Sulfate (Albuterol Sulfate 90 Mcg 8 Gm Inhaler) 2 puff INHALE Q4H PRN PRN Reason: sob Atorvastatin Calcium (Atorvastatin Calcium 10 Mg Tablet) 10 mg PO BEDTIME [facility] Last Admin: 07/04/24 20:33 Dose: 10 mg Buprenorphine/Naloxone (Buprenorphine/Naloxone 2/0.5mg Film) 0.5 film SUBLINGUAL DAILY [facility] Last Admin: 07/04/24 09:48 Dose: 0.5 film Calcium Carbonate (Calcium Carbonate 750 Mg Tab.Chew) 750 mg PO Q4H PRN PRN Reason: Heartburn Ceftriaxone Sodium (Ceftriaxone Sodium 2 Gm Vial) 2 gm IVPUSH Q24H [facility] Last Admin: 07/04/24 16:20 Dose: 2 gm Escitalopram Oxalate (Escitalopram Oxalate 20 Mg Tablet) 20 mg PO BEDTIME [facility] Last Admin: 07/04/24 20:33 Dose: 20 mg Vancomycin HCl 1,250 mg/ (Sodium Chloride) 250 mls @ 166.667 mls/hr IV Q12H [facility] Last Infusion: 07/04/24 17:57 Dose: Infused Magnesium Hydroxide (Milk Of Magnesia 30 Ml Oral.Susp) 30 ml PO DAILY PRN PRN Reason: Constipation Melatonin (Melatonin 3 Mg Tablet) 6 mg PO BEDTIME PRN PRN Reason: Insomnia Pt Owned Med ( Atomoxetine 40mg Capsules) 1 each PO DAILY [facility] Pantoprazole Sodium (Pantoprazole Sodium 20 Mg Tablet.Dr) 20 mg PO DAILY@0630 [facility] Pharmacy Consult (Consult Rx Vancomycin Dosing) 1 each MISCELLANE DAILY PRN PRN Reason: Consult order Prazosin HCl (Prazosin Hcl 1 Mg Capsule) 1 mg PO BID PRN; Protocol PRN Reason: anxiety Sodium Chloride (0.9 % Sodium Chloride Flush 3 Ml Syringe) 3 ml IVFLUSH QSHIFT [facility] Last Admin: 07/04/24 20:33 Dose: 3 ml Home Medications ?Medication ?Instructions ?Recorded ?Confirmed ?Last Taken ?Type buprenorphine 2 mg-naloxone 0.5 mg 0.5 film buccal DAILY 07/12/23 07/03/24 07/02/24 History sublingual film (Suboxone) escitalopram oxalate 20 mg tablet 20 mg PO BEDTIME 07/12/23 07/03/24 07/02/24 History (Lexapro) acetylcysteine 600 mg capsule (NAC) 1,200 mg PO BID 12/05/23 07/03/24 07/03/24 History atomoxetine 40 mg capsule 40 mg PO DAILY 07/02/24 07/03/24 07/02/24 History acetaminophen 325 mg tablet 650 mg PO Q6H PRN Pain 07/03/24 07/03/24 Unknown History atorvastatin 10 mg tablet 10 mg PO BEDTIME 07/03/24 07/03/24 07/02/24 History pantoprazole 20 mg tablet,delayed 20 mg PO DAILY@0630 07/03/24 07/03/24 07/02/24 History release prazosin 1 mg capsule 1 mg PO BID PRN anxiety 07/03/24 07/03/24 Unknown History Physical Exam 2 Vital Signs: Vital Signs: Last Vital Signs Temp 98.8 F 07/04/24 19:34 Pulse 88 07/04/24 19:34 Resp 20 07/04/24 19:34 BP 115/77 07/04/24 19:34 Pulse Ox 96 07/04/24 19:34 O2 Del Method Room Air 07/04/24 19:34 BMI result Body Mass Index 24.5 Const: General: cooperative HEENT: Head: Yes normal to inspection Face and sinus: Yes normal facial exam Mouth: Normal oral and palatal mucosa present Teeth and gingiva: d entition normal Eyes: General: appearance normal, both eyes and all related structures P upils: Equal, round and reactive pupils present Resp: Effort & Inspection: normal respiratory effort Cardio: Rate: regular rate Rhythm: regular rhythm GI: Palpation (GI): Soft to palpation and nontender : General: Yes no CVA tenderness Back/Spine/Pelvis: Back: no CVA tenderness Skin: General skin exam: no rashes or lesions noted Neuro: General: moves all extremities Cranial nerves: Yes Equal, round and reactive pupils present Extrem: Other: blister right index finger General: Yes normal to inspection Psych: Appearance: grossly normal Results Labs 07/03/24 12:22 07/04/24 07:17 Labs: BMP 07/04/24 07:17 Creatinine 0.69 Microbiology Microbiology Results: Microbiology 07/03/24 15:18 Blood - Venous Blood Culture - Preliminary No growth after 24 hours. 07/03/24 12:22 Blood - Venous Blood Culture - Preliminary No growth after 24 hours. Assessment and Plan (1) Cellulitis: Qualifiers: Laterality: right Site of cellulitis: extremity Site of cellulitis of extremity: upper extremity Qualified Code(s): L03.113 - Cellulitis of right upper limb Status: Acute (2) Lymphangitis: Status: Acute (3) Herpetic ronny: Status: Acute Plan possible herpetic ronny as starter for problem Continue Ceftriaxone and Vancomycin ,await blood cultures.duration to be determined. May culture blister area
[2024-07-05 03:21] VITALS: BP 117/59; PULSE 85; RESP 18; TEMP 36.8; O2SAT 97
[2024-07-05] MEDS: Pantoprazole Sodium 20 MG TABLET.DR PO (05:37)
[2024-07-05] MEDS: vancomycin HCL 1,250 MG in 0.9 % Sodium Chloride 250 ML 166.67 MG IV (05:42)
[2024-07-05 07:12] LABS: Creatinine Clr Calc Pharmacy 88.1; Estimated Glomerular Filt Rate > 60
[2024-07-05 07:22] VITALS: BP 119/81; PULSE 74; RESP 18; TEMP 36.4; O2SAT 98
[2024-07-05] MEDS: Acetaminophen 325 MG TABLET 650 MG PO ×2 (08:01→20:44)
[2024-07-05] MEDS: 0.9 % Sodium Chloride Flush 3 ML SYRINGE IVFLUSH ×3 (08:04→20:40)
[2024-07-05] MEDS: [UNRECOGNIZED DRUG - OTHER] 1 EACH PO (09:43)
--- NOTE | 2024-07-05 11:18 | HO.PM.IMPN ---
Subjective Subjective Date of Service: 07/05/24 Interval History: arm cellulitis Review of Systems arm erythema seem better still has hand swelling/erythema Physical Exam Vital Signs: Vital Signs: Last Vital Signs Temp 97.5 F 07/05/24 07:22 Pulse 74 07/05/24 07:22 Resp 18 07/05/24 07:22 BP 119/81 07/05/24 07:22 Pulse Ox 98 07/05/24 07:22 O2 Del Method Room Air 07/05/24 07:22 BMI result Body Mass Index 24.5 Appearance: Alert.? Oriented X3.? cvs: rrr, [id number] . res: clear to auscultation ,no rhonchii or wheezing abd: no rebound or guarding ,nt, bs present. ext pulses present , no cyanosis . skin:hand pain/erythema/swellin, blister on the finger . neuro: axo3 , nonfocal. Objective Data Active Medications Acetaminophen (Acetaminophen 325 Mg Tablet) 650 mg PO Q6H PRN PRN Reason: Pain, Mild 1-3,fever,headache Last Admin: 07/05/24 08:01 Dose: 650 mg Documented By: SELENE Albuterol Sulfate (Albuterol Sulfate 90 Mcg 8 Gm Inhaler) 2 puff INHALE Q4H PRN PRN Reason: sob Atorvastatin Calcium (Atorvastatin Calcium 10 Mg Tablet) 10 mg PO BEDTIME [facility] Last Admin: 07/04/24 20:33 Dose: 10 mg Documented By: BARAK Buprenorphine/Naloxone (Buprenorphine/Naloxone 2/0.5mg Film) 0.5 film SUBLINGUAL DAILY [facility] Last Admin: 07/05/24 08:07 Dose: Not Given Documented By: SELENE Non-Admin Reason: Patient Refused Calcium Carbonate (Calcium Carbonate 750 Mg Tab.Chew) 750 mg PO Q4H PRN PRN Reason: Heartburn Ceftriaxone Sodium (Ceftriaxone Sodium 2 Gm Vial) 2 gm IVPUSH Q24H [facility] Last Admin: 07/04/24 16:20 Dose: 2 gm Documented By: ELIDA Escitalopram Oxalate (Escitalopram Oxalate 20 Mg Tablet) 20 mg PO BEDTIME [facility] Last Admin: 07/04/24 20:33 Dose: 20 mg Documented By: BARAK Vancomycin HCl 1,250 mg/ (Sodium Chloride) 250 mls @ 166.667 mls/hr IV Q12H [facility] Last Infusion: 07/05/24 07:38 Dose: Infused Documented By: SELENE Magnesium Hydroxide (Milk Of Magnesia 30 Ml Oral.Susp) 30 ml PO DAILY PRN PRN Reason: Constipation Melatonin (Melatonin 3 Mg Tablet) 6 mg PO BEDTIME PRN PRN Reason: Insomnia Pt Owned Med ( Atomoxetine 40mg Capsules) 1 each PO DAILY [facility] Last Admin: 07/05/24 09:43 Dose: 1 each Documented By: SELENE Pantoprazole Sodium (Pantoprazole Sodium 20 Mg Tablet.) 20 mg PO DAILY@0630 [facility] Last Admin: 07/05/24 05:37 Dose: 20 mg Documented By: BARAK Pharmacy Consult (Consult Rx Vancomycin Dosing) 1 each MISCELLANE DAILY PRN PRN Reason: Consult order Prazosin HCl (Prazosin Hcl 1 Mg Capsule) 1 mg PO BID PRN; Protocol PRN Reason: anxiety Sodium Chloride (0.9 % Sodium Chloride Flush 3 Ml Syringe) 3 ml IVFLUSH QSHIFT [facility] Last Admin: 07/05/24 08:04 Dose: 3 ml Documented By: SELENE Labs 07/03/24 12:22 07/05/24 06:00 Labs: Laboratory Results - last 24 hr 07/04/24 07/05/24 14:57 06:00 Hold Purple Top SEE NOTE Estim Creat Clear Calc 88.1 Estimated GFR > 60 Random Vancomycin 8.9 L Microbiology Microbiology Results: Microbiology 07/03/24 15:18 Blood Culture - Preliminary Blood - Venous No growth after 24 hours. 07/03/24 12:22 Blood Culture - Preliminary Blood - Venous No growth after 24 hours. Assessment and Plan (1) Cellulitis: Status: Acute (2) Lymphangitis: Status: Acute Assessment and Plan: 48y/o F recurrent finger infection x5d. She has a history of cellulitis, lymphangitis, anxiety, depression, OCD, ADHD, asthma(mild intermittent),and past MRSA infections ,hx of ivdu (she says she off ivdu last 15 years): she went to urgent care for blistering and swelling primarily on the right index finger/hand ,arm erythema. Right arm cellulitis/ lymphangitis: No leukocytosis, blood culture pending esr normal , crp mild elevated Currently not septic. Continue IV vanco and ceftriaxone, vanco trough monitoring as per pharmacy ID evaluation anxiety/depression: continue atomoxetine ,estalopram asthma(mild intermittent): stable continue prn albuterol DVT prophylaxis: Low risk, ambulation. ongoing need -considering multiple episode of cellulitis requiring IV antibiotics, failed outpatient antibiotic therapy: Need IV antibiotics, significant area of cellulitis need close monitoring, blood culture pending Quality Stroke Does the patient have a stroke diagnosis?: No VTE Prior VTE?: No VTE Risk Level:: Medical - moderate - high VTE Device Contraindication: N/A - Device Ordered VTE Drug Contraindication: N/A - Med Ordered
[2024-07-05 15:38] VITALS: BP 129/84; PULSE 85; RESP 16; TEMP 36.2; O2SAT 98
[2024-07-05 16:17] LABS: Vancomycin Random 14.5 mcg/mL (15-20)
[2024-07-05] MEDS: vancomycin HCL 1,000 MG in 0.9 % Sodium Chloride 250 ML 270 MG IV (16:45)
[2024-07-05] MEDS: cefTRIAXone sodium 2 GM VIAL IVPUSH (16:45)
[2024-07-05 19:26] VITALS: BP 125/78; PULSE 75; RESP 18; TEMP 36.3; O2SAT 98
[2024-07-05] MEDS: Atorvastatin Calcium 10 MG TABLET PO (20:40)
[2024-07-05] MEDS: Escitalopram Oxalate 20 MG TABLET PO (20:40)
[2024-07-06 03:34] VITALS: BP 120/70; PULSE 64; RESP 18; TEMP 36.8; O2SAT 98
[2024-07-06] MEDS: vancomycin HCL 1,000 MG in 0.9 % Sodium Chloride 250 ML 270 MG IV (05:53)
[2024-07-06] MEDS: Pantoprazole Sodium 20 MG TABLET.DR PO (05:53)
[2024-07-06 06:34] LABS: Creatinine Clr Calc Pharmacy 92.2; Estimated Glomerular Filt Rate > 60
[2024-07-06 07:17] VITALS: BP 135/81; PULSE 85; RESP 16; TEMP 36.5; O2SAT 98
[2024-07-06] MEDS: [UNRECOGNIZED DRUG - OTHER] 1 EACH PO (07:31)
[2024-07-06] MEDS: 0.9 % Sodium Chloride Flush 3 ML SYRINGE IVFLUSH (07:32)
--- NOTE | 2024-07-06 10:36 | P.DS_ITS ---
DS: Providers Provider Date of Service: 07/06/24 Date of admission: 07/03/24 16:31 Date of discharge: 07/06/24 Primary care physician: Ney Fermin MD Consults: 07/03/24 15:55 Consult to Infectious Diseases Routine Consulting Provider[place] [facility] Reason for consultation: arm cellulitis /hx ivdu Has provider been notified: No 07/06/24 00:36 Consult to Wound Care Routine Reason for consultation: blister R index finger, cellulitis to hand Attending physician on discharge: Keri Johnson Discharging clinician: Keri Johnson DS: Diagnosis Discharge Diagnosis (1) Cellulitis: Status: Acute (2) Lymphangitis: Status: Acute DS: Summary Hospital Course Hospital Course: HPI:48y/o F recurrent finger infection x5d. She has a history of cellulitis, lymphangitis, and past MRSA infections ,hx of ivdu (she says she off ivdu last 15 years): she went to urgent care for blistering and swelling primarily on the right index finger/hand ,arm erythema following minor skin injuries and potential environmental exposure. Burning symptoms began Sunday after recent hand trauma, with subsequent blister worsening the following day. Previous episodes have led to significant finger enlargement and streaking, leading to hospital admissions. The patient works in a [id number] environment and utilizes artificial nails to mitigate compulsive biting due to OCD. Patient initially tried to use Neosporin at home which did not help. Then subsequently went to walk-in clinic because hand and upper extremity were getting more warm and erythematous. Lab imaging reviewed: CBC seems fine mild hypernatremia on bmp esr normal crp :1.47 Patient was given vanco and ceftriaxone by ED, requested admission for upper extremity cellulitis. Denies any new complaint of chest pain or shortness of breath or abdominal pain or fever or chills or nausea or vomiting. Has some hand pain and erythema of hand going all the way up to the forearm and even to the forearm area. Hospital course: 48y/o F recurrent finger infection x5d. She has a history of cellulitis, lymphangitis, anxiety, depression, OCD, ADHD, asthma(mild intermittent),and past MRSA infections ,hx of ivdu (she says she off ivdu last 15 years): she went to urgent care for blistering and swelling primarily on the right index finger/hand ,arm erythema: Patient was started on IV ceftriaxone and vancomycin, blood cultures sent. With the above management patient cellulitis seems to be improved significantly. Patient will be going home on p.o. antibiotics for days. Infectious Disease saw the patient:possible herpetic ronny as starter for problem-since cellulitis is improved significantly : will switch to po linezolid and valtrex. Patient will benefit from outpatient pcp follow up and consider Dermatology follow-up as per PCP. plan: Linezolid 600 mg p.o. b.i.d. for 5 days. Valtrex 1 gm [id number] stop ceflalexin and bactrim. Above management discussed with the patient in detail length she understand and in agreement with the above plan, time spent 40 minute. Time Attestation Total time managing care of this patient today: 40 mintues. Discharge Coordination Time (in mins): 40 min Quality: Safe Use of Opioids Does Pt have an Active Cancer Diagnosis on the Problem List?: No Quality: Stroke Does the patient have a stroke diagnosis?: No Physical Exam Vital Signs: Vital Signs: Last Vital Signs Temp 97.7 F 07/06/24 07:17 Pulse 85 07/06/24 07:17 Resp 16 07/06/24 07:17 BP 135/81 07/06/24 07:17 Pulse Ox 98 07/06/24 07:17 O2 Del Method Room Air 07/06/24 07:17 BMI result Body Mass Index 24.5 Appearance: Alert.? Oriented X3.? cvs: rrr, [id number] . res: clear to auscultation. abd:soft,nd ,nt, bs present. ext pulses present , no cyanosis . skin:blister on the finger, erythema/pain -seems improved . neuro: axo3 , nonfocal. DS: Data Data Completed and Pending Labs on day of discharge: Laboratory Results - last 24 hr 07/05/24 07/06/24 07/06/24 15:11 05:47 05:48 Hold Purple Top SEE NOTE Creatinine 0.63 Estim Creat Clear Calc 92.2 Estimated GFR > 60 Random Vancomycin 14.5 L Preliminary micro results at discharge 07/03/24 15:18 Blood Culture - Preliminary Blood - Venous No growth after 48 hours. 07/03/24 12:22 Blood Culture - Preliminary Blood - Venous No growth after 48 hours. Discharge Plan Discharge Anticipated Discharge Date/Time: 07/06/24 08:50 Patient Disposition: Home, Self-Care Discharge Diagnosis: arm cellulitis Referrals: Ney Fermin MD [Primary Care Provider] - 1 Week Discharge Medications: New valacyclovir 1 gram Tablet 1,000 mg PO BID Qty: 14 0RF linezolid 600 mg Tablet 600 mg PO BID Qty: 10 0RF Continued prazosin 1 mg capsule 1 mg PO BID PRN (Reason: anxiety) atorvastatin 10 mg tablet 10 mg PO BEDTIME pantoprazole 20 mg tablet,delayed release (DR/EC) 20 mg PO DAILY@0630 acetaminophen 325 mg Tablet 650 mg PO Q6H PRN (Reason: Pain) buprenorphine-naloxone [Suboxone] 2-0.5 mg film 0.5 film buccal DAILY escitalopram oxalate [Lexapro] 20 mg tablet 20 mg PO BEDTIME acetylcysteine [NAC] 600 mg capsule 1,200 mg PO BID albuterol sulfate [Ventolin HFA] 90 mcg/actuation HFA aerosol inhaler 2 puff inhalation Q4-6H PRN (Reason: shortness of breath or wheezing) 30 Days Qty: 8.5 4RF atomoxetine 40 mg capsule 40 mg PO DAILY Discontinued cephalexin 500 mg capsule 500 mg PO Q6H Qty: 28 0RF sulfamethoxazole-trimethoprim [Bactrim DS] 800-160 mg tablet 1 tab PO Q12H Qty: 14 0RF Discharge Orders: Discharge Order (Routine); Ordered 07/06/24 Ordered By: Keri Johnson Diet: Advance to usual diet Activity on Discharge: As tolerated Stand Alone Forms: Patient Portal Discharge page Print Language: Bermudian Care Plan Goals: 48y/o F recurrent finger infection x5d. She has a history of cellulitis, lymphangitis, anxiety, depression, OCD, ADHD, asthma(mild intermittent),and past MRSA infections ,hx of ivdu (she says she off ivdu last 15 years): she went to urgent care for blistering and swelling primarily on the right index finger/hand ,arm erythema: Patient was started on IV ceftriaxone and vancomycin, blood cultures sent. With the above management patient cellulitis seems to be improved significantly. Patient will be going home on p.o. antibiotics for days. Infectious Disease saw the patient: Patient will benefit from outpatient Dermatology follow-up as per PCP. Health Concerns: As above. Linezolid 600 mg p.o. b.i.d. for 5 days. Valtrex 1 gm [id number] stop ceflalexin and bactrim. Plan of Treatment: As above. Assessment: As above. Discharge Date/Time: 07/06/24 11:24
--- NOTE | 2024-07-06 10:40 | MHC.CM.PN ---
Patient is discharged to home today self care. Patient has arranged for a ride home.
[2024-07-06] MEDS: Linezolid 600 MG TABLET PO (11:20)
[2024-07-06] MEDS: valACYclovir HCL 1,000 MG TABLET 1000 MG PO (11:20)
== END 2024-07-06 11:24 | disposition home or self-care (01) | DRG 383 ==
LOC: HO.ED 16:38 → HO.EDOVER 18:17 → HO.S3 07-04 12:00
PROVIDERS: Registered Nurse Emergency; Admitting Provider Internal Medicine; Emergency Provider Emergency Medicine; PCP Family Medicine; Visit Provider Internal Medicine
DX: L03.113 Cellulitis of right upper limb (principal); F11.20 Opioid dependence, uncomplicated; F41.9 Anxiety disorder, unspecified; F32.A Depression, unspecified; J45.20 Mild intermittent asthma, uncomplicated; F17.210 Nicotine dependence, cigarettes, uncomplicated; Z71.6 Tobacco abuse counseling; Z86.14 Personal history of Methicillin resistant Staphylococcus aureus infection; Z79.899 Other long term (current) drug therapy
CPT/HCPCS: 36415; 80053; 80202; 80307; 82565; 83605; 85025; 85652; 86140; 87040; 99285; J0696; J3370; J3371

== ENCOUNTER → 2024-07-03 16:31 | Outpatient (BNV) | payer OTHER, SELFPAY | PROVIDERS: Admitting Provider Internal Medicine; Emergency Provider Emergency Medicine; PCP Family Medicine; Visit Provider Internal Medicine | DX: L03.113 Cellulitis of right upper limb (principal); B00.89 Other herpesviral infection | CPT/HCPCS: 99222 ==

== ENCOUNTER → 2024-07-03 16:31 | Outpatient (BNV) | payer OTHER, SELFPAY | PROVIDERS: Admitting Provider Internal Medicine; Emergency Provider Emergency Medicine; PCP Family Medicine; Visit Provider Internal Medicine | DX: L03.113 Cellulitis of right upper limb (principal); I89.1 Lymphangitis | CPT/HCPCS: 99222; 99232; 99239 ==

== ENCOUNTER 2024-07-08 09:01 | Outpatient (AMB) | payer OTHER, SELFPAY ==
--- NOTE | 2024-07-08 09:10 | MHC.PC.OV ---
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 Was started on IV ceftriaxone, vancomycin. Cellulitis had improved significantly. Had stopped ceflalexin and bactrim, prescribed Valtrex, linezolid. TCM TCM Information Date of Discharge 07/05/24 Discharged From [facility] Interactive Contact Date (Reference documentation from this date) 07/08/24 [facility]LY [facility] Medical History Tubular adenoma of colon Anxiety Depression OCD (obsessive compulsive disorder) ADHD Asthma Dislocation of fifth toe, right, closed Cervical spondylosis Pneumothorax Cellulitis Pneumonia Tuberculosis Hepatitis Surgical History Normal esophagogastroduodenoscopy (EGD) Hx of colonoscopy (~2013) S/P lumpectomy, left breast Sassafr[place] teeth extracted H/O: hysterectomy Family History Mother Breast cancer Anxiety Depression Substance use disorder Father Mental health disorder Paternal Grandmother Breast cancer Social History Household Members: Family Both parents involved: No Caregiver staying overnight: No Housing: House Are you a primary career center advisor to a significant other at home: No Do you presently have visiting nurse or other home services: No 75 years or older and lives alone: No Alcohol intake: former Patient Tobacco Use Status: Current everyday Tobacco user Tobacco use type: Cigarette Cigarette Packs Per Day: 10 Cigarettes Per Day: 10 e-Cigarette/Vaping Use: Never Used Second Hand Smoke Exposure: Yes Substance Use Type: Marijuana Special nick needs: Yes Special nick accommodation details: restorationist service: No Current occupational status: employed 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 Kingston Neff, Tyesha Silver, Roberto Tamayo and colleagues, with an educational yovany from [employer]. Review of Systems Const Denies chills, Denies fatigue, Denies fever(s), Denies headache(s) and Denies weakness ENT Denies dizziness and Denies headache(s) Card Denies dyspnea Resp Denies cough, Denies dyspnea, Denies wheezing and Denies other (shortness of breath) Musc Denies numbness and Denies tingling Neuro Denies dizziness, Denies headache(s), Denies numbness, Denies tingling and Denies weakness Psych Denies anxiety and Denies depression Endo Denies fatigue Aller/Immun Denies wheezing Physical exam (Primary Care) Vital Signs: Last Vital Signs Temp 98.4 F 07/08/24 09:16 Pulse 123 H 07/08/24 09:16 Resp 16 07/08/24 09:16 BP 102/60 07/08/24 09:16 Pulse Ox 96 07/08/24 09:16 Oxygen Delivery Method Room Air 07/08/24 09:16 BMI result Body Mass Index 23.7 Tobacco/Smoking Status: Tobacco use Status Tobacco use date assessed 07/01/24 07/08/24 09:12 Patient Tobacco Use Status Current everyday Tobacco 07/08/24 09:12 Tobacco use type Cigarette 07/08/24 09:12 e-Cigarette/Vaping Use Never Used 07/08/24 09:12 Thrive Assessment: Date of Thrive Assessment Date Thrive assessed 04/03/25 04/08/25 09:12 Const General: well developed; No acute distress Nutritional Appearance: well nourished Orientation/consciousness: patient oriented x3 HENMT Head: Yes normocephalic and Yes atraumatic Eyes General: appearance normal, both eyes and all related structures Pupils: Equal, round and reactive pupils present EOM: EOMs intact bilaterally Resp Effort & Inspection: normal respiratory effort Neuro General: patient oriented x3 and gait normal Cranial nerves: Yes Equal, round and reactive pupils present Extrem Other: R index finger w/ abscess on R index finger. No surrounding erythema. Psych Affect: normal affect Coding Level of Care Code Est Pt Level 3 (08242) Diagnoses Cellulitis of right upper extremity L03.113 Laterality: right Site of cellulitis: extremity Site of cellulitis of extremity: upper extremity Assessment & Plan Assessment & Plan (1) Cellulitis: Code(s): L03.90 - Cellulitis, unspecified Category: Medical Qualifiers: Laterality: right Site of cellulitis: extremity Site of cellulitis of extremity: upper extremity Qualified Code(s): L03.113 - Cellulitis of right upper limb Plan: So?48-year-old?IVDU with?cellulitis?and?lymphangitis. At Urgent Care she was given Bactrim & Keflex. Symptoms?worsened?and?patient?went?to?the?ED At ED, Given IV Ceftriaxone & Vancomycin. Symptoms?improve?significantly. Likely?herpetic?ronny?with?subsequent?opportunistic?bacterial?infection?and?cellulitis/lymphangitis. Slowly?improving Continue discharge?medications. Discharged on: valacyclovir 1 gram Tablet 1,000 mg PO BID Qty: 14 0RF linezolid 600 mg Tablet 600 mg PO BID Qty: 10 0RF Patient?notes?that?she?gets?similar?symptoms?on?seen?finger?every?year As?above,?may?be?herpetic?ronny?with?increased?stress?causing?outbreaks. Will?refer?to?Infectious?Disease Orders: Referrals Infectious Disease Referral L08.9 - Local infection of the skin and subcutaneous tissue, unspecified
[2024-07-08 09:16] VITALS: BP 102/60; PULSE 123; RESP 16; TEMP 36.9; O2SAT 96; BMI 23.7
== END 2024-07-08 09:41 | disposition home or self-care (01) ==
LOC: HO.HMCFM 09:01
PROVIDERS: PCP Family Medicine; Visit Provider Family Medicine
DX: L03.113 Cellulitis of right upper limb (principal)

== ENCOUNTER → 2024-07-08 09:01 | Outpatient (BNVA) | payer OTHER, SELFPAY | PROVIDERS: PCP Family Medicine; Visit Provider Family Medicine | DX: L03.113 Cellulitis of right upper limb (principal); F17.210 Nicotine dependence, cigarettes, uncomplicated | CPT/HCPCS: 99212 ==

== ENCOUNTER 2024-07-11 09:25 | Outpatient (REF) | payer OTHER, SELFPAY ==
[2024-07-11 12:10] LABS: Alanine Aminotransferase 112 U/L (0-31); Albumin Level 4.1 g/dL (3.5-5.0); Alkaline Phosphatase 80 U/L (39-117); Anion Gap 9 (12-20); Aspartate Amino Transferase 67 U/L (5-31); Bilirubin Total 0.8 mg/dL (0.0-1.0); Blood Urea Nitrogen 15 mg/dL (9-16); Calcium 9.3 mg/dL (8.4-10.2); Carbon Dioxide 26 mmol/L (22-29); Chloride 109 mmol/L (96-108); Cholesterol 141 mg/dL (<200); Estimated Glomerular Filt Rate > 60; Glucose Fasting 101 mg/dL (60-99); HDL Cholesterol 45 mg/dL (>40); LDL Cholesterol Calculated 82 mg/dL (<100); Potassium 4.1 mmol/L (3.3-5.1); Sodium 140 mmol/L (135-145); Total Protein 6.8 g/dL (6.5-8.0); Triglycerides 71 mg/dL (<150)
[2024-07-11 12:30] LABS: Vitamin D 25-OH Total 29.9 ng/mL (>30)
== END 2024-07-11 09:26 | disposition home or self-care (01) ==
LOC: HO.WFDLDS 09:25
PROVIDERS: Visit Provider Family Medicine
DX: Z00.00 Encounter for general adult medical examination without abnormal findings (principal); R73.01 Impaired fasting glucose; E55.9 Vitamin D deficiency, unspecified; R79.89 Other specified abnormal findings of blood chemistry; E78.5 Hyperlipidemia, unspecified
CPT/HCPCS: 36415; 80053; 80061; 82306

== ENCOUNTER 2024-07-16 14:02 | Outpatient (AMB) | payer OTHER, SELFPAY ==
--- NOTE | 2024-07-16 14:16 | MHC.PC.OV ---
Vital Signs 07/16/24 14:17 Height 5 ft 3 in Weight 137 lb 2 oz BMI 24.3 BP 110/62 Blood Pressure Location Lt brachial Position Sitting Respiration 16 Pulse 109 H Pulse Source Pulse Oximeter Temp 98.2 F Temp Source Oral Pulse Oximetry (%) 99 Oxygen Delivery Method Room Air Intake Visit Reasons: hyperlipidemia and also follow-up liver enzymes Intake Note: patient is scheduled for follow up labs Rock Dust Sprayer Required: No Allergies benzoin Allergy (Intermediate, Verified 07/16/24 14:16) Rash povidone-iodine Allergy (Intermediate, Verified 07/16/24 14:16) Rash buspirone [From BuSpar] Adverse Reaction (Mild, Verified 07/16/24 14:16) anxiety, jittery steri strips Allergy (Mild, Uncoded 07/03/24 12:02) burning skin Tobacco use date assessed: 07/01/24 Dental Screening Dental Screen Date: 07/01/24 HPI hyperlipidemia and also follow-up liver enzymes HPI Details 48 y/o female presents to f/u HLD, liver enzymes. Labs drawn 07/11/24. Reviewed labs with pt. Elevated liver enzymes - AST 67, ALT 112. Triglycerides 71. TC 141. LDL 82. HDL 45. She is on artovastatin 10mg. Vitamin D mildly low at 29.9. Elevated fasting glucose of 101. PFSH Medical History Tubular adenoma of colon Anxiety Depression OCD (obsessive compulsive disorder) ADHD Asthma Dislocation of fifth toe, right, closed Cervical spondylosis Pneumothorax Cellulitis Pneumonia Tuberculosis Hepatitis Surgical History Normal esophagogastroduodenoscopy (EGD) Hx of colonoscopy (~2013) S/P lumpectomy, left breast [place] teeth extracted H/O: hysterectomy Family History Mother Breast cancer Anxiety Depression Substance use disorder Father Mental health disorder Paternal Grandmother Breast cancer Social History Household Members: Family Both parents involved: No Caregiver staying overnight: No Housing: House Are you a primary director of healthcare systems to a significant other at home: No Do you presently have visiting nurse or other home services: No 75 years or older and lives alone: No Alcohol intake: former Patient Tobacco Use Status: Current everyday Tobacco user Tobacco use type: Cigarette Cigarette Packs Per Day: 10 Cigarettes Per Day: 10 e-Cigarette/Vaping Use: Never Used Second Hand Smoke Exposure: Yes Substance Use Type: Marijuana Special nick needs: Yes Special nick accommodation details: church service: No Current occupational status: employed 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 Cognitive needs: No Hearing needs: No Vision needs: Yes (Patient wears glasses) Questionnaire Thrive Questionnaire Date Thrive assessed: 04/10/24 I am a: Patient What is your living situation today?: I have a steady place to live Within the past 12 months, did the food you bought not last and you didn't have the money to get more?: Never true Within the past 12 months, did you worry whether your food would run out before you got money to buy more?: Never true Do you have trouble paying for medicines?: Yes Do you have trouble getting transportation to medical appointments?: No Do you have trouble paying your heating and electricity bill?: No Do you have trouble taking care of your child, family member or friend?: No Do you have trouble with day-to-day activities such as bathing, preparing meals, shopping, managing finances, etc.?: No Are you currently unemployed and looking for a job?: No Are you interested in more education?: Yes Please select the resources that you would like help with: Paying for medicine Currently or been in a relationship where the following occur: I choose not to answer THRIVE Score: 0 CHEMA-7 AMB Questionnaire CHEMA-7 Date CHEMA - 7 assessed: 04/16/24 Source: Developed by Drs. Kingston Neff, Tyesha Silver, Roberto Tamayo and colleagues, with an educational yovany from [employer]. Review of Systems Const Denies chills, Denies fatigue, Denies fever(s), Denies headache(s) and Denies weakness ENT Denies dizziness and Denies headache(s) Card Denies dyspnea Resp Denies cough, Denies dyspnea, Denies wheezing and Denies other (shortness of breath) Musc Denies numbness and Denies tingling Neuro Denies dizziness, Denies headache(s), Denies numbness, Denies tingling and Denies weakness Psych Denies anxiety and Denies depression Endo Denies fatigue Aller/Immun Denies wheezing Physical exam (Primary Care) Vital Signs: Last Vital Signs Temp 98.2 F 07/16/24 14:17 Pulse 109 H 07/16/24 14:17 Resp 16 07/16/24 14:17 BP 110/62 07/16/24 14:17 Pulse Ox 99 07/16/24 14:17 Oxygen Delivery Method Room Air 07/16/24 14:17 BMI result Body Mass Index 24.3 Tobacco/Smoking Status: Tobacco use Status Tobacco use date assessed 07/01/24 07/16/24 14:18 Patient Tobacco Use Status Current everyday Tobacco 07/16/24 14:18 Tobacco use type Cigarette 07/16/24 14:18 e-Cigarette/Vaping Use Never Used 07/16/24 14:18 Thrive Assessment: Date of Thrive Assessment Date Thrive assessed 04/10/24 07/16/24 14:18 Currently or been in a relationship where the following occur: I choose not to answer Const General: well developed; No acute distress Nutritional Appearance: well nourished Orientation/consciousness: patient oriented x3 HENMT Head: Yes normocephalic and Yes atraumatic Eyes General: appearance normal, both eyes and all related structures Pupils: Equal, round and reactive pupils present EOM: EOMs intact bilaterally Resp Effort & Inspection: normal respiratory effort Auscultation: clear to auscultation bilaterally Cardio Rate: tachycardic Rhythm: regular rhythm Heart sounds: S1 normal heart sound present, S2 normal heart sound present, no gallops, no murmurs and no rubs Neuro General: patient oriented x3 and gait normal Cranial nerves: Yes Equal, round and reactive pupils present Psych Affect: normal affect Coding Level of Care Code Est Pt Level 4 (04297) Diagnoses Hyperlipidemia E78.5 Elevated liver enzymes R74.8 Recurrent infection of skin L08.9 Elevated fasting glucose R73.01 Tachycardia R00.0 Assessment & Plan Assessment & Plan (1) Hyperlipidemia: Code(s): E78.5 - Hyperlipidemia, unspecified Category: Medical Plan: Lipids?improved?on?atorvastatin Continue?current?medication (2) Elevated liver enzymes: Code(s): R74.8 - Abnormal levels of other serum enzymes Category: Medical Plan: Elevated?liver?enzymes. Recently?on?vancomycin Also?recently?had?prescribed?terbinafine?tablets?presumed?fungal?infection?but?patient?says?she?has?not?been?taking?this. Advised?her?not?to?take?this?liver?enzymes?are?elevated. Will?have?her?return?in?about?a?month?to?follow-up?liver?enzymes (3) Recurrent infection of skin: Code(s): L08.9 - Local infection of the skin and subcutaneous tissue, unspecified Category: Medical Plan: Improving s/p?antibiotics?and?valacyclovir Likely?herpetic?ronny She?has?an?appointment?with?infectious?disease?and?has?seen?before. (4) Elevated fasting glucose: Code(s): R73.01 - Impaired fasting glucose Category: Medical Plan: Mildly?elevated?fasting?blood?sugar Encouraged?diet?lower?in?sugars?and?starches Will?recheck?next?blood?draw (5) Tachycardia: Code(s): R00.0 - Tachycardia, unspecified Category: Medical Plan: Patient?appears?dehydrated?with?dry?mucous?membranes Has?had?recurrent?tachycardia - otherwise?asymptomatic. She?drinks?very?little?water?in?encouraged?increased?hydration. Orders: Orders Comprehensive [place]. Panel Fast Today R74.8 - Abnormal levels of other serum enzymes, Z00.00 - Encounter for general adult medical examination without abnormal findings Hemoglobin A1c Today R73.01 - Impaired fasting glucose
[2024-07-16 14:17] VITALS: BP 110/62; PULSE 109; RESP 16; TEMP 36.8; O2SAT 99; BMI 24.3
== END 2024-07-16 14:36 | disposition home or self-care (01) ==
LOC: HO.HMCFM 14:03
PROVIDERS: PCP Family Medicine; Visit Provider Family Medicine
DX: E78.5 Hyperlipidemia, unspecified (principal); R74.8 Abnormal levels of other serum enzymes; L08.9 Local infection of the skin and subcutaneous tissue, unspecified; R73.01 Impaired fasting glucose; R00.0 Tachycardia, unspecified

== ENCOUNTER → 2024-07-16 14:02 | Outpatient (BNVA) | payer OTHER, SELFPAY | PROVIDERS: PCP Family Medicine; Visit Provider Family Medicine | DX: E78.5 Hyperlipidemia, unspecified (principal); R74.8 Abnormal levels of other serum enzymes; L08.9 Local infection of the skin and subcutaneous tissue, unspecified; R73.01 Impaired fasting glucose; R00.0 Tachycardia, unspecified | CPT/HCPCS: 99212 ==

== ENCOUNTER 2024-08-12 08:51 | Outpatient (REF) | payer OTHER, SELFPAY ==
[2024-08-12 11:43] LABS: Estimated Average Glucose 94 mg/dL; Hemoglobin A1C 119.1782 umol/L; Hemoglobin A1c % 4.9 % (<6.0); Total Hemoglobin (HGBA1C) 3922.5059 umol/L
[2024-08-12 12:23] LABS: Anion Gap 12 (12-20)
[2024-08-12 12:24] LABS: Alanine Aminotransferase 27 U/L (0-31); Albumin Level 4.4 g/dL (3.5-5.0); Aspartate Amino Transferase 29 U/L (5-31); Bilirubin Total 0.6 mg/dL (0.0-1.0); Blood Urea Nitrogen 18 mg/dL (9-16); Calcium 9.4 mg/dL (8.4-10.2); Carbon Dioxide 22 mmol/L (22-29); Chloride 108 mmol/L (96-108); Estimated Glomerular Filt Rate > 60; Glucose Fasting 101 mg/dL (60-99); Potassium 4.1 mmol/L (3.3-5.1); Sodium 138 mmol/L (135-145); Total Protein 7.4 g/dL (6.5-8.0)
[2024-08-12 12:34] LABS: Alkaline Phosphatase 77 U/L (39-117)
== END 2024-08-12 08:52 | disposition home or self-care (01) ==
LOC: HO.WFDLDS 08:51
PROVIDERS: Visit Provider Family Medicine
DX: Z00.00 Encounter for general adult medical examination without abnormal findings (principal); B35.1 Tinea unguium; R73.01 Impaired fasting glucose
CPT/HCPCS: 36415; 80053; 83036

== ENCOUNTER 2024-08-20 10:24 | Outpatient (AMB) | payer OTHER, SELFPAY ==
--- NOTE | 2024-08-20 10:34 | MHC.PC.OV ---
Vital Signs 08/20/24 10:40 Height 5 ft 3 in Weight 130 lb 6 oz BMI 23.1 BP 102/60 Blood Pressure Location Rt brachial Position Sitting Respiration 16 Pulse 91 Pulse Source Pulse Oximeter Temp 98.3 F Temp Source Temporal Artery Scan Pulse Oximetry (%) 97 Oxygen Delivery Method Room Air Intake Visit Reasons: f/u elevated liver enzymes Intake Note: Noa presents in the office today for a follow up to elevated liver enzymes. Allergies benzoin Allergy (Intermediate, Verified 08/20/24 10:36) Rash povidone-iodine Allergy (Intermediate, Verified 08/20/24 10:36) Rash buspirone [From BuSpar] Adverse Reaction (Mild, Verified 08/20/24 10:36) anxiety, jittery steri strips Allergy (Mild, Uncoded 08/20/24 10:36) burning skin Medication List - Last Reconciled 08/20/24 by Ney Fermin MD acetaminophen 650 mg PO Q6H PRN acetylcysteine (NAC) 1,200 mg PO BID albuterol sulfate 90 mcg/actuation (Ventolin HFA) 2 puffs inhalation Q4-6H PRN 30 days atomoxetine (Strattera) 60 mg PO DAILY atomoxetine 80 mg PO DAILY atorvastatin 10 mg PO BEDTIME buprenorphine-naloxone 2-0.5 mg (Suboxone) 0.5 film buccal DAILY escitalopram oxalate (Lexapro) 10 mg PO BEDTIME pantoprazole 20 mg PO DAILY@0630 prazosin 1 mg PO BID PRN Tobacco use date assessed: 08/20/24 Dental Screening Dental Screen Date: 08/20/24 Did you have a dental visit in the last 12 months?: Yes Did you have a dental problem in the last 6 months where you did not have access to dental care?: No Was dental information given to patient?: Patient has dentist HPI f/u elevated liver enzymes HPI Details 48 y/o female presents to f/u liver enzymes, mildly elevated fasting blood sugar. Labs drawn 08/12/24. Reviewed labs with pt. A1c 4.9%. Liver enzymes improved - AST 29, ALT 27. PFSH Medical History Tubular adenoma of colon Anxiety Depression OCD (obsessive compulsive disorder) ADHD Asthma Dislocation of fifth toe, right, closed Cervical spondylosis Pneumothorax Cellulitis Pneumonia Tuberculosis Hepatitis Surgical History Normal esophagogastroduodenoscopy (EGD) Hx of colonoscopy (~2013) S/P lumpectomy, left breast [place] teeth extracted H/O: hysterectomy Family History Mother Breast cancer Anxiety Depression Substance use disorder Father Mental health disorder Paternal Grandmother Breast cancer Social History (Updated 08/20/24 @ 10:40 by Aleena Johnson MA) Household Members: Family Both parents involved: No Caregiver staying overnight: No Housing: House Are you a primary foster care social worker to a significant other at home: No Do you presently have visiting nurse or other home services: No 75 years or older and lives alone: No Alcohol intake: former Patient Tobacco Use Status: Current everyday Tobacco user Tobacco use type: Cigarette Cigarette Packs Per Day: 10 Cigarettes Per Day: 10 e-Cigarette/Vaping Use: Never Used Second Hand Smoke Exposure: Yes Use of substances other than those prescribed or required for medical reasons: Yes Substance Use Type: Marijuana Special nick needs: Yes Special nick accommodation details: [employer] Mobile service: No Current occupational status: employed 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 Cognitive needs: No Hearing needs: No Vision needs: Yes (Patient wears glasses) Questionnaire Thrive Questionnaire Date Thrive assessed: 04/10/24 I am a: Patient What is your living situation today?: I have a steady place to live Within the past 12 months, did the food you bought not last and you didn't have the money to get more?: Never true Within the past 12 months, did you worry whether your food would run out before you got money to buy more?: Never true Do you have trouble paying for medicines?: Yes Do you have trouble getting transportation to medical appointments?: No Do you have trouble paying your heating and electricity bill?: No Do you have trouble taking care of your child, family member or friend?: No Do you have trouble with day-to-day activities such as bathing, preparing meals, shopping, managing finances, etc.?: No Are you currently unemployed and looking for a job?: No Are you interested in more education?: Yes Please select the resources that you would like help with: Paying for medicine Currently or been in a relationship where the following occur: I choose not to answer THRIVE Score: 0 CHEMA-7 AMB Questionnaire CHEMA-7 Date CHEMA - 7 assessed: 04/16/24 Source: Developed by Drs. Kingston Neff, Tyesha Silver, Roberto Tamayo and colleagues, with an educational yovany from [employer]. Review of Systems Const Denies chills, Denies fatigue, Denies fever(s), Denies headache(s) and Denies weakness ENT Denies dizziness and Denies headache(s) Card Denies dyspnea Resp Denies cough, Denies dyspnea, Denies wheezing and Denies other (shortness of breath) Musc Denies numbness and Denies tingling Neuro Denies dizziness, Denies headache(s), Denies numbness, Denies tingling and Denies weakness Psych Denies anxiety and Denies depression Endo Denies fatigue Aller/Immun Denies wheezing Physical exam (Primary Care) Vital Signs: Last Vital Signs Temp 98.3 F 08/20/24 10:40 Pulse 91 08/20/24 10:40 Resp 16 08/20/24 10:40 BP 102/60 08/20/24 10:40 Pulse Ox 97 08/20/24 10:40 Oxygen Delivery Method Room Air 08/20/24 10:40 BMI result Body Mass Index 23.1 Tobacco/Smoking Status: Tobacco use Status Tobacco use date assessed 08/20/24 08/20/24 10:45 Patient Tobacco Use Status Current everyday Tobacco 08/20/24 10:40 Tobacco use type Cigarette 08/20/24 10:40 e-Cigarette/Vaping Use Never Used 08/20/24 10:40 Thrive Assessment: Date of Thrive Assessment Date Thrive assessed 04/10/24 08/20/24 10:35 Currently or been in a relationship where the following occur: I choose not to answer Const General: well developed; No acute distress Nutritional Appearance: well nourished Orientation/consciousness: patient oriented x3 HENMT Head: Yes normocephalic and Yes atraumatic Eyes General: appearance normal, both eyes and all related structures Pupils: Equal, round and reactive pupils present EOM: EOMs intact bilaterally Resp Effort & Inspection: normal respiratory effort Neuro General: patient oriented x3 and gait normal Cranial nerves: Yes Equal, round and reactive pupils present Psych Affect: normal affect Coding Level of Care Code Est Pt Level 4 (02755) Diagnoses Elevated liver enzymes R74.8 Elevated fasting glucose R73.01 Herpetic ronny B00.89 Assessment & Plan Assessment & Plan (1) Elevated liver enzymes: Code(s): R74.8 - Abnormal levels of other serum enzymes Category: Medical Plan: Liver?enzymes?back?in?normal?range Continue?good?hydration Avoid?excessive?Tylenol?or?alcohol (2) Elevated fasting glucose: Code(s): R73.01 - Impaired fasting glucose Category: Medical Plan: Still?has?mildly?elevated?fasting?blood?sugar. A1c?4.9%?however?which?is?within?range Nevertheless,?recommended?diet?lower?in?sugars?and?starches We?can?continue?to?monitor?periodically (3) Herpetic ronny: Code(s): B00.89 - Other herpesviral infection Category: Medical Plan: Lesions?on?her?finger?are?resolving Still?has?significant?erythema She?should?continue?using?a?moisturizer/barrier?cream Follow-up?with?infectious?disease Orders: Orders Lipid Panel Today E78.00 - Pure hypercholesterolemia, unspecified, Z00.00 - Encounter for general adult medical examination without abnormal findings Comprehensive [place]. Panel Fast Today E78.00 - Pure hypercholesterolemia, unspecified, Z00.00 - Encounter for general adult medical examination without abnormal findings Vitamin D 25-OH Total Today E55.9 - Vitamin D deficiency, unspecified, R79.89 - Other specified abnormal findings of blood chemistry
[2024-08-20 10:40] VITALS: BP 102/60; PULSE 91; RESP 16; TEMP 36.8; O2SAT 97; BMI 23.1
== END 2024-08-20 11:24 | disposition home or self-care (01) ==
LOC: HO.HMCFM 10:25
PROVIDERS: PCP Family Medicine; Visit Provider Family Medicine
DX: R74.8 Abnormal levels of other serum enzymes (principal); R73.01 Impaired fasting glucose; B00.89 Other herpesviral infection

== ENCOUNTER → 2024-08-20 10:24 | Outpatient (BNVA) | payer OTHER, SELFPAY | PROVIDERS: PCP Family Medicine; Visit Provider Family Medicine | DX: R74.8 Abnormal levels of other serum enzymes (principal); R73.01 Impaired fasting glucose; B00.89 Other herpesviral infection; E78.00 Pure hypercholesterolemia, unspecified; E55.9 Vitamin D deficiency, unspecified; R79.89 Other specified abnormal findings of blood chemistry | CPT/HCPCS: 99212 ==

== ENCOUNTER 2024-10-08 08:36 | Outpatient (REF) | payer OTHER, SELFPAY ==
[2024-10-08 12:02] LABS: Alanine Aminotransferase 20 U/L (0-31); Albumin Level 4.3 g/dL (3.5-5.0); Alkaline Phosphatase 71 U/L (39-117); Anion Gap 10 (12-20); Aspartate Amino Transferase 24 U/L (5-31); Blood Urea Nitrogen 19 mg/dL (9-16); Calcium 9.0 mg/dL (8.4-10.2); Carbon Dioxide 22 mmol/L (22-29); Chloride 109 mmol/L (96-108); Cholesterol 164 mg/dL (<200); Estimated Glomerular Filt Rate > 60; HDL Cholesterol 52 mg/dL (>40); Potassium 4.0 mmol/L (3.3-5.1); Sodium 137 mmol/L (135-145); Total Protein 6.7 g/dL (6.5-8.0); Triglycerides 48 mg/dL (<150)
== END 2024-10-08 08:37 | disposition home or self-care (01) ==
LOC: HO.WFDLDS 08:36
PROVIDERS: Visit Provider Family Medicine
DX: Z00.00 Encounter for general adult medical examination without abnormal findings (principal); R79.89 Other specified abnormal findings of blood chemistry; R74.8 Abnormal levels of other serum enzymes; E78.00 Pure hypercholesterolemia, unspecified; E55.9 Vitamin D deficiency, unspecified
CPT/HCPCS: 36415; 80053; 80061; 82306

== ENCOUNTER 2024-10-15 09:25 | Outpatient (AMB) | payer OTHER, SELFPAY ==
--- NOTE | 2024-10-15 09:34 | A.OFFPC_ITS ---
Vital Signs 10/15/24 09:44 Height 5 ft 3 in Weight 133 lb 8 oz BMI 23.6 BP 110/60 Blood Pressure Location Rt brachial Position Sitting Respiration 14 Pulse 115 H Pulse Source Pulse Oximeter Temp 98.7 F Temp Source Oral Pulse Oximetry (%) 98 Oxygen Delivery Method Room Air Intake Visit Reasons: f/u HLD, vitamin D Intake Note: patient is scheduled for lab review Health Information Manager Required: No Allergies adhesive Allergy (Intermediate, Verified 10/15/24 09:40) burn skin benzoin Allergy (Intermediate, Verified 10/15/24 09:40) Rash povidone-iodine Allergy (Intermediate, Verified 10/15/24 09:40) Rash buspirone (From BuSpar) Adverse Reaction (Mild, Verified 10/15/24 09:40) anxiety, jittery steri strips Allergy (Mild, Uncoded 08/20/24 10:36) burning skin Medication List - Last Reconciled 10/15/24 by Ney Fermin MD acetaminophen 650 mg PO Q6H PRN acetylcysteine (NAC) 1,200 mg PO BID albuterol sulfate 90 mcg/actuation (Ventolin HFA) 2 puffs inhalation Q4-6H PRN 30 days atomoxetine (Strattera) 60 mg PO DAILY atomoxetine 80 mg PO DAILY atorvastatin 10 mg PO BEDTIME buprenorphine-naloxone 2-0.5 mg (Suboxone) 0.5 film buccal DAILY pantoprazole 20 mg PO DAILY@0630 prazosin 1 mg PO TID PRN Tobacco use date assessed: 08/20/24 Dental Screening Dental Screen Date: 08/20/24 HPI f/u HLD, vitamin D HPI Details 48 y/o female presents to f/u HLD, vitam in D levels. Labs drawn 10/08/24. Reviewed labs with pt. Triglycerides 48. TC 164. LDL 103. HDL 52. She is on artovastatin 10mg. Vitamin D improved from 29.9 to 40.3 ng/mL. BP today 110/60, 115p. 97p upon relaxation. PFSH Medical History Tubular adenoma of colon Anxiety Depression OCD (obsessive compulsive disorder) ADHD Asthma Dislocation of fifth toe, right, closed Cervical spondylosis Pneumothorax Cellulitis Pneumonia Tuberculosis Hepatitis Surgical History Normal esophagogastroduodenoscopy (EGD) Hx of colonoscopy (~2013) S/P lumpectomy, left breast [place] teeth extracted H/O: hysterectomy Family History Mother Breast cancer Anxiety Depression Substance use disorder Father Mental health disorder Paternal Grandmother Breast cancer Social History (Updated 08/20/24 @ 10:40 by Aleena Johnson MA) Household Members: Family Both parents involved: No Caregiver staying overnight: No Housing: House Are you a primary sub acute care nurse to a significant other at home: No Do you presently have visiting nurse or other home services: No 75 years or older and lives alone: No Alcohol intake: former Patient Tobacco Use Status: Current everyday Tobacco user Tobacco use type: Cigarette Cigarette Packs Per Day: 10 Cigarettes Per Day: 10 e-Cigarette/Vaping Use: Never Used Second Hand Smoke Exposure: Yes Substance Use Type: Marijuana Special nick needs: Yes Special nick accommodation details: [employer] service: No Current occupational status: employed 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 Cognitive needs: No Hearing needs: No Vision needs: Yes (Patient wears glasses) Questionnaire Thrive Questionnaire Date Thrive assessed: 04/10/24 I am a: Patient What is your living situation today?: I have a steady place to live Within the past 12 months, did the food you bought not last and you didn't have the money to get more?: Never true Within the past 12 months, did you worry whether your food would run out before you got money to buy more?: Never true Do you have trouble paying for medicines?: Yes Do you have trouble getting transportation to medical appointments?: No Do you have trouble paying your heating and electricity bill?: No Do you have trouble taking care of your child, family member or friend?: No Do you have trouble with day-to-day activities such as bathing, preparing meals, shopping, managing finances, etc.?: No Are you currently unemployed and looking for a job?: No Are you interested in more education?: Yes Please select the resources that you would like help with: Paying for medicine Currently or been in a relationship where the following occur: I choose not to answer THRIVE Score: 0 CHEMA-7 AMB Questionnaire CHEMA-7 Date CHEMA - 7 assessed: 04/16/24 Source: Developed by Drs. Kingston Neff, Tyesha Silver, Roberto Tamayo and colleagues, with an educational yovany from [employer]. Review of Systems Const Denies chills, Denies fatigue, Denies fever(s), Denies headache(s) and Denies weakness ENT Denies dizziness and Denies headache(s) Card Denies chest pain, Denies lightheadedness, Denies dyspnea and Denies other (Palpitations) Resp Denies cough, Denies dyspnea, Denies wheezing and Denies other ( shortness of breath) Musc Denies numbness and Denies tingling Neuro Denies dizziness, Denies headache(s), Denies numbness, Denies tingling, Denies paresthesias and Denies weakness Psych Denies anxiety and Denies depression Endo Denies fatigue Aller/Immun Denies wheezing Physical exam (Primary Care) Vital Signs: Last Vital Signs Temp 98.7 F 10/15/24 09:44 Pulse 115 H 10/15/24 09:44 Resp 14 10/15/24 09:44 BP 110/60 10/15/24 09:44 Pulse Ox 98 10/15/24 09:44 Oxygen Delivery Method Room Air 10/15/24 09:44 BMI result Body Mass Index 23.6 Tobacco/Smoking Status: Tobacco use Status Tobacco use date assessed 08/20/24 10/15/24 09:36 Patient Tobacco Use Status Current everyday Tobacco 10/15/24 09:36 Tobacco use type Cigarette 10/15/24 09:36 e-Cigarette/Vaping Use Never Used 10/15/24 09:36 Thrive Assessment: Date of Thrive Assessment Date Thrive assessed 04/10/24 10/15/24 09:36 Currently or been in a relationship where the following occur: I choose not to answer Const General: no acute distress and well developed Nutritional Appearance: well nourished Orientation/consciousness: patient oriented x3 HENMT Head: Yes normocephalic and Yes atraumatic Eyes General: appearance normal, both eyes and all related structures Pupils: Equal, round and reactive pupils present EOM: EOMs intact bilaterally Resp Effort & Inspection: normal respiratory effort Auscultation: clear to auscultation bilaterally Cardio Rate: regular rate Rhythm: regular rhythm Heart sounds: S1 normal heart sound present, S2 normal heart sound present, no gallops, no murmurs and no rubs Neuro General: patient oriented x3 and gait normal Cranial nerves: Yes Equal, round and reactive pupils present Psych Affect: normal affect Coding Level of Care Code Est Pt Level 4 (58051) Diagnoses Hyperlipidemia E78.5 Low vitamin D level R79.89 Elevated fasting glucose R73.01 Herpetic ronny B00.89 Assessment & Plan Assessment & Plan (1) Hyperlipidemia: Code(s): E78.5 - Hyperlipidemia, unspecified Category: Medical Plan: LDL cholesterol slightly above goal of less than 100 HDL is within normal range Continue atorvastatin Encouraged a diet lower in saturated fats and cholesterol (2) Low vitamin D level: Code(s): R79.89 - Other specified abnormal findings of blood chemistry Category: Medical Plan: Had mildly low vitamin-D at prior Check She is not taking a supplement but getting out in some light more often Vitamin-D is within normal limits She can consider taking a supplement during the winter. (3) Elevated fasting glucose: Code(s): R73.01 - Impaired fasting glucose Category: Medical Plan: Mildly elevated fasting blood sugars A1c has been within normal range Encouraged a diet lower in sugars and starches We can continue monitor (4) Herpetic ronny: Code(s): B00.89 - Other herpesviral infection Category: Medical Plan: Outbreak of Ronny Start valacyclovir Will give her refills so she start medication at 1st sign of an outbreak Medications: New valacyclovir 500 mg PO Q12H 28 tabs 2RF 14 days
[2024-10-15 09:44] VITALS: BP 110/60; PULSE 115; RESP 14; TEMP 37.1; O2SAT 98; BMI 23.6
== END 2024-10-15 10:18 | disposition home or self-care (01) ==
LOC: HO.HMCFM 09:26
PROVIDERS: PCP Family Medicine; Visit Provider Family Medicine
DX: E78.5 Hyperlipidemia, unspecified (principal); R79.89 Other specified abnormal findings of blood chemistry; R73.01 Impaired fasting glucose; B00.89 Other herpesviral infection

== ENCOUNTER → 2024-10-15 09:25 | Outpatient (BNVA) | payer OTHER, SELFPAY | PROVIDERS: PCP Family Medicine; Visit Provider Family Medicine | DX: R73.01 Impaired fasting glucose (principal); E78.5 Hyperlipidemia, unspecified; R79.89 Other specified abnormal findings of blood chemistry; B00.89 Other herpesviral infection | CPT/HCPCS: 99212 ==

== ENCOUNTER 2024-12-30 08:51 | Outpatient (AMB) | payer OTHER, SELFPAY ==
--- NOTE | 2024-12-30 08:59 | A.OFFVIS_ITS ---
Vital Signs 12/30/24 09:00 Height 5 ft 3 in Weight 132 lb BMI 23.4 BP 132/86 Blood Pressure Location Rt brachial Position Sitting Pulse 116 H Pulse Source Pulse Oximeter Pulse Oximetry (%) 98 Oxygen Delivery Method Room Air Intake Visit Reasons: 6 mos FUV. GERD + fecal abn mgmt. Intake Note: Est pt for mgmt of GERD w/ hx of duodenitis. CC: C/O intermittent nausea and generalized abd pain intermittently. Pt reports that she has been making many med changes with help from other providers with regard to her mental health. Pt has been having some improvements but is unsure as to what is helping and exactly to what degree. 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 GERD + fecal abn mgmt.: Details: LAST VISIT: Tubular adenoma of colon Status post colonoscopy Duodenitis GERD (gastroesophageal reflux disease) Plan Patient will continue taking pantoprazole daily. Avoid dietary triggers and late night snacking. Staying upright for minimum 3 hours of him as discussed with patient. Colonoscopy in 7 years, sooner if clinically necessary. Patient will follow-up in the office in 6 months, sooner on as needed basis. Patient is agreeable to this plan and verbalizes understanding of instructions. She was given the opportunity to ask questions and all questions answered. ? Thank you for allowing me to participate in her care Refilled pantoprazole 20 mg PO DAILY 90 tabs 1RF TODAY'S VISIT Patient is here today for follow-up. Patient reports that her symptoms of acid reflux suppressed. Denies dyspepsia, dysphagia or odynophagia. Patient however reports waking up in the morning feeling nauseous. Patient denies eating late at night. Occasional snacking, however 3-4 hours before lying down. Patient is avoiding lactose. Patient reports moving her bowels daily. Denies constipation or diarrhea. Reports abdominal bloating depending on what she eats. Patient denies melena, hematochezia, unintentional weight loss or ribbon like stools. Patient denies any other GI concerning symptoms. Nausea is patient's only c oncern. [facility] Medical History Tubular adenoma of colon Anxiety Depression OCD (obsessive compulsive disorder) ADHD Asthma Dislocation of fifth toe, right, closed Cervical spondylosis Pneumothorax Cellulitis Pneumonia Tuberculosis Hepatitis Surgical History Normal esophagogastroduodenoscopy (EGD) Hx of colonoscopy (~2013) S/P lumpectomy, left breast [place] teeth extracted H/O: hysterectomy Family History Mother Breast cancer Anxiety Depression Substance use disorder Father Mental health disorder Paternal Grandmother Breast cancer Social History Household Members: Family Both parents involved: No Caregiver staying overnight: No Housing: House Are you a primary prompt care rn to a significant other at home: No Do you presently have visiting nurse or other home services: No 75 years or older and lives alone: No Alcohol intake: former Patient Tobacco Use Status: Current everyday Tobacco user Tobacco use type: Cigarette Cigarette Packs Per Day: 10 Cigarettes Per Day: 10 e-Cigarette/Vaping Use: Never Used Second Hand Smoke Exposure: Yes Substance Use Type: Marijuana Special nick needs: Yes Special nick accommodation details: pentecostalism service: No Current occupational status: employed 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 Cognitive needs: No Hearing needs: No Vision needs: Yes (Patient wears glasses) Review of Systems Const Denies weight gain and Denies weight loss ENT Reports no additional complaints, Denies dysphagia and Denies odynophagia Card Reports no additional complaints Resp Reports no additional complaints GI Denies abdominal pain, Denies belching, Denies melena, Denies bloating, Denies change in bowel habits, Denies dysphagia, Denies excessive flatus, Denies dyspepsia, Denies heartburn, Denies diarrhea, Denies loose stools, Reports nausea, Denies odynophagia and Denies vomiting Reports no additional complaints Musc Reports no additional complaints Neuro Reports no additional complaints Psych Reports no additional complaints Endo Reports no additional complaints Physical Exam Vital Signs: Last Vital Signs Pulse 116 H 12/30/24 09:00 BP 132/86 12/30/24 09:00 Pulse Ox 98 12/30/24 09:00 Oxygen Delivery Method Room Air 12/30/24 09:00 BMI result Body Mass Index 23.4 Const General: healthy appearing, no acute distress and well developed Nutritional Appearance: well nourished Orientation/consciousness: patient oriented x3 Resp Effort & Inspection: normal respiratory effort, able to speak in complete sentences, no tracheal deviation and symmetric chest movement Auscultation: clear to auscultation bilaterally Cardio Rate: regular rate GI Inspection: Yes normal to inspection and No distended Palpation (GI): Soft to palpation, not firm, nontender and No hepatosplenomegaly present Auscultation: normal bowel sounds General: Yes no CVA tenderness Back/Spine/Pelvis Back: no CVA tenderness Skin General skin exam: elasticity normal, turgor normal and dry skin Neuro General: patient oriented x3 Psych Appearance: grossly normal Mental Status: mental status grossly normal Assessment & Plan Assessment & Plan (1) Nausea: Code(s): R11.0 - Nausea (2) GERD (gastroesophageal reflux disease): Code(s): K21.9 - Gastro-esophageal reflux disease without esophagitis Qualifiers: Esophagitis presence: esophagitis presence not specified Qualified Code(s): K21.9 - Gastro-esophageal reflux disease without esophagitis Plan We will change PPI to Nexium. Patient will take famotidine at bedtime. Avoid dietary triggers and late night snacking. Staying upright for minimal 3 hours after meals discussed with patient. Patient will be sent for upper GI with barium swallow. Follow-up in 6 months, sooner on as needed basis. Patient is agreeable to current plan of care and verbalizes understanding of instructions. She was given the opportunity to ask questions and all questions answered. Thank you for allowing me to participate in her care Orders: Orders FL upper GI w air w Ba Swallow Today K21.9 - Gastro-esophageal reflux disease without esophagitis Medications: New esomeprazole magnesium (Nexium) 40 mg PO DAILY 30 caps 3RF K21.9 - Gastro-esophageal reflux disease without esophagitis famotidine (Pepcid) 20 mg PO BEDTIME 30 tabs 3RF K21.9 - Gastro-esophageal reflux disease without esophagitis Coding Level of Care Code Est Pt Level 4 (84601) Complex EM visit Add On G2211 Diagnoses Nausea R11.0 Gastroesophageal reflux disease, unspecified whether esophagitis present K21.9 Esophagitis presence: esophagitis presence not specified Time Spent (min) 35 Comment 25 minutes spent with patient and additional 10 minutes spent reviewing her records
[2024-12-30 09:00] VITALS: BP 132/86; PULSE 116; O2SAT 98; BMI 23.4
== END 2024-12-30 09:41 | disposition home or self-care (01) ==
PROVIDERS: PCP Family Medicine; Visit Provider Nurse Practitioner Family
DX: R11.0 Nausea (principal); K21.9 Gastro-esophageal reflux disease without esophagitis
CPT/HCPCS: 99214

== ENCOUNTER → 2024-12-30 08:51 | Outpatient (BNVA) | payer OTHER, SELFPAY | PROVIDERS: PCP Family Medicine; Visit Provider Nurse Practitioner Family | DX: K21.9 Gastro-esophageal reflux disease without esophagitis (principal); R11.0 Nausea | CPT/HCPCS: 99212 ==

== ENCOUNTER 2025-01-09 10:15 | Outpatient (REF) | payer OTHER, SELFPAY ==
--- NOTE | ~2025-01-09 | FL_ITS ---
EXAMINATION: XR UPPER GI SERIES WITH barium swallow CLINICAL INFORMATION: Gastro-esophageal reflux disease without esophagitis COMPARISON: None available. TECHNIQUE: Patient was administered thin and thick barium and effervescent granules. A barium tablet was also administered. FINDINGS: There is trace laryngeal penetration with liquid barium. No aspiration. Esophageal motility is normal. There is mild gastroesophageal reflux. No esophageal hernia. No mass or stricture. There are prominent gastric folds questionable for gastritis. No mass, stricture or ulcer seen. Proximal small bowel is normal. FLUOROSCOPY TIME: 1.2 minutes DOSE AREA PRODUCT: 636 uGy-m2 (microgray-meter squared) FL/FL upper GI w air w Ba Swallow IMPRESSION: Trace laryngeal penetration. No aspiration. Mild gastroesophageal reflux. Prominent gastric folds questionable for gastritis. Electronically signed by: Dolores Sandhu MD 01/09/2025 04:54 PM EDT
== END 2025-01-09 10:16 | disposition home or self-care (01) ==
LOC: HO.XRAY 10:15
PROVIDERS: PCP Family Medicine; Visit Provider Nurse Practitioner Family
DX: K21.9 Gastro-esophageal reflux disease without esophagitis (principal)
CPT/HCPCS: 74246

== ENCOUNTER → 2025-01-09 10:16 | Outpatient (BNV) | payer OTHER, SELFPAY | PROVIDERS: PCP Family Medicine; Visit Provider Radiology Diagnostic Radiology | DX: K21.9 Gastro-esophageal reflux disease without esophagitis (principal) | CPT/HCPCS: 74246 ==

== ENCOUNTER 2025-02-02 08:53 | Outpatient (REF) | payer OTHER, SELFPAY ==
--- OUTSIDE RECORDS SUMMARY | 2008-08-04 15:45 | XMS_ITS | Continuity of Care Document ---
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 [address] [place] [address], [facility] [place][note 2], . tel:[phone] Referring Provider: Sin Mendiola , [address] [place] [address], [facility] [place][note 2]. tel:[phone] [facility] [address] Services, [address], [place] [address], tel:[phone] [facility] No Information Marlena Vogt. [address] [place] [address], [facility] [place][note 2], . tel:[phone] Referring Provider: Sin Mendiola [address] [place] [address], [facility] [place][note 2]. tel:[phone] Family History Family Member Type Diagnosis Age At Onset No Information Payers Payer name Insurance type Covered libertarian ID Authoriza tion(s) No Information Social History Type Description Quantity Date Captured Comments Sex Female Smoking Status No Information Chief Complaint And Reason For Visit No Information Reason For Referral Reason For Referral No Information History Of Present Illness Encounter Date Complaint History Of Prese nt Illness No Information Functional Status Date Functional Assessmen t No Information Instructions Date Instruction Additional Infor mation No Information Assessments Type Assessment Date No Information Patient Care Teams Name Effective Dates (start - stop) Status Members No Information
[2025-02-02 11:50] LABS: Hematocrit 45.3 % (37.0-47.0); Hemoglobin 15.1 g/dl (12.0-16.0); Imm Gran Abs Auto 0.03 X10*3/uL (0.00-0.03); Imm Gran Pct Auto 0.6 % (0.0-0.4); Lymphocytes Absolute Auto 1.5 X10*3/uL (1.2-4.9); Mean Corpuscular HGB Conc 33.3 g/dl (31.0-35.0); Mean Corpuscular Hemoglobin 31.8 pg (27.0-33.0); Mean Corpuscular Volume 95.4 fL (80.0-98.0); NRBC Abs Auto 0.000 X10*3/uL (0.0-0.012); NRBC Pct Auto 0.0 /100WBC (0.0-0.2); Red Blood Count 4.75 X10*6/uL (4.20-5.50)
[2025-02-02 11:52] LABS: White Blood Count 5.4 X10*3/uL (4.8-10.8)
[2025-02-02 11:53] LABS: Platelet Count 167 X10*3/uL (160-400)
[2025-02-02 12:22] LABS: Alanine Aminotransferase 15 U/L (0-31); Albumin Level 4.6 g/dL (3.5-5.0); Alkaline Phosphatase 85 U/L (39-117); Anion Gap 11 (12-20); Aspartate Amino Transferase 26 U/L (5-31); Blood Urea Nitrogen 15 mg/dL (9-16); Calcium 9.3 mg/dL (8.4-10.2); Carbon Dioxide 23 mmol/L (22-29); Chloride 110 mmol/L (96-108); Cholesterol 216 mg/dL (<200); Estimated Glomerular Filt Rate > 60; HDL Cholesterol 51 mg/dL (>40); Potassium 4.0 mmol/L (3.3-5.1); Sodium 140 mmol/L (135-145); Total Protein 7.4 g/dL (6.5-8.0); Triglycerides 63 mg/dL (<150)
== END 2025-02-02 08:54 | disposition home or self-care (01) ==
LOC: HO.WFDLDS 08:53
PROVIDERS: Visit Provider Family Medicine
DX: Z00.00 Encounter for general adult medical examination without abnormal findings (principal); E78.00 Pure hypercholesterolemia, unspecified; E55.9 Vitamin D deficiency, unspecified
CPT/HCPCS: 36415; 80053; 80061; 82306; 85025

== ENCOUNTER 2025-02-05 09:22 | Outpatient (AMB) | payer OTHER, SELFPAY ==
--- NOTE | 2025-02-05 09:29 | A.OFFPC_ITS ---
Vital Signs 02/05/25 09:32 02/05/25 09:43 Height 5 ft 3 in Weight 134 lb 2 oz BMI 23.8 BP 144/86 H 122/85 Blood Pressure Location Lt brachial Lt brachial Position Sitting Sitting Respiration 12 Pulse 108 H Pulse Source Pulse Oximeter Temp 98 F Temp Source Oral Pulse Oximetry (%) 96 Oxygen Delivery Method Room Air Intake Visit Reasons: f/u HLD, chronic conditions Intake Note: Follow up blood work. Has been off cholestrol medication for a month. Allergies adhesive Allergy (Intermediate, Verified 02/05/25 09:32) burn skin benzoin Allergy (Intermediate, Verified 02/05/25 09:32) Rash povidone-iodine Allergy (Intermediate, Verified 02/05/25 09:32) Rash buspirone (From BuSpar) Adverse Reaction (Mild, Verified 02/05/25 09:32) anxiety, jittery steri strips Allergy (Mild, Uncoded 02/05/25 09:32) burning skin Medication List - Last Reconciled 02/05/25 by Ney Fermin MD acetaminophen 650 mg PO Q6H PRN acetylcysteine (NAC) 1,200 mg PO BID albuterol sulfate 90 mcg/actuation (Ventolin HFA) 2 puffs inhalation Q4-6H PRN 30 days atomoxetine 80 mg PO DAILY buprenorphine-naloxone 2-0.5 mg (Suboxone) 0.5 film buccal DAILY esomeprazole magnesium (Nexium) 40 mg PO DAILY prazosin 1 mg PO TID PRN rosuvastatin 5 mg PO DAILY 90 days sucralfate 1 g PO BEDTIME valacyclovir 500 mg PO Q12H 14 days Tobacco use date assessed: 02/05/25 Dental Screening Dental Screen Date: 08/20/24 HPI f/u HLD, chronic conditions HPI Details 49 y/o female presents to f/u D, labs. Labs drawn 02/02/25. Reviewed labs with pt. Triglycerides 63. TC 216. LDL 153. HDL 51. Pt notes she had been on rosuvastatin 5mg but had been having abd. discomfort. She was not sure if this was due to rosuvastatin. Vitamin D 40.5 ng/mL. Hx of elevated fasting glucose. A1c today 02/05/25 5.1%. Has complaints of some dermatitis behind her ear. HPI Comments History of Present Illness Details Documentation assistance for Ney Fermin MD, was provided by Joe Mariano,? [employer] on 02/05/2025 at 9:46 AM EST. I, Dr. Fermin, have read, observed, and verified documentation. [facility] Medical History Tubular adenoma of colon Anxiety Depression OCD (obsessive compulsive disorder) ADHD Asthma Dislocation of fifth toe, right, closed Cervical spondylosis Pneumothorax Cellulitis Pneumonia Tuberculosis Hepatitis Surgical History Normal esophagogastroduodenoscopy (EGD) Hx of colonoscopy (~2013) S/P lumpectomy, left breast [place] teeth extracted H/O: hysterectomy Family History Mother Breast cancer Anxiety Depression Substance use disorder Father Mental health disorder Paternal Grandmother Breast cancer Social History Household Members: Family Both parents involved: No Caregiver staying overnight: No Housing: House Are you a primary caregiver assisted living to a significant other at home: No Do you presently have visiting nurse or other home services: No 75 years or older and lives alone: No Alcohol intake: former Patient Tobacco Use Status: Current everyday Tobacco user Tobacco use type: Cigarette Cigarette Packs Per Day: 10 Cigarettes Per Day: 10 Years Smoked: 30 e-Cigarette/Vaping Use: Never Used Second Hand Smoke Exposure: Yes Substance Use Type: Marijuana Special nick needs: Yes Special nick accommodation details: buddhist service: No Current occupational status: employed 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 Cognitive needs: No Hearing needs: No Vision needs: Yes (Patient wears glasses) Questionnaire Thrive Questionnaire Date Thrive assessed: 04/10/24 I am a: Patient What is your living situation today?: I have a steady place to live Within the past 12 months, did the food you bought not last and you didn't have the money to get more?: Never true Within the past 12 months, did you worry whether your food would run out before you got money to buy more?: Never true Do you have trouble paying for medicines?: Yes Do you have trouble getting transportation to medical appointments?: No Do you have trouble paying your heating and electricity bill?: No Do you have trouble taking care of your child, family member or friend?: No Do you have trouble with day-to-day activities such as bathing, preparing meals, shopping, managing finances, etc.?: No Are you currently unemployed and looking for a job?: No Are you interested in more education?: Yes Please select the resources that you would like help with: Paying for medicine Currently or been in a relationship where the following occur: I choose not to answer THRIVE Score: 0 AUDIT C Alcohol Use Questionnaire (AUDIT-C) 1. How often do you have a drink containing alcohol?: Never 3. How often do you have six or more drinks on one occasion?: Never Total Score: 0 CHEMA-7 AMB Questionnaire CHEMA-7 Date CHEMA - 7 assessed: 04/16/24 Source: Developed by Drs. Kingston Neff, Tyesha Silver, Roberto Tamayo and colleagues, with an educational yovany from [employer]. Review of Systems Const Denies chills, Denies fatigue, Denies fever(s), Denies headache(s) and Denies weakness ENT Denies dizziness and Denies headache(s) Card Denies dyspnea Resp Denies cough, Denies dyspnea, Denies wheezing and Denies other (shortness of breath) Musc Denies numbness and Denies tingling Neuro Denies dizziness, Denies headache(s), Denies numbness, Denies tingling and Denies weakness Psych Denies anxiety and Denies depression Endo Denies fatigue Aller/Immun Denies wheezing Physical exam (Primary Care) Vital Signs: Last Vital Signs Temp 98 F 02/05/25 09:32 Pulse 108 H 02/05/25 09:32 Resp 12 02/05/25 09:32 BP 122/85 02/05/25 09:43 Pulse Ox 96 02/05/25 09:32 Oxygen Delivery Method Room Air 02/05/25 09:32 BMI result Body Mass Index 23.8 Tobacco/Smoking Status: Tobacco use Status Tobacco use date assessed 02/05/25 02/05/25 09:37 Patient Tobacco Use Status Current everyday Tobacco 02/05/25 09:31 Tobacco use type Cigarette 02/05/25 09:31 e-Cigarette/Vaping Use Never Used 11/06/25 09:31 Thrive Assessment: Date of Thrive Assessment Date Thrive assessed 04/10/24 02/05/25 09:31 Currently or been in a relationship where the following occur: I choose not to answer Const General: well developed; No acute distress Nutritional Appearance: well nourished Orientation/consciousness: patient oriented x3 HENMT Head: Yes normocephalic and Yes atraumatic Eyes General: appearance normal, both eyes and all related structures Pupils: Equal, round and reactive pupils present EOM: EOMs intact bilaterally Resp Effort & Inspection: normal respiratory effort Auscultation: clear to auscultation bilaterally Cardio Rate: regular rate Rhythm: regular rhythm Heart sounds: S1 normal heart sound present, S2 normal heart sound present, no gallops, no murmurs and no rubs Neuro General: patient oriented x3 and gait normal Cranial nerves: Yes Equal, round and reactive pupils present Psych Affect: normal affect Results AMB Hemoglobin A1c AMB Hemoglobin A1c 5.1 % Last Edit by Nanci Dave CMA on 02/05/25 09:45 Coding Level of Care Code Est Pt Level 4 (37972) Diagnoses Hyperlipidemia E78.5 Elevated fasting glucose R73.01 Dermatitis L30.9 Assessment & Plan Assessment & Plan (1) Hyperlipidemia: Code(s): E78.5 - Hyperlipidemia, unspecified Category: Medical Plan: LDL cholesterol has increased considerably as patient has stopped her medication. She will resume this. I have sent a new script to refill rosuvastatin 5 mg daily Will recheck prior to next visit (2) Elevated fasting glucose: Code(s): R73.01 - Impaired fasting glucose Category: Medical Plan: A1c remains in normal range Encouraged diet lower in sugars and starches (3) Dermatitis: Code(s): L30.9 - Dermatitis, unspecified Category: Medical Plan: Patient has mild dermatitis at posterolateral aspect of left side of neck and behind her ear Use a moisturizing cream with no dyes or perfumes. Can lose hydrocortisone b.i.d. for few days if it flares up. Referred to dermatology at patient request Orders: Orders AMB Hemoglobin A1c Today R73.01 - Impaired fasting glucose Comprehensive [place]. Panel Fast Today E78.5 - Hyperlipidemia, unspecified, Z00.00 - Encounter for general adult medical examination without abnormal findings Lipid Panel Today E78.5 - Hyperlipidemia, unspecified, Z00.00 - Encounter for general adult medical examination without abnormal findings Referrals Dermatology Referral B00.89 - Other herpesviral infection, I89.1 - Lymphangitis, L30.9 - Dermatitis, unspecified Medications: New rosuvastatin 5 mg PO DAILY 90 tabs 3RF 90 days
[2025-02-05 09:32] VITALS: BP 144/86; PULSE 108; RESP 12; TEMP 36.6; O2SAT 96; BMI 23.8
[2025-02-05 09:43] VITALS: BP 122/85
== END 2025-02-05 10:00 | disposition home or self-care (01) ==
LOC: HO.HMCFM 09:23
PROVIDERS: PCP Family Medicine; Visit Provider Family Medicine
DX: E78.5 Hyperlipidemia, unspecified (principal); R73.01 Impaired fasting glucose; L30.9 Dermatitis, unspecified

== ENCOUNTER → 2025-02-05 09:22 | Outpatient (BNVA) | payer OTHER, SELFPAY | PROVIDERS: PCP Family Medicine; Visit Provider Family Medicine | DX: R73.01 Impaired fasting glucose (principal); E78.5 Hyperlipidemia, unspecified; L30.9 Dermatitis, unspecified | CPT/HCPCS: 83036; 99212 ==